=== PATIENT | male | born 1970 | race Two or more races ===

== ENCOUNTER → 2024-06-11 | Outpatient (CLI) | payer MEDICARE, MEDICAID, SELFPAY ==
[2024-06-11 08:54] LABS: Prostate Specific Antigen 1.55 ng/mL (0-4.00)
== END | disposition home or self-care (01) ==
PROVIDERS: PCP Urology; Referring Provider Urology; Visit Provider Urology
DX: R97.20 Elevated prostate specific antigen [PSA] (principal)
CPT/HCPCS: 36415; 84153

== ENCOUNTER → 2024-06-20 | Outpatient (BNVA) | payer MEDICARE, MEDICAID, SELFPAY | END | disposition home or self-care (01) | PROVIDERS: PCP Nurse Practitioner Primary Care; Referring Provider Nurse Practitioner Primary Care; Visit Provider Urology | DX: N40.1 Benign prostatic hyperplasia with lower urinary tract symptoms (principal); N13.8 Other obstructive and reflux uropathy; N52.9 Male erectile dysfunction, unspecified; E66.01 Morbid (severe) obesity due to excess calories; I10 Essential (primary) hypertension; E11.9 Type 2 diabetes mellitus without complications | CPT/HCPCS: 81003; 99212; G0463 ==

== ENCOUNTER 2024-07-08 09:15 | Day surgery (SDC) | payer MEDICARE, MEDICAID, SELFPAY ==
[2024-07-07 15:39] VITALS: BMI 44.4
[2024-07-08] VITALS (23 sets, daily range): BP systolic 127–176; BP diastolic 83–116; PULSE 56–83; RESP 12–24; TEMP 36.3–36.7; O2SAT 94–98
[2024-07-08] MEDS: hydrALAZINE INJ 20 MG/ML VIAL 10 MG IV (10:53)
[2024-07-08] MEDS: fentaNYL CIT INJ 50 mCg/ML AMP 2ML (ASD USE ONLY) IV (11:42)
[2024-07-08] MEDS: MIDAZOLAM INJ 1 MG/ML VIAL 2 ML (ASD USE ONLY) 2 MG IV (11:42)
[2024-07-08] MEDS: RINGERS LACTATED 1000 ML 1,000 ML 60 ML IV (11:42)
[2024-07-08] MEDS: DiphenhydrAMINE INJ 50 MG/ML VIAL 25 MG IV (11:45)
== END 2024-07-08 13:04 | disposition home or self-care (01) ==
PROVIDERS: PCP Physician Assistant; Referring Provider Specialist; Visit Provider Specialist
PROC: 0DBE8ZX Excision of Large Intestine, Via Natural or Artificial Opening Endoscopic, Diagnostic (ICD-10-PCS; CPT 45380; principal; 2024-07-08 14:30)
PROC: (CPT 43239; 2024-07-08 14:30)
DX: C20 Malignant neoplasm of rectum (principal); K60.2 Anal fissure, unspecified; K64.9 Unspecified hemorrhoids; K29.51 Unspecified chronic gastritis with bleeding; K63.5 Polyp of colon
CPT/HCPCS: 45385; 45380; A4649; J0360; J1200; J2250; J3010; J7120

== ENCOUNTER 2024-07-09 12:56 | Inpatient (IN) | payer MEDICARE, MEDICAID, SELFPAY ==
[2024-07-09 13:25] VITALS: BP 133/98; PULSE 86; RESP 18; TEMP 36.2; O2SAT 95
[2024-07-09 13:41] VITALS: BMI 46.1
--- NOTE | 2024-07-09 14:04 | XR_ITS ---
Examination: CT chest with intravenous contrast CT abdomen with intravenous contrast CT pelvis with intravenous contrast 2-D coronal and sagittal reconstructions Time of exam: July 09, [address] abdomen and pelvis June 21, 2019 INDICATIONS: Diagnosis colorectal cancer, onset lower abdominal pain today CTDI: vol (mGy) : 15.5 DLP: (mGycm): 1354 Technique: Multiple axial images of the chest, abdomen and pelvis with intravenous contrast, 3.0 mm slice thickness. Images obtained post intravenous injection Isovue 370 60 cc. 2-D sagittal and coronal reconstructions. Low dose protocols were performed. One or more of the following dose reduction techniques were used; automated exposure control, adjustment of the mA and/or KV according to patient size, use of iterative reconstruction technique. Findings: Bilateral thyroid calcifications, 10 mm right thyroid nodule No thoracic lytic aneurysm dilatation No pulmonary artery filling defects Significant calcification left anterior descending coronary artery. No paratracheal tracheobronchial or bronchopulmonary adenopathy No pneumonia, pulmonary edema, pleural disease or pulmonary nodules No liver or splenic lesions No gallstones No pancreatic or adrenal mass No interval of abdominal or pelvic lymphadenopathy. Moderate renal parenchymal scar formation 20 mm fat-containing umbilical hernia Normal appendix No bowel obstruction Mediolateral prostate dimension 5.5 cm Urinary bladder is intact Moderate osteopenia IMPRESSION: No interval metastatic disease
[2024-07-09] MEDS: DEXTROSE 5%-LACTATED RINGERS 1,000 ML 50 ML IV (15:27)
[2024-07-09 16:00] VITALS: BP 154/89; PULSE 78; RESP 18; TEMP 37.2; O2SAT 94
--- NOTE | 2024-07-09 16:20 | PD.SURHP ---
HPI Date of Admission 07/09/24 12:56 Chief Complaint Chief Complaint: Rectosigmoid colon cancer and multiple polyps. 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 He also has had multiple polyps. He had a recent colonoscopy on Sunday and the proximal margin was marked for resection. He will undergo exploratory laparotomy sigmoid resection and coloproctostomy. Risk benefits and alternatives were discussed in detail with the patient and the family and informed consent was obtained. He has a history of diabetes he also has history of corneal transplantation for the right eye. He also had an upper GI endoscopy that showed that he has gastritis. Patient will undergo CT scan of the chest abdomen and pelvis with contrast prior to surgery. Estimated length of stay about 5 to 7 days. Past Medical History Past Medical History NEUROLOGIC: Negative Neurological Disorders or Seizures CARDIAC: Positive Hypercholesterolemia and Hypertension; Negative Cardiac Disorders or Congestive Heart Failure RESPIRATORY: Negative Chronic Obstructive Pulmonary Disease (COPD) or Asthma GASTROINTESTINAL: Positive Obesity; Negative Gastrointestinal Disorders GENITOURINARY: Negative Genitourinary Disorders or Renal Disease REPRODUCTIVE: Negative Breast Cancer MUSCULOSKELETAL: Negative Musculoskeletal Disorders ENDOCRINE: Positive Endocrine Disorders (diabetes); Negative Diabetes Mellitus Type 1 or Diabetes Mellitus Type 2 HEMATOLOGIC: Negative Blood Disorders or Sickle Cell Disease OTHER HISTORY: Negative Autoimmune Disease, Blood Transfusions, Anesthesia Reactions, Clostridium Difficile or Breast Cancer Family History FAMILY HISTORY: Positive Family Cardiac Disorders (hypertension mother) Surgical History SURGICAL: Positive Eye Surgery; Negative Cardiac Surgery, Endocrine Surgery, Abdominal Surgery, Nephrectomy, Joint Replacement, Neurologic Surgery or Mastectomy Social History SMOKING STATUS: Never smoker Meds Home Medications and Allergies Home Medications ?Medication ?Instructions ?Recorded ?Confirmed ?Type valsartan 160 1 tab PO QDAY 04/26/23 07/08/24 History mg-hydrochlorothiazide 12.5 mg tablet tamsulosin 0.4 mg capsule 0.4 mg PO QHS 06/20/24 07/08/24 History acyclovir 400 mg tablet 400 mg PO QDAY 07/08/24 07/08/24 History amlodipine 5 mg tablet 5 mg PO QDAY 07/08/24 07/08/24 History atorvastatin 20 mg tablet 20 mg PO QDAY 07/08/24 07/08/24 History empagliflozin 12.5 mg-metformin 1 tab PO QDAY 07/08/24 07/08/24 History 500 mg tablet (Synjardy) Allergies Allergy/AdvReac Type Severity Reaction Status Date / Time No Known Allergies Allergy Verified 07/08/24 09:59 Exam Vital Signs Temp Pulse Resp BP Pulse Ox O2 Del Method 97.2 F 86 18 133/98 H 95 Room Air 07/09/24 13:25 07/09/24 13:25 07/09/24 13:25 07/09/24 13:25 07/09/24 13:25 07/09/24 13:25 Constitutional Constitutional: no acute distress Comments: This patient is obese. Routine HEENT Exam Head: Present normocephalic Eye: Present EOMI and PERRL ENT: Present mucous membranes moist Routine Neck Exam Neck: Present supple and trachea midline Routine Chest/Breast/Axilla Exam Chest wall: Absent tenderness or mass Routine Respiratory Exam Respiratory: Present chest non-tender, lungs clear, normal breath sounds and no resp distress; Absent respiratory distress Routine Cardiovascular Exam Cardiovascular: Present RRR Routine Abdominal Exam Abdominal: Present soft and normoactive bowel sounds Routine Extremities Exam Extremities: Present full ROM Routine Skin Exam Skin: Present intact, dry and warm Routine Neurological Exam Neurological: Present alert, oriented X3 and CN II-XII intact Routine Psychiatric Exam Psychiatric: Present normal affect and normal thought process Results Results: Laboratory Laboratory results: pending Results: Imaging CT scan - abdomen: pending CT scan - chest: pending CT scan - pelvis: pending EKG: pending Assessment & Plan Problem List (1) Rectosigmoid cancer: Status: Acute (2) Colorectal polyps: Status: Acute (3) Hypertension: Qualifiers: Hypertension type: essential hypertension Qualified Code(s): I10 - Essential (primary) hypertension Status: Chronic (4) Obesity (BMI 30-39.9): Status: Chronic Plan Exploratory laparotomy sigmoid resection and coloproctostomy. Risk benefits alternatives were discussed with the patient and family and informed consent is obtained. Quality Measures Quality Measures VTE prophylaxis
--- NOTE | 2024-07-09 16:31 | EKG_ITS ---
[facility] Test Date: 2024-07-09 Pat Name: DONNA ROSALES [facility] Gender: Male Full Roll Inspector: KELBY : 1970 Requested By: Samuel Beckham Order Number: [id number] Reading MD: Samuel Beckham Measurements Intervals [place] Rate: 73 P: 25 CT: 185 QRS: 29 QRSD: 89 T: 30 QT: 393 QTc: 434 Interpretive Statements SINUS RHYTHM LOW QRS VOLTAGE IN PRECORDIAL LEADS POSSIBLE ANTERIOR MYOCARDIAL INFARCTION , PROBABLY OLD No previous ECG available for comparison /store/S0/[id number]/ecg/[id number].pdf
[2024-07-09 17:16] LABS: Basophils % (Auto) 0 % (0-2.5); Eosinophils # (Auto) 0.1 Thou/mm3 (0.0-0.5); Eosinophils % (Auto) 1 % (0-10); Hematocrit 50.9 % (41.0-53.0); Hemoglobin 17.4 g/dL (13.5-16.0); Immature Granulocytes % (Auto) 0 % (0-0); Immature Granulocytes Auto 0.03 Thou/mm3 (0.00-0.00); Lymphocytes # (Auto) 2.3 Thou/mm3 (1.0-4.8); Lymphocytes % (Auto) 25 % (10-50); Mean Corpuscular HGB Conc 34.2 g/dl (31.0-37.0); Mean Corpuscular Hemoglobin 31.2 pg (25.0-35.0); Mean Corpuscular Volume 91 fL (80-100); Monocytes # (Auto) 0.9 Thou/mm3 (0.0-0.8); Monocytes % (Auto) 10 % (0-12); Neutrophils # (Auto) 5.9 Thou/mm3 (1.8-7.7); Neutrophils % (Auto) 64 % (37-80); Nucleated Red Blood Cell % 0 /100 WBC (0); Platelet Count 270 Thou/mm3 (140-440); RDW Standard Deviation 44.5 fL (35.1-43.9); Red Blood Count 5.57 Miln/mm3 (4.50-5.90); White Blood Count 9.2 Thou/mm3 (3.8-10.6)
[2024-07-09 17:33] LABS: INR 1.1 (0.9-1.3); Partial Thromboplastin Time 26.2 Seconds (22.0-36.0); Prothrombin Time 11.7 Seconds (9.0-12.2)
[2024-07-09 17:34] LABS: Alanine Aminotransferase 25 U/L (10-49); Albumin, Serum 4.7 gm/dL (3.5-5.0); Albumin/Globulin Ratio 1.5 (1.2-2.2); Alkaline Phosphatase 100 U/L (46-116); Anion Gap 6 (7-16); Aspartate Amino Transferase 19 U/L (0-34); BUN/Creatinine Ratio 10 Ratio (12-20); Blood Urea Nitrogen 10 mg/dL (9-23); Calcium 9.9 mg/dL (8.3-10.6); Calcium (Corrected) 9.9 mg/dL (8.5-10.1); Carbon Dioxide 28.5 mMol/L (20.0-31.0); Chloride 105 mMol/L (98-107); Estimated Creatinine Clearance 119.2 mL/min (>60); Globulin 3.2 gm/dL (2.3-3.5); Glucose 97 mg/dL (74-106); Osmolality,Calculated 276 (275-295); Potassium 4.5 mMol/L (3.4-5.1); Sodium 139 mMol/L (136-145); Total Protein 7.9 gm/dL (5.7-8.2); eGFR > 60 See Note
--- NOTE | 2024-07-09 17:52 | PC.NURSE ---
Dr. Beckham, order clear liquid diet, NPO after midnight, patient can take blood pressure medications with small sip of water tomorrow morning. Orders received, read back, and carried out.
[2024-07-09 20:00] VITALS: BP 127/87; PULSE 82; RESP 18; TEMP 36.3; O2SAT 92
[2024-07-09] MEDS: ATORVASTATIN CALCIUM 20 MG TABLET PO (21:14)
[2024-07-09] MEDS: TAMSULOSIN HCL 0.4 MG CAPSULE PO (21:15)
[2024-07-09] MEDS: ACYCLOVIR 200 MG CAPSULE 400 MG PO (21:15)
[2024-07-10] VITALS (15 sets, daily range): BP systolic 97–143; BP diastolic 73–90; PULSE 62–109; RESP 12–20; TEMP 36.1–36.8; O2SAT 93–98
[2024-07-10] MEDS: amLODIPine BESYLATE 5 MG TABLET PO (06:11)
[2024-07-10] MEDS: HYDROCHLOROTHIAZIDE 25 MG PO (06:12)
[2024-07-10] MEDS: VALSARTAN 160 MG PO (06:12)
--- NOTE | 2024-07-10 08:45 | PC.NURSE ---
Patient to OR via bed for Ex lap sigmoid colectomy and coloproctostomy.
--- NOTE | 2024-07-10 14:18 | ESOP_ITS ---
Date of Procedure 07/10/24 Pre Op Diagnosis Sigmoid colon cancer and umbilical hernia Post Op Diagnosis Same Procedure Exploratory laparotomy sigmoid colectomy and coloproctostomy and umbilical hernia repair on July 10, 2024 Findings This patient had an invasive carcinoma at the rectosigmoid junction. After the specimen was removed there was clear margin. Umbilical hernia was incarcerated with omentum and it was removed. Procedure Description The patient was interviewed in the preop area along with his daughter. The procedure was again discussed with the patient and all questions were answered and informed consent was obtained. Patient to undergo explore laparotomy sigmoid colectomy and coloproctostomy and repair of the umbilical hernia. After that the patient is taken to the operating room and general anesthesia was administered in a satisfactory manner. IV antibiotic Mefoxin 2 g was given. A timeout procedure was carried out. Antiembolism measures were taken. Patient is positioned in the modified lithotomy position in yellowfins. Parkinson catheter is in place. Abdomen is prepped and draped in usual manner. Vertical incision is made around the umbilicus and the umbilical hernia is identified. The umbilical hernia sac was dissected and removed the incarcerated omentum was released. The sac was sent off as a specimen. After opening the abdomen via the midline incision exploration is carried out and there is no palpable tumor inside the abdomen. Liver has no palpable lesions. Omni-Tract self-retaining retractor is used to retract the abdominal viscera. Pelvic cavity was exposed. This was a difficult longer procedure because of the patient's weight and adiposity. The sigmoid colon is mobilized by making an incision in the paracolic gutter. Patient did have proximal polyps and Kiara ink tattoo was noted that was proximal to the polyps. The site of resection was selected proximal to the Kiara ink tattoo. The incision is carried out in the paracolic gutter all the way up to the perirectal region. A tennis racquet incision is made around the rectum. By gentle dissection the presacral space is opened at the rectal mesentery is included in the resection. At this time the proximal line of resection was determined and AALIYAH stapler was used to divide the proximal colon. After that the sigmoid and rectal mesentery was divided with LigaSure equipment. The inferior mesenteric artery was individually ligated X 2 and divided. The proximal stump was ligated twice with 0 silk ties. Distally the dissection was carried out posteriorly and anteriorly the rectum from the bladder anteriorly. The middle rectal vessels were divided with LigaSure and then the distal area of the rectum was identified and the site of resection was determined. Laparoscopic [place] stapler was used to divide the rectum distally. After the rectum was divided the specimen was removed and I opened the specimen on a table and it was noted to have a clear distal margin by several centimeters. Proximal margin was clear. After that hemostasis is achieved and the pelvic cavity and pelvic cavity was irrigated with copious amount of saline solution. The attention was diverted to the proximal colon and the edge was cleared of adipose tissue. It was ascertained that there is adequate length of the proximal colon reaching the rectum without any tension. After that a vascular clamp is placed on the proximal colon and the staple suture line was removed. The proximal colon lumen was sized with the sizers and it sized at 29 mm. After that 29 mm EEA stapler was used. The 29 mm anvil entered the proximal colon easily. 2-0 PDS pursestring suture is placed on the proximal colon. The anvil is placed inside the proximal colon and the pursestring is tied over it. After that with the help of the food and beverage assistant manager the anus was dilated to 32 mm. The 29 mm circular stapler was introduced into the distal rectum and then it was gently advanced up to the suture line. After adequate location is identified the spike is advanced through the distal suture line and then is connected to the anvil and the stapler is closed. There is no tension on the anastomosis and the proximal colon is loosely laying down in the pelvic cavity. Once the stapler is closed the line is in the target line and it allowed +1 turn. After adequate positioning is identified the stapler is fired. It was gently opened and rotated and removed. There was no bleeding. The donuts were identified and examined. Both the donuts are complete. Then a disposable sigmoidoscope is used in the distal rectum. A vascular clamp is applied proximal to the colonic anastomosis. The pelvic cavity is filled with saline solution and gently the rectum was inflated. There is no air leak attesting to good anastomosis. The rectum and anastomosis is retroperitonealized. The mesentery Was closed using 2-0 chromic interrupted sutures. This was done on the both the sides of the sigmoid colon. After this the Omni-Tract retractor was removed. All the laps and instrument counts were obtained they are correct x 2. The peritoneum is approximated by 2- 0 chromic continuous suture from suprapubic area to the umbilicus. The linea alba is approximated by 0 PDS continuous sutures interrupted in the middle. The umbilical hernia defect was repaired in this manner. After that the subcutaneous tissue was irrigated with saline solution. Patient has generous subcutaneous adipose tissue thickness and therefore I decided to leave the wound open. I reconstructed the umbilical skin incision scar by interrupted 2-0 chromic subcuticular stitches. The rest of the incision was packed with fluffs. Complications none patient tolerated procedure very well. Anesthesia GETA Drains None. Implants None. Pathology / specimen Other (Sigmoid colon, anastomotic donuts proximal suture line , umbilical hernia sac) Estimated Blood Loss 100 Condition Stable Disposition PACU Surgeon Samuel Beckham MD Surgical Staff Operation Date: 07/10/24 09:15 Case Staff STRETCHING MACHINE TENDER FRAME: Mikey Russell RNgrants officer: Anne Obrien RNgrants officer: Danna Estrada RN craniologist travel [facility] neurosurgical nurse practitioner (4) Hypertension Qualifiers: Hypertension type: essential hypertension Qualified Code(s): I10 - Essential (primary) hypertension
--- NOTE | 2024-07-10 14:27 | SUR.PHASEI ---
1427: Pt. AAOx4, vitals stable, breathing unlabored, complaint of pain, pain medicine given at bedisde by Mikey PIERRE, dressing to ABD CDI, no active bleed noted, ABD Binder in place, echols catheter in place, report received from Mikey PIERRE and Steve ANGLIN.
[2024-07-10] MEDS: HYDROmorphone INJ 2 MG/ML VIAL 0.5 MG IV (14:48)
--- NOTE | 2024-07-10 15:20 | SUR.PHASEI ---
1520: Pt. AAOx4, vitals stable, breathing unlabored, no complaint of pain or nausea, dressing to ABD CDI, ABD binder in place, echols catheter in place, gave report to Argelia ANGLIN prior to transfer to room 369, family made aware of transfer to room.
--- NOTE | 2024-07-10 15:57 | PC.SS ---
SS met with patient, , and dtr regarding his d/c plan.? Pt is alert/oriented.? Pt was admitted for Colorectal Cancer.? confirmed patient's demographic and contact information is correct on facesheet.? Pt resides with Colorectal Cancer.? Pt ambulates independently without assistance or DME.? Pt is ok with all ADLs.? Patient?s pharmacy of choice is [facility] on [address].? Pt named his , Ariane Quintero medical decision maker if he is unable.? SS provided verbal options for d/c to home or SNF.? Patient?s choice is to return home upon d/c.? is open to SNF if recommended by roger.? states pt is pre diabetic.? Pt is not on dialysis.? Pt last followed up with PCP in June.?? D/C plan:? Return home Next of Kin:? Brittni Quintero, , phone# [phone] PCP:? Michelle Jamison? Address:? Correct on facesheet
[2024-07-10] MEDS: SODIUM CHLORIDE 0.9% 1000 ML 1,000 ML 80 ML IV (16:03)
[2024-07-10] MEDS: prednisoLONE OP SUSP 1% 5 ML BTL 1 DROP RIGHT EYE (17:11)
--- NOTE | 2024-07-10 17:38 | PC.NURSE ---
Patient back to med surg unit from surgery via bed around 15:31 PM. Patient is on 3L oxy mask and lethargic. Provided comfort and safety.
[2024-07-10] MEDS: ACETAMINOPHEN IVPB 1,000 MG/100 ML VIAL 250 MG IV (17:52)
[2024-07-10] MEDS: KETOROLAC INJ 30 MG/ML VIAL IVP (17:53)
[2024-07-10] MEDS: HYDROmorphone INJ 2 MG/ML VIAL 1 MG IVP (20:46)
[2024-07-10] MEDS: LATANOPROST OP SOL 0.005% 2.5 ML BTL 1 DROP RIGHT EYE (20:52)
[2024-07-10] MEDS: GABAPENTIN 100 MG CAPSULE 200 MG PO (20:55)
[2024-07-10] MEDS: PANTOPRAZOLE 40 MG TABLET PO (20:55)
[2024-07-10] MEDS: TIMOLOL RIGHT EYE (20:58)
[2024-07-10] MEDS: BRIMONIDINE RIGHT EYE (20:58)
[2024-07-11] VITALS (10 sets, daily range): BP systolic 104–132; BP diastolic 59–84; PULSE 83–95; RESP 18–20; TEMP 36.1–37.2; O2SAT 92–98; BMI 46.0
[2024-07-11] MEDS: ACETAMINOPHEN IVPB 1,000 MG/100 ML VIAL 250 MG IV ×3 (00:04→11:00)
[2024-07-11] MEDS: KETOROLAC INJ 30 MG/ML VIAL IVP ×4 (05:57→17:00)
[2024-07-11] MEDS: SODIUM CHLORIDE 0.9% 1000 ML 1,000 ML 80 ML IV ×2 (06:43→22:11)
[2024-07-11] MEDS: BRIMONIDINE RIGHT EYE ×2 (08:27→21:03)
[2024-07-11] MEDS: GABAPENTIN 100 MG CAPSULE 200 MG PO ×2 (08:27→20:57)
[2024-07-11] MEDS: TIMOLOL RIGHT EYE ×2 (08:27→21:03)
[2024-07-11] MEDS: PANTOPRAZOLE 40 MG TABLET PO ×2 (08:27→20:57)
[2024-07-11 09:30] LABS: Alanine Aminotransferase 17 U/L (10-49); Albumin, Serum 3.8 gm/dL (3.5-5.0); Albumin/Globulin Ratio 1.5 (1.2-2.2); Alkaline Phosphatase 71 U/L (46-116); Anion Gap 8 (7-16); Aspartate Amino Transferase 13 U/L (0-34); BUN/Creatinine Ratio 14 Ratio (12-20); Bilirubin,Total 2.3 mg/dL (0.3-1.2); Blood Urea Nitrogen 23 mg/dL (9-23); Calcium 8.5 mg/dL (8.3-10.6); Calcium (Corrected) 8.7 mg/dL (8.5-10.1); Carbon Dioxide 25.2 mMol/L (20.0-31.0); Chloride 106 mMol/L (98-107); Creatinine (Component) 1.7 mg/dL (0.6-1.3); Estimated Creatinine Clearance 70.1 mL/min (>60); Globulin 2.5 gm/dL (2.3-3.5); Glucose 121 mg/dL (74-106); Magnesium 1.7 mg/dL (1.6-2.6); Osmolality,Calculated 282 (275-295); Potassium 4.2 mMol/L (3.4-5.1); Sodium 139 mMol/L (136-145); Total Protein 6.3 gm/dL (5.7-8.2); eGFR 47 See Note
--- NOTE | 2024-07-11 09:33 | PC.SS ---
Follow up note: On IV antibiotic. Pt is on IV meds. Pt will return home upon dc.
[2024-07-11] MEDS: FLUTICASONE NAS SPRAY 0.05% 16 GM BTL 1 SPRAY NASAL ×2 (10:58→20:58)
[2024-07-11] MEDS: prednisoLONE OP SUSP 1% 5 ML BTL 1 DROP RIGHT EYE ×2 (11:07→20:59)
[2024-07-11 11:52] LABS: Basophils % (Auto) 0 % (0-2.5); Eosinophils % (Auto) 0 % (0-10); Hematocrit 44.2 % (41.0-53.0); Hemoglobin 14.7 g/dL (13.5-16.0); Immature Granulocytes % (Auto) 0 % (0-0); Immature Granulocytes Auto 0.05 Thou/mm3 (0.00-0.00); Lymphocytes # (Auto) 1.7 Thou/mm3 (1.0-4.8); Lymphocytes % (Auto) 13 % (10-50); Mean Corpuscular HGB Conc 33.3 g/dl (31.0-37.0); Mean Corpuscular Hemoglobin 31.3 pg (25.0-35.0); Mean Corpuscular Volume 94 fL (80-100); Monocytes # (Auto) 1.7 Thou/mm3 (0.0-0.8); Monocytes % (Auto) 13 % (0-12); Neutrophils # (Auto) 9.8 Thou/mm3 (1.8-7.7); Neutrophils % (Auto) 74 % (37-80); Nucleated Red Blood Cell % 0 /100 WBC (0); Platelet Count 251 Thou/mm3 (140-440); RDW Standard Deviation 45.5 fL (35.1-43.9); White Blood Count 13.2 Thou/mm3 (3.8-10.6)
--- NOTE | 2024-07-11 14:25 | PD.SURPROG ---
Documentation for date of: 07/11/24 Subjective Subjective Brief History: This 54-year-old gentleman has had rectal bleeding and he was evaluated and found to have 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 He also has had multiple polyps. He had a recent colonoscopy on Sunday and the proximal margin was marked for resection. He will undergo exploratory laparotomy sigmoid resection and coloproctostomy. Risk benefits and alternatives were discussed in detail with the patient and the family and informed consent was obtained. He has a history of diabetes he also has history of corneal transplantation for the right eye. He also had an upper GI endoscopy that showed that he has gastritis. Patient will undergo CT scan of the chest abdomen and pelvis with contrast prior to surgery. Estimated length of stay about 5 to 7 days. July 11, 2024 postop day 1 This patient is status post colectomy and coloproctostomy. A CBC was done today is H&H is stable. Chemistry shows that he has reduced renal function he has a Parkinson catheter at this time that is draining well. He is using the incentive spirometer and it shows that he is able to take in about 2 L to 2-1/2 L of vital capacity. He has not been getting out of the bed yet. He has not much of abdominal or otherwise pain. He is still getting pain medication IV. Acetaminophen and Toradol is working very well for him along with occasional Dilaudid. The abdominal wound dressing is changed and wet and dry dressing is being carried out at this time. There are no other complaints other than common cold and nasal drainage. He requested Nasacort that he is using at home for allergies. Patient is encouraged to get out of the bed in the chair I will remove the Parkinson catheter at this time. He is passing flatus so we will start clear liquid diet. Exam Vital Signs Temp Pulse Resp BP Pulse Ox O2 Del Method O2 Flow Rate 98.7 F 85 18 132/74 H 92 L Room Air 3 07/11/24 12:07/11/24 12:07/11/24 12:07/11/24 12:07/11/24 12:07/11/24 12:07/11/24 11:38 Narrative Exam Patient is in the bed his daughter is in the room the surgical procedure was discussed with the patient and his daughter and explained. Patient is using incentive spirometer about 2500 cc at a time and is encouraged to do that about 10 times an hour. The lungs are clear. Abdominal dressing is changed and the skin and subcutaneous tissues are left open with wet-to-dry dressing is carried out. Currently he has been covered by IV antibiotic. Bowel tones are present. Extremities are unremarkable. Results Results: Laboratory Laboratory Narrative: CBC is essentially normal chemistry shows that he has reduced renal function. Laboratory results: results reviewed Results: Imaging Imaging narrative: The CAT scan showed that he has a calcified left anterior descending artery that puts him at a higher risk of developing VT. Assessment & Plan Diagnosis (1) Rectosigmoid cancer: Status: Acute (2) Obesity (BMI 30-39.9): Status: Chronic (3) Hypertension: Status: Chronic Plan Will start clear liquid diet plan to get the patient out of bed and ambulate. Remove the Parkinson catheter continue with incentive spirometry. Continue with wet-to-dry dressing of the abdominal wound. Once the patient has GI motility established and is tolerating diet and ambulating well and become self independent and we will discharge him home. Procedures Procedure Date 07/10/24 Procedures Exploratory laparotomy sigmoid colectomy and coloproctostomy and umbilical hernia repair on July 10, 2024 (3) Hypertension Qualifiers: Hypertension type: primary hypertension Qualified Code(s): I10 - Essential (primary) hypertension
[2024-07-11] MEDS: HYDROmorphone INJ 2 MG/ML VIAL 1 MG IVP (19:45)
[2024-07-11] MEDS: LATANOPROST OP SOL 0.005% 2.5 ML BTL 1 DROP RIGHT EYE (21:02)
[2024-07-12] VITALS (8 sets, daily range): BP systolic 122–146; BP diastolic 72–86; PULSE 71–88; RESP 17–19; TEMP 35.9–36.8; O2SAT 94–96
[2024-07-12] MEDS: KETOROLAC INJ 30 MG/ML VIAL IVP ×5 (00:16→23:49)
[2024-07-12] MEDS: FLUTICASONE NAS SPRAY 0.05% 16 GM BTL 1 SPRAY NASAL ×2 (08:25→20:45)
[2024-07-12] MEDS: VALSARTAN 80 MG TABLET 160 MG PO (08:26)
[2024-07-12] MEDS: hydroCHLOROthiazide 12.5 MG CAPSULE 25 MG PO (08:26)
[2024-07-12] MEDS: prednisoLONE OP SUSP 1% 5 ML BTL 1 DROP RIGHT EYE ×2 (08:27→20:56)
[2024-07-12] MEDS: GABAPENTIN 100 MG CAPSULE 200 MG PO ×2 (08:27→20:44)
[2024-07-12] MEDS: BRIMONIDINE RIGHT EYE ×2 (08:27→20:51)
[2024-07-12] MEDS: PANTOPRAZOLE 40 MG TABLET PO ×2 (08:27→20:45)
[2024-07-12] MEDS: TIMOLOL RIGHT EYE ×2 (08:27→20:51)
[2024-07-12 11:24] LABS: Basophils % (Auto) 0 % (0-2.5); Eosinophils # (Auto) 0.2 Thou/mm3 (0.0-0.5); Eosinophils % (Auto) 2 % (0-10); Hematocrit 38.4 % (41.0-53.0); Hemoglobin 13.1 g/dL (13.5-16.0); Immature Granulocytes % (Auto) 0 % (0-0); Immature Granulocytes Auto 0.03 Thou/mm3 (0.00-0.00); Lymphocytes # (Auto) 1.6 Thou/mm3 (1.0-4.8); Lymphocytes % (Auto) 16 % (10-50); Mean Corpuscular HGB Conc 34.1 g/dl (31.0-37.0); Mean Corpuscular Hemoglobin 31.5 pg (25.0-35.0); Mean Corpuscular Volume 92 fL (80-100); Monocytes # (Auto) 1.3 Thou/mm3 (0.0-0.8); Monocytes % (Auto) 13 % (0-12); Neutrophils # (Auto) 6.9 Thou/mm3 (1.8-7.7); Neutrophils % (Auto) 69 % (37-80); Nucleated Red Blood Cell % 0 /100 WBC (0); Platelet Count 210 Thou/mm3 (140-440); RDW Standard Deviation 44.7 fL (35.1-43.9); Red Blood Count 4.16 Miln/mm3 (4.50-5.90)
[2024-07-12 11:38] LABS: Alanine Aminotransferase 16 U/L (10-49); Albumin, Serum 3.6 gm/dL (3.5-5.0); Albumin/Globulin Ratio 1.4 (1.2-2.2); Alkaline Phosphatase 65 U/L (46-116); Anion Gap 6 (7-16); Aspartate Amino Transferase 15 U/L (0-34); BUN/Creatinine Ratio 16 Ratio (12-20); Bilirubin,Total 1.5 mg/dL (0.3-1.2); Blood Urea Nitrogen 14 mg/dL (9-23); Calcium 8.6 mg/dL (8.3-10.6); Calcium (Corrected) 8.9 mg/dL (8.5-10.1); Carbon Dioxide 29.3 mMol/L (20.0-31.0); Chloride 105 mMol/L (98-107); Creatinine (Component) 0.9 mg/dL (0.6-1.3); Estimated Creatinine Clearance 132.4 mL/min (>60); Globulin 2.6 gm/dL (2.3-3.5); Glucose 103 mg/dL (74-106); Osmolality,Calculated 279 (275-295); Potassium 4.1 mMol/L (3.4-5.1); Sodium 140 mMol/L (136-145); Total Protein 6.2 gm/dL (5.7-8.2); eGFR > 60 See Note
[2024-07-12] MEDS: SODIUM CHLORIDE 0.9% 1000 ML 1,000 ML 80 ML IV (12:42)
[2024-07-12] MEDS: HYDROmorphone INJ 2 MG/ML VIAL 1 MG IVP (16:08)
[2024-07-12] MEDS: ACYCLOVIR 200 MG CAPSULE 400 MG PO (20:45)
[2024-07-12] MEDS: LATANOPROST OP SOL 0.005% 2.5 ML BTL 1 DROP RIGHT EYE (20:46)
--- NOTE | 2024-07-12 22:15 | PD.SURPROG ---
Documentation for date of: 07/12/24 Subjective Subjective Brief History: This 54-year-old gentleman has had rectal bleeding and he was evaluated and found to have 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 He also has had multiple polyps. He had a recent colonoscopy on Sunday and the proximal margin was marked for resection. He will undergo exploratory laparotomy sigmoid resection and coloproctostomy. Risk benefits and alternatives were discussed in detail with the patient and the family and informed consent was obtained. He has a history of diabetes he also has history of corneal transplantation for the right eye. He also had an upper GI endoscopy that showed that he has gastritis. Patient will undergo CT scan of the chest abdomen and pelvis with contrast prior to surgery. Estimated length of stay about 5 to 7 days. July 11, 2024 postop day 1 This patient is status post colectomy and coloproctostomy. A CBC was done today is H&H is stable. Chemistry shows that he has reduced renal function he has a Parkinson catheter at this time that is draining well. He is using the incentive spirometer and it shows that he is able to take in about 2 L to 2-1/2 L of vital capacity. He has not been getting out of the bed yet. He has not much of abdominal or otherwise pain. He is still getting pain medication IV. Acetaminophen and Toradol is working very well for him along with occasional Dilaudid. The abdominal wound dressing is changed and wet and dry dressing is being carried out at this time. There are no other complaints other than common cold and nasal drainage. He requested Nasacort that he is using at home for allergies. Patient is encouraged to get out of the bed in the chair I will remove the Parkinson catheter at this time. He is passing flatus so we will start clear liquid diet. July 12, 2024 postop day 2 This patient is s/p colectomy and coloproctostomy. Repeat CBC and CMP are stable and improved. Patient is tolerating full liquid diet well and wants to eat more. His sugar is in reasonable control. His pain is managed by IV narcotics and toradol. The wound dressing was changed and the wound has minimal drainage. The bp is in good control. Patient was restarted on Acyclovir for his eye. Patient is getting out of the bed to the bathroom. He had no bowel movement but is passing significant amount of flatus and he does not have any rectal bleeding. The physical therapy is requested to help him ambulate in the hallways. Exam Vital Signs Temp Pulse Resp BP Pulse Ox O2 Del Method O2 Flow Rate 96.7 F L 88 17 136/84 H 96 Room Air 3 07/12/24 20:00 07/12/24 20:00 07/12/24 20:00 07/12/24 20:00 07/12/24 20:00 07/12/24 20:00 07/11/24 11:38 Narrative Exam Patient and his were in the room and patient states that he wants to eat a big meal because he is hungry and he is passing flatus and is a good to eat. Is using incentive spirometer with the forced vital capacity close to 3 L. He is also a big man. Appears to be strong. Is abdominal wound dressing is dry and intact there is no drainage bowel tones are present. Lungs are clear bilaterally without any rales or rhonchi. Heart is regular rhythm without any murmurs extremities are unremarkable. Results Results: Laboratory Laboratory results: results reviewed Assessment & Plan Diagnosis (1) Rectosigmoid cancer: Status: Acute (2) Obesity (BMI 30-39.9): Status: Chronic (3) Hypertension: Status: Chronic (4) Colorectal polyps: Status: Acute Plan The patient is tolerating full liquid diet will advance his diet to mechanically soft diet. The patient to ambulate in the hallways. Physical therapy to evaluate his ability to ambulate after laparotomy. Once the patient is tolerating diet well and has a bowel movements and is self independent walking around the floor then we will consider discharging him home. It may still take a 1 to 3 days. Procedures Procedure Date 07/10/24 Procedures Exploratory laparotomy sigmoid colectomy and coloproctostomy and umbilical hernia repair on July 10, 2024 (3) Hypertension Qualifiers: Hypertension type: primary hypertension Qualified Code(s): I10 - Essential (primary) hypertension
--- NOTE | 2024-07-12 23:15 | PC.NURSE ---
Per Dr. Beckham, advance diet to consistent carb dysphagia 2 at breakfast tomorrow, 07-13-24. If patient is able to tolerate breakfast, diet may be advanced again to consistent carb dysphagia 3 per .
[2024-07-13] VITALS (10 sets, daily range): BP systolic 119–147; BP diastolic 73–91; PULSE 7–83; RESP 17–20; TEMP 36.1–36.9; O2SAT 95
[2024-07-13] MEDS: SODIUM CHLORIDE 0.9% 1000 ML 1,000 ML 80 ML IV ×2 (02:25→17:20)
[2024-07-13] MEDS: ACYCLOVIR 200 MG CAPSULE 400 MG PO ×2 (09:01→20:11)
[2024-07-13] MEDS: hydroCHLOROthiazide 12.5 MG CAPSULE 25 MG PO (09:02)
[2024-07-13] MEDS: GABAPENTIN 100 MG CAPSULE 200 MG PO ×2 (09:02→20:11)
[2024-07-13] MEDS: FLUTICASONE NAS SPRAY 0.05% 16 GM BTL 1 SPRAY NASAL ×2 (09:02→20:15)
[2024-07-13] MEDS: PANTOPRAZOLE 40 MG TABLET PO ×2 (09:03→20:11)
[2024-07-13] MEDS: VALSARTAN 80 MG TABLET 160 MG PO (09:03)
[2024-07-13] MEDS: prednisoLONE OP SUSP 1% 5 ML BTL 1 DROP RIGHT EYE ×2 (09:03→20:13)
[2024-07-13] MEDS: BRIMONIDINE RIGHT EYE ×2 (09:04→20:14)
[2024-07-13] MEDS: TIMOLOL RIGHT EYE ×2 (09:04→20:14)
[2024-07-13] MEDS: KETOROLAC INJ 30 MG/ML VIAL IVP ×2 (11:48→18:02)
--- NOTE | 2024-07-13 15:12 | PC.SS ---
Rounding: POD #3, pain management, increase ambulation
--- NOTE | 2024-07-13 18:23 | PC.NURSE ---
abd drsg changed, surgical incisions are clean and pink, wet to dry applied to 3 open areas
--- NOTE | 2024-07-13 19:32 | PD.SURPROG ---
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 He also has had multiple polyps. He had a recent colonoscopy on Sunday and the proximal margin was marked for resection. He will undergo exploratory laparotomy sigmoid resection and coloproctostomy. Risk benefits and alternatives were discussed in detail with the patient and the family and informed consent was obtained. He has a history of diabetes he also has history of corneal transplantation for the right eye. He also had an upper GI endoscopy that showed that he has gastritis. Patient will undergo CT scan of the chest abdomen and pelvis with contrast prior to surgery. Estimated length of stay about 5 to 7 days. July 11, 2024 postop day 1 This patient is status post colectomy and coloproctostomy. A CBC was done today is H&H is stable. Chemistry shows that he has reduced renal function he has a Parkinson catheter at this time that is draining well. He is using the incentive spirometer and it shows that he is able to take in about 2 L to 2-1/2 L of vital capacity. He has not been getting out of the bed yet. He has not much of abdominal or otherwise pain. He is still getting pain medication IV. Acetaminophen and Toradol is working very well for him along with occasional Dilaudid. The abdominal wound dressing is changed and wet and dry dressing is being carried out at this time. There are no other complaints other than common cold and nasal drainage. He requested Nasacort that he is using at home for allergies. Patient is encouraged to get out of the bed in the chair I will remove the Parkinson catheter at this time. He is passing flatus so we will start clear liquid diet. July 12, 2024 postop day 2 This patient is s/p colectomy and coloproctostomy. Repeat CBC and CMP are stable and improved. Patient is tolerating full liquid diet well and wants to eat more. His sugar is in reasonable control. His pain is managed by IV narcotics and toradol. The wound dressing was changed and the wound has minimal drainage. The bp is in good control. Patient was restarted on Acyclovir for his eye. Patient is getting out of the bed to the bathroom. He had no bowel movement but is passing significant amount of flatus and he does not have any rectal bleeding. The physical therapy is requested to help him ambulate in the hallways. July 13, 2024 postop day 3 This patient is status post colectomy and coloproctostomy for cancer. He seems to be doing well he was transferred over to the soft mechanical diet and he is enjoying that he has no difficulty with the eating he wants to eat more. He walked with the physical therapy all the way around the [place]. He said he could walk more. He has been passing flatus and he does not have any rectal bleeding. He is using the incentive spirometer to about 3000 mL capacity and is doing well with that his blood pressure is under good control with oral management. His pain control is also reasonable and now that he is tolerating oral intake I will switch him over to oral pain medication. The wound was irrigated and appears to be healing normally there is no external drainage. Abdominal binder is in place around the dressing. He has no other complaints. He is inquiring about the result of the pathology which is not back yet it is known that he has adenocarcinoma of the rectosigmoid junction. Him and his son has question about follow-up after discharge and cancer treatment center and the referral will be made after pathology result is available. The last blood sugar was 109 seen good control. Exam Vital Signs Temp Pulse Resp BP Pulse Ox O2 Del Method O2 Flow Rate 97.9 F 75 20 130/74 95 Room Air 3 07/13/24 16:07/13/24 18:07/13/24 18:07/13/24 16:07/13/24 18:07/13/24 16:07/11/24 11:38 Narrative Exam Patient is in bed and communicating freely without any difficulty he does not have much pain. Cardiopulmonary examination appears to be normal. The abdomen is nondistended the abdominal binder is in place dressing was just changed and irrigated with saline solution with wet-to-dry dressing and appeared to be intact. There is no evidence of bleeding or drainage. Extremities are unremarkable. Assessment & Plan Diagnosis (1) Rectosigmoid cancer: Status: Acute (2) Colorectal polyps: Status: Acute (3) Obesity (BMI 30-39.9): Status: Chronic (4) Hypertension: Status: Chronic Assessment Additional comments: Condition of the patient is very good and markedly improved. Plan Will try laxative of choice for the patient and will reduce the dependence on IV pain medication to oral pain medication and patient is encouraged to walk more in the hallways. Once patient began to have intestinal motility and bowel movements then he can be discharged home. Procedures Procedure Date 07/10/24 Procedures Exploratory laparotomy sigmoid colectomy and coloproctostomy and umbilical hernia repair on July 10, 2024 (4) Hypertension Qualifiers: Hypertension type: primary hypertension Qualified Code(s): I10 - Essential (primary) hypertension
[2024-07-13] MEDS: LATANOPROST OP SOL 0.005% 2.5 ML BTL 1 DROP RIGHT EYE (20:14)
[2024-07-13] MEDS: HYDROcodone/APAP 10/325 TAB PO (23:02)
[2024-07-14] VITALS (13 sets, daily range): BP systolic 112–152; BP diastolic 60–96; PULSE 62–91; RESP 17–98; TEMP 35.9–38.8; O2SAT 93–98
[2024-07-14] MEDS: SODIUM CHLORIDE 0.9% 1000 ML 1,000 ML 80 ML IV ×2 (05:29→18:14)
--- NOTE | 2024-07-14 08:09 | PD.SURPROG ---
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 He also has had multiple polyps. He had a recent colonoscopy on Sunday and the proximal margin was marked for resection. He will undergo exploratory laparotomy sigmoid resection and coloproctostomy. Risk benefits and alternatives were discussed in detail with the patient and the family and informed consent was obtained. He has a history of diabetes he also has history of corneal transplantation for the right eye. He also had an upper GI endoscopy that showed that he has gastritis. Patient will undergo CT scan of the chest abdomen and pelvis with contrast prior to surgery. Estimated length of stay about 5 to 7 days. July 11, 2024 postop day 1 This patient is status post colectomy and coloproctostomy. A CBC was done today is H&H is stable. Chemistry shows that he has reduced renal function he has a Parkinson catheter at this time that is draining well. He is using the incentive spirometer and it shows that he is able to take in about 2 L to 2-1/2 L of vital capacity. He has not been getting out of the bed yet. He has not much of abdominal or otherwise pain. He is still getting pain medication IV. Acetaminophen and Toradol is working very well for him along with occasional Dilaudid. The abdominal wound dressing is changed and wet and dry dressing is being carried out at this time. There are no other complaints other than common cold and nasal drainage. He requested Nasacort that he is using at home for allergies. Patient is encouraged to get out of the bed in the chair I will remove the Parkinson catheter at this time. He is passing flatus so we will start clear liquid diet. July 12, 2024 postop day 2 This patient is s/p colectomy and coloproctostomy. Repeat CBC and CMP are stable and improved. Patient is tolerating full liquid diet well and wants to eat more. His sugar is in reasonable control. His pain is managed by IV narcotics and toradol. The wound dressing was changed and the wound has minimal drainage. The bp is in good control. Patient was restarted on Acyclovir for his eye. Patient is getting out of the bed to the bathroom. He had no bowel movement but is passing significant amount of flatus and he does not have any rectal bleeding. The physical therapy is requested to help him ambulate in the hallways. July 13, 2024 postop day 3 This patient is status post colectomy and coloproctostomy for cancer. He seems to be doing well he was transferred over to the soft mechanical diet and he is enjoying that he has no difficulty with the eating he wants to eat more. He walked with the physical therapy all the way around the [place]. He said he could walk more. He has been passing flatus and he does not have any rectal bleeding. He is using the incentive spirometer to about 3000 mL capacity and is doing well with that his blood pressure is under good control with oral management. His pain control is also reasonable and now that he is tolerating oral intake I will switch him over to oral pain medication. The wound was irrigated and appears to be healing normally there is no external drainage. Abdominal binder is in place around the dressing. He has no other complaints. He is inquiring about the result of the pathology which is not back yet it is known that he has adenocarcinoma of the rectosigmoid junction. Him and his son has question about follow-up after discharge and cancer treatment center and the referral will be made after pathology result is available. The last blood sugar was 109 seen good control. 03/15/2025 postop day 4 morning rounds. This patient is status post colectomy and coloproctostomy for cancer. The patient is getting out of bed and walking around in the hallways. He is saying that he has some postnasal drainage he has been asking for fluconazole that he was given to him. Passing flatus and did not have any bowel movement yet. Exam Vital Signs Temp Pulse Resp BP Pulse Ox O2 Del Method O2 Flow Rate 96.7 F L 62 17 124/69 97 Room Air 3 07/14/24 04:00 07/14/24 04:00 07/14/24 04:00 07/14/24 04:00 07/14/24 04:00 07/14/24 04:00 07/11/24 11:38 Narrative Exam Patient seem to be better today he appears to be stronger and is ambulating in the hallways and in the room. Lungs are clear abdomen is nondistended and there is generally no tenderness except for the wound tenderness. There is no peritoneal tenderness anywhere. Extremities are unremarkable. Assessment & Plan Diagnosis (1) Rectosigmoid cancer: Status: Acute (2) Obesity (BMI 30-39.9): Status: Chronic Plan Continue current management to get out of the bed and ambulate more we have advance diet to soft diet we will stay with that at this time. Procedures Procedure Date 07/10/24 Procedures Exploratory laparotomy sigmoid colectomy and coloproctostomy and umbilical hernia repair on July 10, 2024
[2024-07-14] MEDS: hydroCHLOROthiazide 12.5 MG CAPSULE 25 MG PO (08:20)
[2024-07-14] MEDS: VALSARTAN 80 MG TABLET 160 MG PO (08:20)
[2024-07-14] MEDS: PANTOPRAZOLE 40 MG TABLET PO ×2 (08:20→20:13)
[2024-07-14] MEDS: GABAPENTIN 100 MG CAPSULE 200 MG PO ×2 (08:21→20:13)
[2024-07-14] MEDS: ACYCLOVIR 200 MG CAPSULE 400 MG PO ×2 (08:22→20:14)
[2024-07-14] MEDS: FLUTICASONE NAS SPRAY 0.05% 16 GM BTL 1 SPRAY NASAL ×2 (08:24→20:13)
[2024-07-14] MEDS: TIMOLOL RIGHT EYE ×2 (08:24→20:14)
[2024-07-14] MEDS: BRIMONIDINE RIGHT EYE ×2 (08:24→20:14)
[2024-07-14] MEDS: prednisoLONE OP SUSP 1% 5 ML BTL 1 DROP RIGHT EYE ×2 (08:25→20:14)
[2024-07-14] MEDS: MAGNESIUM CITRATE 300 ML BTL PO (09:30)
--- NOTE | 2024-07-14 11:45 | PC.NURSE ---
Tylenol 650 mg given per md marquez order unable to save on jun. for initial temp of 104.0 oral temp
[2024-07-14] MEDS: CEFOXITIN 2 GM in SODIUM CHLORIDE 0.9% (Popper) 50 ML IV (12:45)
--- NOTE | 2024-07-14 12:51 | XR_ITS ---
Examination: AP chest single view TECHNIQUE: AP portable semiupright chest single view. Examination time: July 14, 2024 1334 hours INDICATIONS: Shortness of breath today. FINDINGS: Mild prominence of the ventricular No pneumonia or pulmonary edema The osseous structures are intact IMPRESSION: No active disease
--- NOTE | 2024-07-14 12:56 | PC.NURSE ---
Rapid response called due to uncontrolled temp after notifying dr Beckham current temp is 101.9
[2024-07-14] MEDS: KETOROLAC INJ 30 MG/ML VIAL IVP ×2 (13:07→19:27)
[2024-07-14] MEDS: ACETAMINOPHEN IVPB 1,000 MG/100 ML VIAL 250 MG IV (13:35)
--- NOTE | 2024-07-14 13:40 | ESCONSULT_ITS ---
<Statement entered by Myles Kendall MD - 07/16/24 07:35> Senior Resident Attestation: I supervised/discussed management plan with mechanical intern physician Dr. Diane, and was involved in the care of this patient. I personally saw and examined the patient and discussed the assessment and plan with the entire medicine team, including my attending. I agree with the assessment and plan as documented. Patient's care was discussed with attending physician, Dr. Drew. Myles Kendall MD PGY-2. HPI Data of Consult Requesting Physician: Samuel Beckham MD Admitting Provider: Samuel Beckham MD Attending Provider: Samuel Beckham MD Primary Care Provider: Samuel Beckham MD Consult Narrative History of present illness: Mr. Mock is a 54-year-old male with past medical history of diabetes mellitus, hyperlipidemia, hypertension, constipation, GERD, BPH who was admitted to [facility] 07/09/2024 for exploratory laparotomy sigmoid resection and coloproctostomy. 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 Patient had a colonoscopy done outpatient and proximal margin was marked for resection. Patient is status post colectomy and coloproctostomy day 4. Patient was found to have a fever of 104, sweating, rapid response was called earlier this morning by the patient and internal medicine team was consulted. Patient's fever around 1.9, patient's heart rate within normal limits, patient saturating well on room air otherwise. Patient currently complains of some postop pain but otherwise has no current complaints. CBC done today remarkable for WBC count of 12,000, hemoglobin 12.7 and platelets are within normal limits CMP is relatively normal, total bilirubin is 1.4 AST 47, blood cultures ordered and patient started on IV Zosyn. cc:: cc: Samuel Beckham MD Review of Systems Review of Systems Systems Reviewed: All systems reviewed, normal except as documented Past Medical History Past Medical History NEUROLOGIC: Negative Neurological Disorders or Seizures CARDIAC: Positive Hypercholesterolemia and Hypertension; Negative Cardiac Disorders or Congestive Heart Failure RESPIRATORY: Negative Chronic Obstructive Pulmonary Disease (COPD) or Asthma GASTROINTESTINAL: Positive Obesity; Negative Gastrointestinal Disorders GENITOURINARY: Negative Genitourinary Disorders or Renal Disease REPRODUCTIVE: Negative Breast Cancer MUSCULOSKELETAL: Negative Musculoskeletal Disorders ENDOCRINE: Positive Endocrine Disorders (diabetes); Negative Diabetes Mellitus Type 1 or Diabetes Mellitus Type 2 HEMATOLOGIC: Negative Blood Disorders or Sickle Cell Disease OTHER HISTORY: Negative Autoimmune Disease, Blood Transfusions, Anesthesia Reactions, Clostridium Difficile or Breast Cancer Family History FAMILY HISTORY: Positive Family Cardiac Disorders (hypertension mother) Surgical History SURGICAL: Positive Eye Surgery; Negative Cardiac Surgery, Endocrine Surgery, Abdominal Surgery, Nephrectomy, Joint Replacement, Neurologic Surgery or Mastectomy Social History SMOKING STATUS: Never smoker Exam Vital Signs Temp Pulse Resp BP Pulse Ox O2 Del Method O2 Flow Rate 101.9 F H 91 18 152/96 H 93 L Room Air 3 07/14/24 13:07 07/14/24 11:35 07/14/24 11:35 07/14/24 11:35 07/14/24 11:35 07/14/24 11:35 07/11/24 11:38 Narrative Exam General: Awake and in no acute distress. Conversational and non-toxic appearing. HEENT: Normocephalic, atraumatic, mucous membranes moist. Heart: Regular rate and rhythm, no murmurs. Lungs: Clear to auscultation with no wheezing or crackles. Abdomen: Soft, nondistended, nontender, positive bowel sounds. ?No guarding or rebound tenderness. surgical site and dressing intact and clean Neurologic: Alert and oriented x3, no gross neurological deficit, and patient able to move all 4 extremities. Extremities: No edema. Skin: No rash or ecchymoses. Wound dressing intact, no discharge noted. Results Labs 07/15/24 04:38 07/15/24 04:38 Quality Measures Quality Measures VTE prophylaxis Medications Home Medications and Allergies Home Medications ?Medication ?Instructions ?Recorded ?Confirmed ?Type valsartan 160 1 tab PO QDAY 04/26/2307/10 History mg-hydrochlorothiazide 12.5 mg tablet tamsulosin 0.4 mg capsule 0.4 mg PO QHS 06/20/2407/09 History acyclovir 400 mg tablet 400 mg PO BID 07/08/2407/09 History amlodipine 5 mg tablet 5 mg PO QDAY 07/08/24 History atorvastatin 20 mg tablet 20 mg PO HS 07/08/24 5 History empagliflozin 12.5 mg-metformin 1 tab PO QDAY 07/08/24 07/09/24 History 500 mg tablet (Synjardy) bisacodyl 5 mg tablet,delayed 5 mg PO TID PRN constipa tion 07/09/24 07/10/24 History release brimonidine 0.2 %-timolol 0.5 % 1 drp ophthalmic (eye) BID 07/09/24 07/09/24 History eye drops latanoprost 0.005 % eye drops 1 drp ophthalmic (eye) H S 07/09/24 07/09/24 History omeprazole 20 mg capsule,delayed 20 mg PO .h12 5 07/09/24 History release peg 3350-electrolytes 236 240 ml PO ONCE PM prior surg flavia 07/09/24 07/10/24 History gram-22.74 gram-6.74 gram-5.86 gram solution Held on 07/09/24. Instructions: Doctor's Order prednisolone acetate 1 % eye 1 drp ophthalmic (eye) Q1 2H 07/09/24 07/09/24 History drops,suspension valsartan 160 1 tab PO DAILY 07/09/24 0406/03 History mg-hydrochlorothiazide 25 mg tablet Allergies Allergy/AdvReac Type Severity Reaction Status Date / Time No Known Allergies Allergy Verified 07/08/24 09:59 Visit Medications Acetaminophen (Acetaminophen 325 Mg Tablet) 650 mg PO Q6HR PRN PRN Reason: FEVER >101 Stop: 08/13/24 11:27 Hydrocodone Bitart/Acetaminophen (Hydrocodone/Apap 10/325 Tab) 1 tab PO Q4HR PRN PRN Reason: PAIN Stop: 07/18/24 19:38 Last Admin: 07/13/24 23:02 Dose: 1 tab Acyclovir (Acyclovir 200 Mg Capsule) 400 mg PO BID [facility] Stop: 07/22/24 13:06 Last Admin: 07/14/24 08:22 Dose: 400 mg 0.2% Brimonidine-0.5 (% Tomolol Eye Drops) 0 ea RIGHT EYE BID [facility] Stop: 08/08/24 20:59 Last Admin: 07/14/24 08:24 Dose: 1 drops Fluticasone Propionate (Fluticasone Wenceslao Douglas 0.05% 16 Gm Btl) 1 spray NASAL BID [facility] Stop: 08/10/24 08:59 Last Admin: 07/14/24 08:24 Dose: 1 sprays Gabapentin (Gabapentin 100 Mg Capsule) 200 mg PO BID [facility] Stop: 08/09/24 20:59 Last Admin: 07/14/24 08:21 Dose: 200 mg Hydrochlorothiazide (Hydrochlorothiazide 12.5 Mg Capsule) 25 mg PO QDAY [facility] Stop: 08/10/24 08:59 Last Admin: 07/14/24 08:20 Dose: 25 mg Sodium Chloride (Ns) 1,000 mls @ 80 mls/hr IV .[id number] [facility] Stop: 08/10/24 06:23 Last Admin: 07/14/24 05:29 Dose: 80 mls/hr Piperacillin/Tazobactam/Dextrose (Zosyn) 3.375 gm in 50 mls @ 12.5 mls/hr IV Q8HR [facility] Stop: 07/21/24 21:59 Piperacillin/Tazobactam/Dextrose (Zosyn) 3.375 gm in 50 mls @ 100 mls/hr IV X1 ONE Stop: 07/14/24 13:59 Acetaminophen (Ofirmev Inj) 1,000 mg in 100 mls @ 250 mls/hr IV X1 ONE Stop: 07/14/24 13:53 Ketorolac Tromethamine (Ketorolac Inj 30 Mg/Ml Vial) 30 mg IVP Q6HR [facility] Stop: 07/15/24 17:59 Last Admin: 07/14/24 13:07 Dose: 30 mg Latanoprost (Latanoprost Op [place] 0.005% 2.5 Ml Btl) 1 drop RIGHT EYE HS [facility] Stop: 08/09/24 20:59 Last Admin: 07/13/24 20:14 Dose: 1 drop Magnesium Citrate (Magnesium Citrate 300 Ml Btl) 300 ml PO X1 PRN PRN Reason: constipation Stop: 08/12/24 19:32 Last Admin: 07/14/24 09:30 Dose: 300 ml Home Med Unavailable In Pharmacy. If Available, Please Bring To Pharmacy. If Not On Hand W 1 tab PO QDAY [facility] Stop: 08/10/24 08:59 Last Admin: 07/14/24 10:43 Dose: Not Given Ondansetron HCl (Ondansetron Inj 2 Mg/Ml Inj 2 Ml) 4 mg IV Q6HR PRN; Protocol PRN Reason: NAUSEA OR VOMITING Stop: 08/09/24 15:32 Pantoprazole Sodium (Pantoprazole 40 Mg Tablet) 40 mg PO BID [facility]; Protocol Stop: 08/09/24 15:32 Last Admin: 07/14/24 08:20 Dose: 40 mg Prednisolone Acetate (Prednisolone Op Susp 1% 5 Ml Btl) 1 drop RIGHT EYE Q12HR [facility] Stop: 08/10/24 11:14 Last Admin: 07/14/24 08:25 Dose: 1 drop Valsartan (Valsartan 80 Mg Tablet) 160 mg PO QDAY [facility] Stop: 08/10/24 08:59 Last Admin: 07/14/24 08:20 Dose: 160 mg Discontinued Medications Acyclovir (Acyclovir 200 Mg Capsule) 400 mg PO BID [facility] Stop: 07/19/24 20:22 Last Admin: 07/10/24 08:31 Dose: Not Given Albuterol/Ipratropium (Albuterol/Ipratropium (Duoneb) Rt [place] 3 Ml Nebu) 3 ml INH Q4HRRT PRN PRN Reason: WHEEZING Stop: 07/10/24 10:26 Amlodipine Besylate (Amlodipine Besylate 5 Mg Tablet) 5 mg PO QDAY [facility] Stop: 08/09/24 05:59 Last Admin: 07/10/24 08:30 Dose: Not Given Atorvastatin Calcium (Atorvastatin Calcium 20 Mg Tablet) 20 mg PO [facility] Stop: 08/08/24 20:59 Last Admin: 07/09/24 21:14 Dose: 20 mg Valsartan 160 Mg- Hydrochlorothiazide 25mg Tablet 0 ea PO QDAY [facility] Stop: 08/09/24 05:59 Last Admin: 07/10/24 06:12 Dose: 1 tablet Fentanyl Citrate (Fentanyl Cit Inj 50 Mcg/Ml Amp 2ml) 25 mcg IV Q5M PRN PRN Reason: PAIN SCALE 1-3 (mild Stop: 07/10/24 10:26 Fentanyl Citrate (Fentanyl Cit Inj 50 Mcg/Ml Amp 2ml) 50 mcg IV Q5M PRN PRN Reason: PAIN SCALE 4-6 (Moderate Stop: 07/10/24 10:26 Hydromorphone HCl (Hydromorphone Inj 2 Mg/Ml Vial) 0.5 mg IV Q5M PRN PRN Reason: PAIN SCALE 7-10 (Severe Stop: 07/10/24 10:26 Last Admin: 07/10/24 14:48 Dose: 0.5 mg Hydromorphone HCl (Hydromorphone Inj 2 Mg/Ml Vial) 1 mg IVP Q4HR PRN PRN Reason: PAIN Stop: 07/15/24 15:32 Last Admin: 07/12/24 16:08 Dose: 1 mg Dextrose/Lactated Ringer's (D5-Lr) 1,000 mls @ 50 mls/hr IV .Q20H [facility] Stop: 08/08/24 14:14 Last Admin: 07/10/24 16:37 Dose: Not Given Acetaminophen (Ofirmev Inj) 1,000 mg in 100 mls @ 250 mls/hr IV Q6HR [facility] Stop: 07/11/24 12:23 Last Admin: 07/11/24 11:00 Dose: 250 mls/hr Sodium Chloride (Ns) 1,000 mls @ 80 mls/hr IV .[id number] ONE Stop: 07/11/24 04:02 Last Admin: 07/10/24 16:03 Dose: 80 mls/hr Cefoxitin Sodium 2 gm/ Sodium (Chloride) 50 mls @ 100 mls/hr IV X1 ONE Stop: 07/14/24 13:09 Acetaminophen (Ofirmev Inj) 1,000 mg in 100 mls @ 250 mls/hr IV Q6H [facility] Stop: 07/15/24 07:42 Insulin Human Lispro (Insulin Lispro (Admelog) 1 Unit/0.01 Ml Unit) 1 unit SC ACHS [facility] Stop: 08/08/24 20:59 Last Admin: 07/09/24 21:26 Dose: Not Given Insulin Human Lispro (Insulin Lispro (Admelog) 1 Unit/0.01 Ml Unit) 1 unit SC Q6HR [facility] Stop: 08/09/24 05:59 Last Admin: 07/10/24 12:17 Dose: Not Given Labetalol HCl (Labetalol Inj 5 Mg/Ml Vial 20 Ml) 5 mg IVP Q10MIN PRN PRN Reason: Blood Pressure - High Stop: 07/10/24 12:00 Latanoprost (Latanoprost Op [place] 0.005% 2.5 Ml Btl) 1 drop RIGHT EYE HS [facility] Stop: 08/08/24 20:59 Last Admin: 07/09/24 21:00 Dose: Not Given Non-Formulary Medication (Valsartan-Hydrochlorothiazide) 1 tab PO QDAY [facility] Stop: 08/10/24 08:59 Ondansetron HCl (Ondansetron Inj 2 Mg/Ml Inj 2 Ml) 4 mg IV Q4H PRN PRN Reason: NAUSEA Stop: 08/09/24 08:25 Prednisolone Acetate (Prednisolone Op Susp 1% 5 Ml Btl) 1 drop RIGHT EYE Q12H [facility] Stop: 08/08/24 20:59 Last Admin: 07/10/24 10:21 Dose: Not Given Prednisolone Acetate (Prednisolone Op Susp 1% 5 Ml Btl) 1 drop RIGHT EYE Q12H [facility] Stop: 08/09/24 15:32 Last Admin: 07/11/24 04:00 Dose: Not Given Tamsulosin HCl (Tamsulosin Hcl 0.4 Mg Capsule) 0.4 mg PO HS [facility] Stop: 08/08/24 20:59 Last Admin: 07/09/24 21:15 Dose: 0.4 mg Assessment & Plan Plan Mr. Mock is a 54-year-old male with past medical history of diabetes mellitus, hyperlipidemia, hypertension, constipation, GERD, BPH who was admitted to [facility] 07/09/2024 for exploratory laparotomy sigmoid resection and coloproctostomy. 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 Patient had a colonoscopy done outpatient and proximal margin was marked for resection. Patient is status post colectomy and coloproctostomy day 4. Patient was found to have a fever of 104, sweating, rapid response was called earlier this morning and internal medicine team was consulted. #Suspicion of sepsis #SIRS +2/4 #Rectosigmoid adenocarcinoma #Status post colectomy and coloproctostomy day 4 -Patient is status post colectomy and coloproctostomy day 4. Patient was found to have a fever of 104, sweating, rapid response was called earlier this morning by the patient and internal medicine team was consulted. -Patient's fever around noon was 101.9, patient's heart rate within normal limits, patient saturating well on room air otherwise. ---Patient currently complains of mild postop pain but otherwise has no current complaints. -CBC done today remarkable for WBC count of 12,000, hemoglobin 12.7 and platelets are within normal limits CMP is relatively normal, total bilirubin is 1.4 AST 47, blood cultures ordered and patient started on IV Zosyn. -Patient's wound has no significant drainage, has dressing intact and clean Plan: -IV Zosyn started 07/14 -Tylenol as needed for fevers -Follow-up blood culture -Follow CBC CMP in a.m. -Monitor vitals closely -Pain management with Gabapentin, Palmer and Toradol, as per surgery. -Will consider imaging if pt persistently develops fever and leukocytosis #Type 2 Diabetes mellitus -Patient's home Synjardy resumed. #Hypertension #Hyperlipidemia -Patient is on amlodipine 5 mg p.o. daily, valsartan 160 hydrochlorothiazide 12.5 at home -Pt is on atorvastatin 20 mg nightly at home Plan: -Patient's home on hydrochlorothiazide 25 mg p.o. daily, valsartan 160 mg p.o. daily, resumed by surgery. #GERD -Patient on Protonix 40mg PO twice daily #Hx. of corneal transplantation, right eye -resumed home Acyclovir Health Maintenance Disposition: Medsurg s/p surgery DVT Prophylaxis: SCD QSHIFT GI Prophylaxis: Pantoprozol-40 PO Qday Diet: carbohydrate consistent Lines: Peripheral lines Assessment and plan discussed with my senior resident Dr. Kendall & attending physician Dr. Dr. Diane (PGY-1)- Internal medicine resident Attending Provider Attestation/Addendum I attest that I was physically present for the evaluation, physical examination, lab and imaging review of the patient with the residents. I discussed the case with the residents and agree with the findings and plans of care as documented above. Patient is a 54 years old male with past medical history of hypertension, and rectosigmoid cancer who was initially admitted for exploratory laparotomy, sigmoid resection and coloproctostomy with general surgery.? Patient underwent surgery on 07/10/2024.? This afternoon, a rapid response was called after patient spiked a fever of 101.9 ?F.? Labs were drawn including CBC, CMP, lactate.? Chest x-ray was obtained.? CBC showed mild elevation in WBC from 10.0-12.0.? CMP showed lactate of 1.4, improving kidney function and electrolytes within normal limits.? Patient's bilirubin is improving.? AST level today is 47.? Started patient on IV Zosyn, cultures were obtained. .? Discussed with general surgery regarding patient's abdominal wound, stated that the abdominal wound had no drainage and appeared clean, patient also does not have abdominal tenderness, CT abdomen pelvis is not currently warranted. At bedside, patient appears in mild distress, noted to have some sweating.? Denies any abdominal pain, nausea, vomiting.? Denied any respiratory or urinary symptoms.? We will also obtain urinalysis Scott Drew MD
[2024-07-14 13:51] LABS: Lactate (Lactic Acid) 1.4 mMol/L (0.4-2.0)
[2024-07-14 13:55] LABS: Basophils # (Auto) 0.1 Thou/mm3 (0.0-0.2); Basophils % (Auto) 0 % (0-2.5); Eosinophils # (Auto) 0.2 Thou/mm3 (0.0-0.5); Eosinophils % (Auto) 2 % (0-10); Hematocrit 37.3 % (41.0-53.0); Hemoglobin 12.7 g/dL (13.5-16.0); Immature Granulocytes % (Auto) 0 % (0-0); Immature Granulocytes Auto 0.05 Thou/mm3 (0.00-0.00); Lymphocytes # (Auto) 1.4 Thou/mm3 (1.0-4.8); Lymphocytes % (Auto) 12 % (10-50); Mean Corpuscular Hemoglobin 31.3 pg (25.0-35.0); Mean Corpuscular Volume 92 fL (80-100); Monocytes # (Auto) 1.4 Thou/mm3 (0.0-0.8); Monocytes % (Auto) 11 % (0-12); Neutrophils # (Auto) 8.9 Thou/mm3 (1.8-7.7); Neutrophils % (Auto) 74 % (37-80); Nucleated Red Blood Cell % 0 /100 WBC (0); Platelet Count 240 Thou/mm3 (140-440); RDW Standard Deviation 43.2 fL (35.1-43.9); Red Blood Count 4.06 Miln/mm3 (4.50-5.90)
--- NOTE | 2024-07-14 14:00 | PC.NURSE ---
Patients temperature 98.4
[2024-07-14 14:17] LABS: Alanine Aminotransferase 44 U/L (10-49); Albumin, Serum 3.8 gm/dL (3.5-5.0); Albumin/Globulin Ratio 1.5 (1.2-2.2); Alkaline Phosphatase 80 U/L (46-116); Anion Gap 8 (7-16); Aspartate Amino Transferase 47 U/L (0-34); BUN/Creatinine Ratio 14 Ratio (12-20); Bilirubin,Total 1.4 mg/dL (0.3-1.2); Blood Urea Nitrogen 11 mg/dL (9-23); Calcium 8.7 mg/dL (8.3-10.6); Calcium (Corrected) 8.9 mg/dL (8.5-10.1); Carbon Dioxide 25.7 mMol/L (20.0-31.0); Chloride 103 mMol/L (98-107); Creatinine (Component) 0.8 mg/dL (0.6-1.3); Estimated Creatinine Clearance 148.9 mL/min (>60); Globulin 2.6 gm/dL (2.3-3.5); Glucose 140 mg/dL (74-106); Magnesium 1.7 mg/dL (1.6-2.6); Osmolality,Calculated 275 (275-295); Potassium 3.7 mMol/L (3.4-5.1); Sodium 137 mMol/L (136-145); Total Protein 6.4 gm/dL (5.7-8.2); eGFR > 60 See Note
[2024-07-14] MEDS: PIPER/TAZO 3.375 GM PREMIX 3.375 GM/50 ML BAG IV ×2 (15:15→22:09)
--- NOTE | 2024-07-14 16:32 | ESPR_ITS ---
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 He also has had multiple polyps. He had a recent colonoscopy on Sunday and the proximal margin was marked for resection. He will undergo exploratory laparotomy sigmoid resection and coloproctostomy. Risk benefits and alternatives were discussed in detail with the patient and the family and informed consent was obtained. He has a history of diabetes he also has history of corneal transplantation for the right eye. He also had an upper GI endoscopy that showed that he has gastritis. Patient will undergo CT scan of the chest abdomen and pelvis with contrast prior to surgery. Estimated length of stay about 5 to 7 days. July 11, 2024 postop day 1 This patient is status post colectomy and coloproctostomy. A CBC was done today is H&H is stable. Chemistry shows that he has reduced renal function he has a Parkinson catheter at this time that is draining well. He is using the incentive spirometer and it shows that he is able to take in about 2 L to 2-1/2 L of vital capacity. He has not been getting out of the bed yet. He has not much of abdominal or otherwise pain. He is still getting pain medication IV. Acetaminophen and Toradol is working very well for him along with occasional Dilaudid. The abdominal wound dressing is changed and wet and dry dressing is being carried out at this time. There are no other complaints other than common cold and nasal drainage. He requested Nasacort that he is using at home for allergies. Patient is encouraged to get out of the bed in the chair I will remove the Parkinson catheter at this time. He is passing flatus so we will start clear liquid diet. July 12, 2024 postop day 2 This patient is s/p colectomy and coloproctostomy. Repeat CBC and CMP are stable and improved. Patient is tolerating full liquid diet well and wants to eat more. His sugar is in reasonable control. His pain is managed by IV narcotics and toradol. The wound dressing was changed and the wound has minimal drainage. The bp is in good control. Patient was restarted on Acyclovir for his eye. Patient is getting out of the bed to the bathroom. He had no bowel movement but is passing significant amount of flatus and he does not have any rectal bleeding. The physical therapy is requested to help him ambulate in the hallways. July 13, 2024 postop day 3 This patient is status post colectomy and coloproctostomy for cancer. He seems to be doing well he was transferred over to the soft mechanical diet and he is enjoying that he has no difficulty with the eating he wants to eat more. He walked with the physical therapy all the way around the [place] block. He said he could walk more. He has been passing flatus and he does not have any rectal bleeding. He is using the incentive spirometer to about 3000 mL capacity and is doing well with that his blood pressure is under good control with oral management. His pain control is also reasonable and now that he is tolerating oral intake I will switch him over to oral pain medication. The wound was irrigated and appears to be healing normally there is no external drainage. Abdominal binder is in place around the dressing. He has no other complaints. He is inquiring about the result of the pathology which is not back yet it is known that he has adenocarcinoma of the rectosigmoid junction. Him and his son has question about follow-up after discharge and cancer treatment center and the referral will be made after pathology result is available. The last blood sugar was 109 seen good control. 07/14/2024 postop day 4 afternoon rounds. This patient is status post colectomy and coloproctostomy for cancer. The patient is getting out of bed and walking around in the hallways. He has made 3 rounds around the block. He had a fever of 104 and he was having sweating with that the vital signs were normal. The blood culture was drawn the rapid response was called and patient was seen by the hospitalist service. The case was discussed with the responding resident physician. Repeat's white cell count is at 12,000 which is not much different he is H&H is stable. The patient denies having any abdominal pain. He had a solid bowel movement in he said a lot came out. There is no bleeding with the bowel movement. Case was discussed there is no need for CT scan with contrast because we already know that he had a surgery in the pelvis and the CT will say there is a collection of fluid which is expected. Also I do not want him to have any IV contrast because last time he had a CT scan with contrast tomorrow staging purposes about 5 days ago he is a creatinine went up he also has history of calcification of the left anterior descending artery as seen on the CAT scan and also he is hypertensive with cardiac hypertrophy. Will order the CT scan if it is absolutely necessary. At this time in the afternoon change his dressing he has no abdominal tenderness there is no infection in the wound there is no drainage and it is likely that the fever he had is of viral origin. The chest x-ray was done and that chest x- ray was normal. Will continue to observe him also will advance his diet to regular food. Exam Vital Signs Temp Pulse Resp BP Pulse Ox O2 Del Method O2 Flow Rate 97.4 F 74 18 133/83 H 97 Room Air 3 07/14/24 15:31 07/14/24 15:07/14/24 15:07/14/24 15:34 07/14/24 15:07/14/24 15:07/11/24 11:38 Narrative Exam The wound dressing is changed irrigated the wound there is no drainage from the wound there is no tenderness around the wound there is no hyperemia the granulation tissue is beginning to form without any infection in the wound. All 4 quadrants of the abdomen he has no tenderness including the both lower quadrants and bowel tones are present. Lung sounds are good bilaterally without any rales or rhonchi. The chest x-ray was done and it was normal. Extremities are normal. There is no infection where the IVs are started. Results Results: Laboratory Laboratory results: results reviewed Assessment & Plan Diagnosis (1) Fever of unknown origin: Status: Acute (2) Viral syndrome: Status: Acute (3) Rectosigmoid cancer: Status: Acute (4) Status post colectomy: Status: Acute Plan Advance diet to regular diet. Check back on the blood culture. Reduce IV fluid. Discharge planning when the fever is resolved and patient has become more active. Procedures Procedure Date 07/10/24 Procedures Exploratory laparotomy sigmoid colectomy and coloproctostomy and umbilical hernia repair on July 10, 2024
[2024-07-14] MEDS: LATANOPROST OP SOL 0.005% 2.5 ML BTL 1 DROP RIGHT EYE (20:14)
[2024-07-15] VITALS (12 sets, daily range): BP systolic 112–151; BP diastolic 64–83; PULSE 80–94; RESP 18–24; TEMP 36.1–37.4; O2SAT 93–97
[2024-07-15] MEDS: KETOROLAC INJ 30 MG/ML VIAL IVP ×3 (01:03→12:09)
[2024-07-15 05:24] LABS: Basophils % (Auto) 0 % (0-2.5); Eosinophils # (Auto) 0.2 Thou/mm3 (0.0-0.5); Eosinophils % (Auto) 1 % (0-10); Hematocrit 37.1 % (41.0-53.0); Hemoglobin 12.6 g/dL (13.5-16.0); Immature Granulocytes % (Auto) 0 % (0-0); Immature Granulocytes Auto 0.05 Thou/mm3 (0.00-0.00); Lymphocytes % (Auto) 8 % (10-50); Mean Corpuscular Hemoglobin 30.9 pg (25.0-35.0); Mean Corpuscular Volume 91 fL (80-100); Monocytes # (Auto) 1.4 Thou/mm3 (0.0-0.8); Monocytes % (Auto) 10 % (0-12); Neutrophils # (Auto) 10.6 Thou/mm3 (1.8-7.7); Neutrophils % (Auto) 80 % (37-80); Nucleated Red Blood Cell % 0 /100 WBC (0); Platelet Count 236 Thou/mm3 (140-440); RDW Standard Deviation 42.5 fL (35.1-43.9); Red Blood Count 4.08 Miln/mm3 (4.50-5.90); White Blood Count 13.3 Thou/mm3 (3.8-10.6)
[2024-07-15 05:57] LABS: Alanine Aminotransferase 53 U/L (10-49); Albumin, Serum 3.8 gm/dL (3.5-5.0); Albumin/Globulin Ratio 1.5 (1.2-2.2); Alkaline Phosphatase 90 U/L (46-116); Anion Gap 10 (7-16); Aspartate Amino Transferase 46 U/L (0-34); BUN/Creatinine Ratio 13 Ratio (12-20); Bilirubin,Total 1.3 mg/dL (0.3-1.2); Blood Urea Nitrogen 13 mg/dL (9-23); Calcium 9.1 mg/dL (8.3-10.6); Calcium (Corrected) 9.3 mg/dL (8.5-10.1); Carbon Dioxide 26.1 mMol/L (20.0-31.0); Chloride 102 mMol/L (98-107); Estimated Creatinine Clearance 119.2 mL/min (>60); Globulin 2.6 gm/dL (2.3-3.5); Glucose 121 mg/dL (74-106); Osmolality,Calculated 276 (275-295); Potassium 3.5 mMol/L (3.4-5.1); Sodium 138 mMol/L (136-145); Total Protein 6.4 gm/dL (5.7-8.2); eGFR > 60 See Note
[2024-07-15] MEDS: PIPER/TAZO 3.375 GM PREMIX 3.375 GM/50 ML BAG IV ×3 (06:07→21:21)
[2024-07-15] MEDS: prednisoLONE OP SUSP 1% 5 ML BTL 1 DROP RIGHT EYE ×2 (08:38→21:20)
[2024-07-15] MEDS: ACYCLOVIR 200 MG CAPSULE 400 MG PO ×2 (08:38→21:20)
[2024-07-15] MEDS: TIMOLOL RIGHT EYE ×2 (08:38→21:21)
[2024-07-15] MEDS: BRIMONIDINE RIGHT EYE ×2 (08:38→21:21)
[2024-07-15] MEDS: hydroCHLOROthiazide 12.5 MG CAPSULE 25 MG PO (08:39)
[2024-07-15] MEDS: PANTOPRAZOLE 40 MG TABLET PO ×2 (08:40→21:27)
[2024-07-15] MEDS: VALSARTAN 80 MG TABLET 160 MG PO (08:40)
[2024-07-15] MEDS: GABAPENTIN 100 MG CAPSULE 200 MG PO ×2 (08:40→21:31)
[2024-07-15] MEDS: SODIUM CHLORIDE 0.9% 1000 ML 1,000 ML 80 ML IV (13:14)
--- NOTE | 2024-07-15 14:02 | ESPR_ITS ---
<Statement entered by Mauro Lyn MD - 07/16/24 08:18> Patient tolerating diet well. Patient denies any active pain. Patient interested in advancing diet, will refer to surgery recommendations. Case discussed with team. Mauro Lyn MD PGY3 Documentation for date of: 07/15/24 Subjective Subjective Interval history: No acute overnight events reported. Pt is seen and exmained at bedside this morning. Pt denies any abdominal pain, has remained afebrile overnight. Pt complains of 2 loose bloody bowel movements. Pt denies SOB, Diziness or any other symptoms. vitals are stable with BP 125/80 and labs are significant for wbc 13.3, T lacey is 1.3 (down trending) and AST 46 and ALT 53. Exam Vital Signs Temp Pulse Resp BP Pulse Ox O2 Del Method O2 Flow Rate 97.8 F 92 18 125/80 97 Room Air 3 07/15/24 08:00 07/15/24 08:40 07/15/24 08:00 07/15/24 08:40 07/15/24 08:00 07/15/24 08:00 07/11/24 11:38 Narrative Exam General: Awake and in no acute distress. Conversational and non-toxic appearing. HEENT: Normocephalic, atraumatic, mucous membranes moist. Heart: Regular rate and rhythm, no murmurs. Lungs: Clear to auscultation with no wheezing or crackles. Abdomen: Soft, nondistended, nontender, positive bowel sounds. ?No guarding or rebound tenderness. surgical site and dressing intact and clean Neurologic: Alert and oriented x3, no gross neurological deficit, and patient able to move all 4 extremities. Extremities: No edema. Skin: No rash or ecchymoses. Wound dressing intact, no discharge noted. Objective Labs 07/16/24 04:59 07/16/24 04:59 Labs: Laboratory Results - last 24 hr 07/14/24 07/15/24 13:28 04:38 WBC 13.3 H RBC 4.08 L Hgb 12.6 L Hct 37.1 L MCV 91 MCH 30.9 MCHC 34.0 RDW Std Deviation 42.5 Plt Count 236 Neut % (Auto) 80 Lymph % (Auto) 8 L [place] % (Auto) 10 Eos % (Auto) 1 Baso % (Auto) 0 Neut # (Auto) 10.6 H Lymph # (Auto) 1.0 [place] # (Auto) 1.4 H Eos # (Auto) 0.2 Baso # (Auto) 0.0 Immature Gran # (Auto) 0.05 H Absolute Nucleated RBC 0.00 Immature Gran % 0 Nucleated RBC % 0 Sodium 137 138 Potassium 3.7 3.5 Chloride 103 102 Carbon Dioxide 25.7 26.1 Anion Gap 8 10 BUN 11 13 Creatinine 0.8 1.0 Estim Creat Clear Calc 148.9 119.2 eGFR > 60 > 60 BUN/Creatinine Ratio 14 13 Glucose 140 H 121 H Calculated Osmolality 275 276 Calcium 8.7 9.1 Corrected Calcium 8.9 9.3 Magnesium 1.7 Total Bilirubin 1.4 H 1.3 H AST 47 H 46 H ALT 44 53 H Alkaline Phosphatase 80 D 90 Total Protein 6.4 6.4 Albumin 3.8 3.8 Globulin 2.6 2.6 Albumin/Globulin Ratio 1.5 1.5 Quality Measures Quality Measures VTE prophylaxis Assessment & Plan Assessment Current Active Medications: Generic Name Dose Route Start Last Admin Trade Name Freq PRN Reason Stop Dose Admin Acetaminophen 650 mg 07/14/24 11:28 Acetaminophen 325 Mg Tablet PO 08/13/24 11:27 Q6HR PRN FEVER >101 Hydrocodone Bitart/Acetaminophen 1 tab 07/13/24 19:39 07/13/24 23:02 Hydrocodone/Apap 10/325 Tab PO 07/18/24 19:38 1 tab Q4HR PRN Administration PAIN Acyclovir 400 mg 07/12/24 21:00 07/15/24 08:38 Acyclovir 200 Mg Capsule PO 07/22/24 13:06 400 mg BID BOOKER Administration 0.2% Brimonidine-0.5 0 ea 07/09/24 21:00 07/15/24 08:38 % Tomolol Eye Drops RIGHT EYE 08/08/24 20:59 1 drops BID BOOKER Administration Fluticasone Propionate 1 spray 07/11/24 09:00 07/15/24 09:24 Fluticasone Wenceslao [place] 0.05% 16 Gm Btl NASAL 08/10/24 08:59 Not Given BID BOOKER Gabapentin 200 mg 07/10/24 21:00 07/15/24 08:40 Gabapentin 100 Mg Capsule PO 08/09/24 20:59 200 mg BID BOOKER Administration Hydrochlorothiazide 25 mg 07/11/24 09:00 07/15/24 08:39 Hydrochlorothiazide 12.5 Mg Capsule PO 08/10/24 08:59 25 mg QDAY BOOKER Administration Sodium Chloride 1,000 mls @ 80 mls/hr 07/11/24 06:24 07/15/24 13:14 Ns IV 08/10/24 06:23 80 mls/hr .[id number] BOOKER Administration Piperacillin/Tazobactam/Dextrose 3.375 gm in 50 mls @ 12.5 mls/hr 07/14/24 22:00 07/15/24 13:14 Zosyn IV 07/21/24 21:59 12.5 mls/hr Q8HR BOOKER Administration Ketorolac Tromethamine 30 mg 07/10/24 18:00 07/15/24 12:09 Ketorolac Inj 30 Mg/Ml Vial IVP 07/15/24 17:59 30 mg Q6HR BOOKER Administration Latanoprost 1 drop 07/10/24 21:00 07/14/24 20:14 Latanoprost Op [place] 0.005% 2.5 Ml Btl RIGHT EYE 08/09/24 20:59 1 drop HS BOOKER Administration Magnesium Citrate 300 ml 07/13/24 19:33 07/14/24 09:30 Magnesium Citrate 300 Ml Btl PO 08/12/24 19:32 300 ml X1 PRN Administration constipation Home Med Unavailable 1 tab 07/11/24 09:00 07/15/24 08:41 In Pharmacy. If PO 08/10/24 08:59 Not Given Available, Please QDAY BOOKER Bring To Pharmacy. If Not On Hand W Ondansetron HCl 4 mg 07/10/24 15:33 Ondansetron Inj 2 Mg/Ml Inj 2 Ml IV 08/09/24 15:32 Q6HR PRN NAUSEA OR VOMITING Protocol Pantoprazole Sodium 40 mg 07/10/24 15:33 07/15/24 08:40 Pantoprazole 40 Mg Tablet PO 08/09/24 15:32 40 mg BID BOOKER Administration Protocol Prednisolone Acetate 1 drop 07/11/24 11:15 07/15/24 08:38 Prednisolone Op Susp 1% 5 Ml Btl RIGHT EYE 08/10/24 11:14 1 drop Q12HR BOOKER Administration Valsartan 160 mg 07/11/24 09:00 07/15/24 08:40 Valsartan 80 Mg Tablet PO 08/10/24 08:59 160 mg QDAY BOOKER Administration Plan Mr. Mock is a 54-year-old male with past medical history of diabetes mellitus, hyperlipidemia, hypertension, constipation, GERD, BPH who was admitted to [facility], [place] 07/09/2024 for exploratory laparotomy sigmoid resection and coloproctostomy. 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 Patient had a colonoscopy done outpatient and proximal margin was marked for resection. Patient is status post colectomy and coloproctostomy day 4. Patient was found to have a fever of 104, sweating, rapid response was called earlier this morning and internal medicine team was consulted. #Suspicion of sepsis #SIRS +2/4 #Rectosigmoid adenocarcinoma #Status post colectomy and coloproctostomy day 4 -Patient is status post colectomy and coloproctostomy day 4. Patient was found to have a fever of 104, sweating, rapid response was called earlier this morning by the patient and internal medicine team was consulted. -Patient's fever around noon was 101.9, patient's heart rate within normal limits, patient saturating well on room air otherwise. ---Patient currently complains of mild postop pain but otherwise has no current complaints. -CBC done today remarkable for WBC count of 12,000, hemoglobin 12.7 and platelets are within normal limits CMP is relatively normal, total bilirubin is 1.4 AST 47, blood cultures ordered and patient started on IV Zosyn. -Patient's wound has no significant drainage, has dressing intact and clean Plan: -IV Zosyn started 07/14 -Tylenol as needed for fevers -Follow-up blood culture -Follow CBC CMP in a.m. -Monitor vitals closely -Pain management with Gabapentin, Buena and Toradol, as per surgery. -Will consider imaging if pt persistently develops fever and leukocytosis #Type 2 Diabetes mellitus -Patient's home Synjardy resumed. #Hypertension #Hyperlipidemia -Patient is on amlodipine 5 mg p.o. daily, valsartan 160 hydrochlorothiazide 12.5 at home -Pt is on atorvastatin 20 mg nightly at home Plan: -Patient's home on hydrochlorothiazide 25 mg p.o. daily, valsartan 160 mg p.o. daily, resumed by surgery. #GERD -Patient on Protonix 40mg PO twice daily #Hx. of corneal transplantation, right eye -resumed home Acyclovir Health Maintenance Disposition: Medsurg s/p surgery DVT Prophylaxis: SCD QSHIFT GI Prophylaxis: Pantoprozol-40 PO Qday Diet: carbohydrate consistent Lines: Peripheral lines Assessment and plan discussed with my senior resident Dr. Lyn & attending physician Dr. Rajendra Diane (PGY-1)- Internal medicine resident Attending Provider Attestation/Addendum I attest that I was physically present for the evaluation, physical examination, lab and imaging review of the patient with the residents. I discussed the case with the residents and agree with the findings and plans of care as documented above. At bedside today, patient appears comfortable. Denies any complaints. Has been afebrile since yesterday. Labs results show uptrending WBC from 12-13.3 today. Noted to have slight elevation on AST and ALT as well. Continues to be on IV Zosyn, blood cultures have been negative for 24 hours. We will follow the patient with general surgery. Pending culture results. Scott Drew MD
--- NOTE | 2024-07-15 16:22 | PC.PT ---
Patient will be dc from PT services secondary to patient is I with transfers and ambulation without AD. Patient is safe to ambulate in the hallway.
--- NOTE | 2024-07-15 17:41 | ESPR_ITS ---
Documentation for date of: 07/15/24 Subjective Subjective Brief History: This 54-year-old gentleman has had rectal bleeding and he was evaluated and found to have 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 He also has had multiple polyps. He had a recent colonoscopy on Sunday and the proximal margin was marked for resection. He will undergo exploratory laparotomy sigmoid resection and coloproctostomy. Risk benefits and alternatives were discussed in detail with the patient and the family and informed consent was obtained. He has a history of diabetes he also has history of corneal transplantation for the right eye. He also had an upper GI endoscopy that showed that he has gastritis. Patient will undergo CT scan of the chest abdomen and pelvis with contrast prior to surgery. Estimated length of stay about 5 to 7 days. July 11, 2024 postop day 1 This patient is status post colectomy and coloproctostomy. A CBC was done today is H&H is stable. Chemistry shows that he has reduced renal function he has a Parkinson catheter at this time that is draining well. He is using the incentive spirometer and it shows that he is able to take in about 2 L to 2-1/2 L of vital capacity. He has not been getting out of the bed yet. He has not much of abdominal or otherwise pain. He is still getting pain medication IV. Acetaminophen and Toradol is working very well for him along with occasional Dilaudid. The abdominal wound dressing is changed and wet and dry dressing is being carried out at this time. There are no other complaints other than common cold and nasal drainage. He requested Nasacort that he is using at home for allergies. Patient is encouraged to get out of the bed in the chair I will remove the Parkinson catheter at this time. He is passing flatus so we will start clear liquid diet. July 12, 2024 postop day 2 This patient is s/p colectomy and coloproctostomy. Repeat CBC and CMP are stable and improved. Patient is tolerating full liquid diet well and wants to eat more. His sugar is in reasonable control. His pain is managed by IV narcotics and toradol. The wound dressing was changed and the wound has minimal drainage. The bp is in good control. Patient was restarted on Acyclovir for his eye. Patient is getting out of the bed to the bathroom. He had no bowel movement but is passing significant amount of flatus and he does not have any rectal bleeding. The physical therapy is requested to help him ambulate in the hallways. July 13, 2024 postop day 3 This patient is status post colectomy and coloproctostomy for cancer. He seems to be doing well he was transferred over to the soft mechanical diet and he is enjoying that he has no difficulty with the eating he wants to eat more. He walked with the physical therapy all the way around the [place] block. He said he could walk more. He has been passing flatus and he does not have any rectal bleeding. He is using the incentive spirometer to about 3000 mL capacity and is doing well with that his blood pressure is under good control with oral management. His pain control is also reasonable and now that he is tolerating oral intake I will switch him over to oral pain medication. The wound was irrigated and appears to be healing normally there is no external drainage. Abdominal binder is in place around the dressing. He has no other complaints. He is inquiring about the result of the pathology which is not back yet it is known that he has adenocarcinoma of the rectosigmoid junction. Him and his son has question about follow-up after discharge and cancer treatment center and the referral will be made after pathology result is available. The last blood sugar was 109 seen good control. 07/14/2024 postop day 4 afternoon rounds. This patient is status post colectomy and coloproctostomy for cancer. The patient is getting out of bed and walking around in the hallways. He has made 3 rounds around the block. He had a fever of 104 and he was having sweating with that the vital signs were normal. The blood culture was drawn the rapid response was called and patient was seen by the hospitalist service. The case was discussed with the responding resident physician. Repeat's white cell count is at 12,000 which is not much different he is H&H is stable. The patient denies having any abdominal pain. He had a solid bowel movement in he said a lot came out. There is no bleeding with the bowel movement. Case was discussed there is no need for CT scan with contrast because we already know that he had a surgery in the pelvis and the CT will say there is a collection of fluid which is expected. Also I do not want him to have any IV contrast because last time he had a CT scan with contrast tomorrow staging purposes about 5 days ago he is a creatinine went up he also has history of calcification of the left anterior descending artery as seen on the CAT scan and also he is hypertensive with cardiac hypertrophy. Will order the CT scan if it is absolutely necessary. At this time in the afternoon change his dressing he has no abdominal tenderness there is no infection in the wound there is no drainage and it is likely that the fever he had is of viral origin. The chest x-ray was done and that chest x- ray was normal. Will continue to observe him also will advance his diet to regular food. July 15, 2024 postop day 5 Patient is not having high-grade fever he is on Zosyn does not have symptoms. Wound dressing was changed there is minimal serosanguineous drainage. Bowel tones are present and he had 2 bowel movements a small amount of blood in the bowel movement but that is expected. The pathology report showed that out of 22 1 lymph node was positive. The tumor was invading the muscularis propria and the margins were clear of cancer. Donuts were intact and clear of any tumor. The pathologic findings were discussed with the patient. As long as he is having fever we will continue with antibiotic. Once he goes home then he is going to require home health care nurse visiting so that the wound care can be continued. After he heals up he will be referred to the cancer treatment center for consideration for adjuvant chemotherapy. Exam Vital Signs Temp Pulse Resp BP Pulse Ox O2 Del Method O2 Flow Rate 99.2 F 80 18 112/65 96 Room Air 3 07/15/24 12:00 07/15/24 14:55 07/15/24 14:55 07/15/24 12:07/15/24 14:55 07/15/24 12:00 07/11/24 11:38 Narrative Exam The abdomen is soft and nontender wound dressing is clean it is being changed by the nursing staff at this time there is no evidence of infection hyperemia or edema. He is getting a wet-to-dry dressing. Cardiopulmonary examination is normal extremities are unremarkable. Results Results: Laboratory Laboratory results: results reviewed Assessment & Plan Diagnosis (1) Rectosigmoid cancer: Status: Acute (2) Colorectal polyps: Status: Acute (3) Status post colectomy: Status: Acute Plan Advance diet to regular diet. Continue with IV antibiotics as long as patient has elevated WBC as well as fever. Continue to ambulate in the hallways with the assistance. Will have to make arrangement for home health care nurse to manage his wound dressing. Discharge planning in 1 to 3 days. Procedures Procedure Date 07/10/24 Procedures Exploratory laparotomy sigmoid colectomy and coloproctostomy and umbilical hernia repair on July 10, 2024
--- NOTE | 2024-07-15 19:23 | PC.CM ---
I received a referral from Dr. Beckham for daily wet to dry dressing changes at home for 1 week. I called the nurse and I let him know home health nurse will not be able to come out every day. An supervisor grips spoke to patient and he states he does not have anyone at home to be taught dressing changes. I let the nurse know home health is not an option if patient does not have a caregiver. I will follow up tomorrow.
[2024-07-15] MEDS: FLUTICASONE NAS SPRAY 0.05% 16 GM BTL 1 SPRAY NASAL (21:19)
[2024-07-16] VITALS (10 sets, daily range): BP systolic 105–127; BP diastolic 63–91; PULSE 75–97; RESP 12–28; TEMP 36.4–37.1; O2SAT 91–97
[2024-07-16] MEDS: PIPER/TAZO 3.375 GM PREMIX 3.375 GM/50 ML BAG IV ×3 (05:29→21:09)
[2024-07-16 05:50] LABS: Basophils % (Auto) 0 % (0-2.5); Eosinophils # (Auto) 0.3 Thou/mm3 (0.0-0.5); Eosinophils % (Auto) 2 % (0-10); Hematocrit 37.6 % (41.0-53.0); Hemoglobin 12.6 g/dL (13.5-16.0); Immature Granulocytes % (Auto) 1 % (0-0); Lymphocytes # (Auto) 1.5 Thou/mm3 (1.0-4.8); Lymphocytes % (Auto) 11 % (10-50); Mean Corpuscular HGB Conc 33.5 g/dl (31.0-37.0); Mean Corpuscular Hemoglobin 30.6 pg (25.0-35.0); Mean Corpuscular Volume 91 fL (80-100); Monocytes % (Auto) 7 % (0-12); Neutrophils # (Auto) 10.9 Thou/mm3 (1.8-7.7); Neutrophils % (Auto) 79 % (37-80); Nucleated Red Blood Cell % 0 /100 WBC (0); Platelet Count 268 Thou/mm3 (140-440); RDW Standard Deviation 43.4 fL (35.1-43.9); Red Blood Count 4.12 Miln/mm3 (4.50-5.90); White Blood Count 13.9 Thou/mm3 (3.8-10.6)
[2024-07-16 06:27] LABS: Alanine Aminotransferase 190 U/L (10-49); Albumin/Globulin Ratio 1.5 (1.2-2.2); Alkaline Phosphatase 139 U/L (46-116); Anion Gap 10 (7-16); Aspartate Amino Transferase 133 U/L (0-34); BUN/Creatinine Ratio 12 Ratio (12-20); Blood Urea Nitrogen 12 mg/dL (9-23); Calcium 8.9 mg/dL (8.3-10.6); Calcium (Corrected) 8.9 mg/dL (8.5-10.1); Carbon Dioxide 26.2 mMol/L (20.0-31.0); Chloride 101 mMol/L (98-107); Estimated Creatinine Clearance 119.2 mL/min (>60); Globulin 2.7 gm/dL (2.3-3.5); Glucose 146 mg/dL (74-106); Osmolality,Calculated 276 (275-295); Potassium 3.5 mMol/L (3.4-5.1); Sodium 137 mMol/L (136-145); Total Protein 6.7 gm/dL (5.7-8.2); eGFR > 60 See Note
[2024-07-16] MEDS: prednisoLONE OP SUSP 1% 5 ML BTL 1 DROP RIGHT EYE ×2 (09:04→20:09)
[2024-07-16] MEDS: BRIMONIDINE RIGHT EYE ×2 (09:04→20:10)
[2024-07-16] MEDS: TIMOLOL RIGHT EYE ×2 (09:04→20:10)
[2024-07-16] MEDS: FLUTICASONE NAS SPRAY 0.05% 16 GM BTL 1 SPRAY NASAL ×2 (09:06→20:08)
[2024-07-16] MEDS: ACYCLOVIR 200 MG CAPSULE 400 MG PO ×2 (09:06→20:09)
[2024-07-16] MEDS: VALSARTAN 80 MG TABLET 160 MG PO (09:07)
[2024-07-16] MEDS: PANTOPRAZOLE 40 MG TABLET PO ×2 (09:07→20:07)
[2024-07-16] MEDS: GABAPENTIN 100 MG CAPSULE 200 MG PO ×2 (09:07→20:07)
[2024-07-16] MEDS: hydroCHLOROthiazide 12.5 MG CAPSULE 25 MG PO (09:08)
[2024-07-16] MEDS: POTASSIUM CHLORIDE 20 mEq TABCR 40 MEQ PO (09:09)
--- NOTE | 2024-07-16 09:27 | PC.SS ---
SS follow up note; SS was contacted by Transfer Nurse Kanwal and informed SS that Dr Beckham ordered HH and patient would need wound change everyday, SS contacted patient's , Brittni and she informed SS that she is able to assist with wound changes, however will need to be shown once how to due it. SS contacted patient's nurse, Maryellen and informed her once she performs wound care if she could educate the patient's on how to due it and provide wound care supplies before patient discharges, Maryellen verbalized understanding.
--- NOTE | 2024-07-16 11:02 | PC.CM ---
Patient did not have a preference for home health agency so I sent to [facility].
--- NOTE | 2024-07-16 11:39 | PC.SS ---
SS follow up note; Patient is having High fevers, on IV ABX. patient will discharge home with when medically cleared.
[2024-07-16] MEDS: HYDROcodone/APAP 10/325 TAB PO ×2 (14:33→20:36)
[2024-07-16] MEDS: SODIUM CHLORIDE 0.9% 1000 ML 1,000 ML 80 ML IV (15:26)
--- NOTE | 2024-07-16 16:10 | ESPR_ITS ---
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 He also has had multiple polyps. He had a recent colonoscopy on Sunday and the proximal margin was marked for resection. He will undergo exploratory laparotomy sigmoid resection and coloproctostomy. Risk benefits and alternatives were discussed in detail with the patient and the family and informed consent was obtained. He has a history of diabetes he also has history of corneal transplantation for the right eye. He also had an upper GI endoscopy that showed that he has gastritis. Patient will undergo CT scan of the chest abdomen and pelvis with contrast prior to surgery. Estimated length of stay about 5 to 7 days. July 11, 2024 postop day 1 This patient is status post colectomy and coloproctostomy. A CBC was done today is H&H is stable. Chemistry shows that he has reduced renal function he has a Parkinson catheter at this time that is draining well. He is using the incentive spirometer and it shows that he is able to take in about 2 L to 2-1/2 L of vital capacity. He has not been getting out of the bed yet. He has not much of abdominal or otherwise pain. He is still getting pain medication IV. Acetaminophen and Toradol is working very well for him along with occasional Dilaudid. The abdominal wound dressing is changed and wet and dry dressing is being carried out at this time. There are no other complaints other than common cold and nasal drainage. He requested Nasacort that he is using at home for allergies. Patient is encouraged to get out of the bed in the chair I will remove the Parkinson catheter at this time. He is passing flatus so we will start clear liquid diet. July 12, 2024 postop day 2 This patient is s/p colectomy and coloproctostomy. Repeat CBC and CMP are stable and improved. Patient is tolerating full liquid diet well and wants to eat more. His sugar is in reasonable control. His pain is managed by IV narcotics and toradol. The wound dressing was changed and the wound has minimal drainage. The bp is in good control. Patient was restarted on Acyclovir for his eye. Patient is getting out of the bed to the bathroom. He had no bowel movement but is passing significant amount of flatus and he does not have any rectal bleeding. The physical therapy is requested to help him ambulate in the hallways. July 13, 2024 postop day 3 This patient is status post colectomy and coloproctostomy for cancer. He seems to be doing well he was transferred over to the soft mechanical diet and he is enjoying that he has no difficulty with the eating he wants to eat more. He walked with the physical therapy all the way around the [place] block. He said he could walk more. He has been passing flatus and he does not have any rectal bleeding. He is using the incentive spirometer to about 3000 mL capacity and is doing well with that his blood pressure is under good control with oral management. His pain control is also reasonable and now that he is tolerating oral intake I will switch him over to oral pain medication. The wound was irrigated and appears to be healing normally there is no external drainage. Abdominal binder is in place around the dressing. He has no other complaints. He is inquiring about the result of the pathology which is not back yet it is known that he has adenocarcinoma of the rectosigmoid junction. Him and his son has question about follow-up after discharge and cancer treatment center and the referral will be made after pathology result is available. The last blood sugar was 109 seen good control. 07/14/2024 postop day 4 afternoon rounds. This patient is status post colectomy and coloproctostomy for cancer. The patient is getting out of bed and walking around in the hallways. He has made 3 rounds around the block. He had a fever of 104 and he was having sweating with that the vital signs were normal. The blood culture was drawn the rapid response was called and patient was seen by the hospitalist service. The case was discussed with the responding resident physician. Repeat's white cell count is at 12,000 which is not much different he is H&H is stable. The patient denies having any abdominal pain. He had a solid bowel movement in he said a lot came out. There is no bleeding with the bowel movement. Case was discussed there is no need for CT scan with contrast because we already know that he had a surgery in the pelvis and the CT will say there is a collection of fluid which is expected. Also I do not want him to have any IV contrast because last time he had a CT scan with contrast tomorrow staging purposes about 5 days ago he is a creatinine went up he also has history of calcification of the left anterior descending artery as seen on the CAT scan and also he is hypertensive with cardiac hypertrophy. Will order the CT scan if it is absolutely necessary. At this time in the afternoon change his dressing he has no abdominal tenderness there is no infection in the wound there is no drainage and it is likely that the fever he had is of viral origin. The chest x-ray was done and that chest x- ray was normal. Will continue to observe him also will advance his diet to regular food. July 15, 2024 postop day 5 Patient is not having high-grade fever he is on Zosyn does not have symptoms. Wound dressing was changed there is minimal serosanguineous drainage. Bowel tones are present and he had 2 bowel movements a small amount of blood in the bowel movement but that is expected. The pathology report showed that out of 22 1 lymph node was positive. The tumor was invading the muscularis propria and the margins were clear of cancer. Donuts were intact and clear of any tumor. The pathologic findings were discussed with the patient. As long as he is having fever we will continue with antibiotic. Once he goes home then he is going to require home health care nurse visiting so that the wound care can be continued. After he heals up he will be referred to the cancer treatment center for consideration for adjuvant chemotherapy. July 16, 2024 postop day 6. Discussed with the hospitalist service sales consultant residential manager. Patient is not having high-grade fever may have been Zosyn. He can be discharged home. He is having regular bowel movements without much of bleeding or any other symptoms. He is tolerating a regular diet and is ambulating well this time that he may be discharged home on oral pain medication and oral antibiotics. Patient agrees he wants to go home. He has a wound that requires wet-to-dry dressing and his family is willing to learn and do his dressing until he comes back to the office. Exam Vital Signs Temp Pulse Resp BP Pulse Ox O2 Del Method O2 Flow Rate 98.4 F 85 28 H 105/63 91 L Room Air 3 07/16/24 12:07/16/24 12:07/16/24 12:07/16/24 12:07/16/24 12:07/16/24 08:07/11/24 11:38 Narrative Exam Patient looks better is ambulating and he is strong enough to move about in the bed and on the floor. He had 2 bowel movements overnight. It is small amount of blood but that was okay with it. The cardiopulmonary examination is normal abdomen is nontender nondistended except that he has some tenderness in the wound. Extremities are unremarkable. There is no drainage from the wound dressing was changed. Assessment & Plan Diagnosis (1) Rectosigmoid cancer: Status: Acute (2) Status post colectomy: Status: Acute (3) Obesity (BMI 30-39.9): Status: Chronic Procedures Procedure Date 07/10/24 Procedures Exploratory laparotomy sigmoid colectomy and coloproctostomy and umbilical hernia repair on July 10, 2024
--- NOTE | 2024-07-16 16:17 | ESPR_ITS ---
<Statement entered by Myles Kendall MD - 07/17/24 08:05> Senior Resident Attestation: I supervised/discussed management plan with general internal medicine physician physician Dr. Diane, and was involved in the care of this patient. I personally saw and examined the patient and discussed the assessment and plan with the entire medicine team, including my attending. I agree with the assessment and plan as documented. Patient reports no abdominal pain today and no other complaints. He have not had fever for more than 24 hours. Will recommend to continue Zosyn at this moment. Primary team is signing off from the case. Patient's care was discussed with attending physician, Dr. Drew. Myles Kendall MD PGY-2. Documentation for date of: 07/16/24 Subjective Subjective Interval history: No acute overnight events reported. Patient seen and examined at bedside this morning patient reports 2 bowel movements that were not bloody however in between patient states that sometimes he has a bloody bowel movement however he denies any shortness of breath dizziness abdominal pain or constipation. Patient's pain status post surgery is well-controlled. Significant labs include WBC 13.9, T. bili 2.0, AST33, AMU091. Patient denies any pain in the right upper quadrant surgeon Dr. Du is notified regarding the lab findings. Patient would need to follow-up outpatient with primary care physician for further surveillance and workup if needed. The hospitalist team recommends patient to be discharged on Augmentin for additional 5 days. Patient is hemodynamically stable and has remained afebrile for 2 midnights at this time hospitalist team will sign off. It was a pleasure taking care of this patient, thank you for the consult. Exam Vital Signs Temp Pulse Resp BP Pulse Ox O2 Del Method O2 Flow Rate 98.4 F 85 28 H 105/63 91 L Room Air 3 07/16/24 12:00 07/16/24 12:00 07/16/24 12:00 07/16/24 12:07/16/24 12:07/16/24 08:07/11/24 11:38 Narrative Exam General: Awake and in no acute distress. Conversational and non-toxic appearing. HEENT: Normocephalic, atraumatic, mucous membranes moist. Heart: Regular rate and rhythm, no murmurs. Lungs: Clear to auscultation with no wheezing or crackles. Abdomen: Soft, nondistended, nontender, positive bowel sounds. ?No guarding or rebound tenderness. surgical site and dressing intact and clean Neurologic: Alert and oriented x3, no gross neurological deficit, and patient able to move all 4 extremities. Extremities: No edema. Skin: No rash or ecchymoses. Wound dressing intact, no discharge noted. Objective Labs 07/17/24 04:20 07/17/24 04:20 Labs: Laboratory Results - last 24 hr 07/16/24 04:59 WBC 13.9 H RBC 4.12 L Hgb 12.6 L Hct 37.6 L MCV 91 MCH 30.6 MCHC 33.5 RDW Std Deviation 43.4 Plt Count 268 D Neut % (Auto) 79 Lymph % (Auto) 11 [place] % (Auto) 7 Eos % (Auto) 2 Baso % (Auto) 0 Neut # (Auto) 10.9 H Lymph # (Auto) 1.5 [place] # (Auto) 1.0 H Eos # (Auto) 0.3 Baso # (Auto) 0.0 Immature Gran # (Auto) 0.10 H Absolute Nucleated RBC 0.00 Immature Gran % 1 H Nucleated RBC % 0 Sodium 137 Potassium 3.5 Chloride 101 Carbon Dioxide 26.2 Anion Gap 10 BUN 12 Creatinine 1.0 Estim Creat Clear Calc 119.2 eGFR > 60 BUN/Creatinine Ratio 12 Glucose 146 H Calculated Osmolality 276 Calcium 8.9 Corrected Calcium 8.9 Total Bilirubin 2.0 H D AST 133 H ALT 190 H Alkaline Phosphatase 139 H D Total Protein 6.7 Albumin 4.0 Globulin 2.7 Albumin/Globulin Ratio 1.5 Quality Measures Quality Measures VTE prophylaxis Assessment & Plan Assessment Current Active Medications: Generic Name Dose Route Start Last Admin Trade Name Freq PRN Reason Stop Dose Admin Acetaminophen 650 mg 07/14/24 11:28 Acetaminophen 325 Mg Tablet PO 08/13/24 11:27 Q6HR PRN FEVER >101 Hydrocodone Bitart/Acetaminophen 1 tab 07/13/24 19:39 07/16/24 14:33 Hydrocodone/Apap 10/325 Tab PO 07/18/24 19:38 1 tab Q4HR PRN Administration PAIN Acyclovir 400 mg 07/12/24 21:00 07/16/24 09:06 Acyclovir 200 Mg Capsule PO 07/22/24 13:06 400 mg BID BOOKER Administration 0.2% Brimonidine-0.5 0 ea 07/09/24 21:00 07/16/24 09:04 % Tomolol Eye Drops RIGHT EYE 08/08/24 20:59 1 drops BID BOOKER Administration Fluticasone Propionate 1 spray 07/11/24 09:00 07/16/24 09:06 Fluticasone [place] 0.05% 16 Gm Btl NASAL 08/10/24 08:59 1 sprays BID BOOKER Administration Gabapentin 200 mg 07/10/24 21:00 07/16/24 09:07 Gabapentin 100 Mg Capsule PO 08/09/24 20:59 200 mg BID BOOKER Administration Hydrochlorothiazide 25 mg 07/11/24 09:00 07/16/24 09:08 Hydrochlorothiazide 12.5 Mg Capsule PO 08/10/24 08:59 25 mg QDAY BOOKER Administration Sodium Chloride 1,000 mls @ 80 mls/hr 07/11/24 06:24 07/16/24 15:26 Ns IV 08/10/24 06:23 80 mls/hr .[id number] BOOKER Administration Piperacillin/Tazobactam/Dextrose 3.375 gm in 50 mls @ 12.5 mls/hr 07/14/24 22:00 07/16/24 14:34 Zosyn IV 07/21/24 21:59 12.5 mls/hr Q8HR BOOKER Administration Latanoprost 1 drop 07/10/24 21:00 07/15/24 21:33 Latanoprost Op [place] 0.005% 2.5 Ml Btl RIGHT EYE 08/09/24 20:59 Not Given HS BOOKER Home Med Unavailable 1 tab 07/11/24 09:00 07/16/24 09:09 In Pharmacy. If PO 08/10/24 08:59 Not Given Available, Please QDAY BOOKER Bring To Pharmacy. If Not On Hand W Ondansetron HCl 4 mg 07/10/24 15:33 Ondansetron Inj 2 Mg/Ml Inj 2 Ml IV 08/09/24 15:32 Q6HR PRN NAUSEA OR VOMITING Protocol Pantoprazole Sodium 40 mg 07/10/24 15:33 07/16/24 09:07 Pantoprazole 40 Mg Tablet PO 08/09/24 15:32 40 mg BID BOOKER Administration Protocol Prednisolone Acetate 1 drop 07/11/24 11:15 07/16/24 09:04 Prednisolone Op Susp 1% 5 Ml Btl RIGHT EYE 08/10/24 11:14 1 drop Q12HR BOOKER Administration Valsartan 160 mg 07/11/24 09:00 07/16/24 09:07 Valsartan 80 Mg Tablet PO 08/10/24 08:59 160 mg QDAY BOOKER Administration Plan Mr. Mock is a 54-year-old male with past medical history of diabetes mellitus, hyperlipidemia, hypertension, constipation, GERD, BPH who was admitted to [facility] 07/09/2024 for exploratory laparotomy sigmoid resection and coloproctostomy. 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 Patient had a colonoscopy done outpatient and proximal margin was marked for resection. Patient is status post colectomy and coloproctostomy day 4. Patient was found to have a fever of 104, sweating, rapid response was called earlier this morning and internal medicine team was consulted. #Suspicion of sepsis #SIRS +2/4 #Rectosigmoid adenocarcinoma #Status post colectomy and coloproctostomy day 4 -Patient is status post colectomy and coloproctostomy day 4. Patient was found to have a fever of 104, sweating, rapid response was called earlier this morning by the patient and internal medicine team was consulted. -Patient's fever around noon was 101.9, patient's heart rate within normal limits, patient saturating well on room air otherwise. ---Patient currently complains of mild postop pain but otherwise has no current complaints. -CBC done today remarkable for WBC count of 12,000, hemoglobin 12.7 and platelets are within normal limits CMP is relatively normal, total bilirubin is 1.4 AST 47, blood cultures ordered and patient started on IV Zosyn. -Patient's wound has no significant drainage, has dressing intact and clean Plan: -IV Zosyn started 07/14 -Tylenol as needed for fevers -Follow-up blood culture -Follow CBC CMP in a.m. -Monitor vitals closely -Pain management with Gabapentin, [place] and Toradol, as per surgery. -Will consider imaging if pt persistently develops fever and leukocytosis #Type 2 Diabetes mellitus -Patient's home Synjardy resumed. #Hypertension #Hyperlipidemia -Patient is on amlodipine 5 mg p.o. daily, valsartan 160 hydrochlorothiazide 12.5 at home -Pt is on atorvastatin 20 mg nightly at home Plan: -Patient's home on hydrochlorothiazide 25 mg p.o. daily, valsartan 160 mg p.o. daily, resumed by surgery. #GERD -Patient on Protonix 40mg PO twice daily #Hx. of corneal transplantation, right eye -resumed home Acyclovir Health Maintenance Disposition: Medsurg s/p surgery DVT Prophylaxis: SCD QSHIFT GI Prophylaxis: Pantoprozol-40 PO Qday Diet: carbohydrate consistent Lines: Peripheral lines Assessment and plan discussed with my senior resident Dr. Kendall & attending physician Dr. Rajendra Diane (PGY-1)- Internal medicine resident Attending Provider Attestation/Addendum I attest that I was physically present for the evaluation, physical examination, lab and imaging review of the patient with the residents. I discussed the case with the residents and agree with the findings and plans of care as documented above. At bedside today, patient states he is feeling well and does not have any new complaints.? Denies any abdominal pain.? Patient continues to have bloody bowel movements, general surgery following, stated some blood in the stool is expected.? Continues to be on IV Zosyn.? Culture results have been negative for more than 48 hours, patient has been afebrile for the same duration.? WBC counts are trending up, LFTs also worsening, we will discuss with general surgery, if these outcomes are expected from the surgery, patient stable for discharge from internal medicine standpoint on oral amoxicillin and clavulanic acid for 5 more days. Scott Drew MD
--- NOTE | 2024-07-16 16:51 | PC.NURSE ---
Bedside education to on wound care and bandage change. satisfactorily preformed bandage change with supervision and direction from RN. verbalized confidence in preforming wound care and bandage changes at home.
[2024-07-16] MEDS: LATANOPROST OP SOL 0.005% 2.5 ML BTL 1 DROP RIGHT EYE (20:08)
[2024-07-17] VITALS: BP 113/59; PULSE 73; RESP 18; TEMP 36.7; O2SAT 96
[2024-07-17] MEDS: SODIUM CHLORIDE 0.9% 1000 ML 1,000 ML 80 ML IV (03:10)
[2024-07-17 04:00] VITALS: BP 109/81; PULSE 76; RESP 17; TEMP 36.4; O2SAT 95
[2024-07-17] MEDS: PIPER/TAZO 3.375 GM PREMIX 3.375 GM/50 ML BAG IV (05:16)
[2024-07-17 05:22] LABS: Basophils % (Auto) 0 % (0-2.5); Eosinophils # (Auto) 0.4 Thou/mm3 (0.0-0.5); Eosinophils % (Auto) 4 % (0-10); Hemoglobin 11.4 g/dL (13.5-16.0); Immature Granulocytes % (Auto) 1 % (0-0); Immature Granulocytes Auto 0.07 Thou/mm3 (0.00-0.00); Lymphocytes # (Auto) 1.3 Thou/mm3 (1.0-4.8); Lymphocytes % (Auto) 13 % (10-50); Mean Corpuscular HGB Conc 32.6 g/dl (31.0-37.0); Mean Corpuscular Volume 95 fL (80-100); Monocytes # (Auto) 1.1 Thou/mm3 (0.0-0.8); Monocytes % (Auto) 11 % (0-12); Neutrophils # (Auto) 7.4 Thou/mm3 (1.8-7.7); Neutrophils % (Auto) 72 % (37-80); Nucleated Red Blood Cell % 0 /100 WBC (0); Platelet Count 319 Thou/mm3 (140-440); RDW Standard Deviation 45.2 fL (35.1-43.9); Red Blood Count 3.68 Miln/mm3 (4.50-5.90); White Blood Count 10.4 Thou/mm3 (3.8-10.6)
[2024-07-17 06:10] LABS: Alanine Aminotransferase 217 U/L (10-49); Albumin, Serum 3.6 gm/dL (3.5-5.0); Albumin/Globulin Ratio 1.3 (1.2-2.2); Alkaline Phosphatase 152 U/L (46-116); Anion Gap 7 (7-16); Aspartate Amino Transferase 139 U/L (0-34); BUN/Creatinine Ratio 11 Ratio (12-20); Blood Urea Nitrogen 9 mg/dL (9-23); Calcium 8.6 mg/dL (8.3-10.6); Calcium (Corrected) 8.9 mg/dL (8.5-10.1); Carbon Dioxide 27.6 mMol/L (20.0-31.0); Chloride 103 mMol/L (98-107); Creatinine (Component) 0.8 mg/dL (0.6-1.3); Estimated Creatinine Clearance 148.9 mL/min (>60); Globulin 2.7 gm/dL (2.3-3.5); Glucose 132 mg/dL (74-106); Osmolality,Calculated 276 (275-295); Potassium 3.9 mMol/L (3.4-5.1); Sodium 138 mMol/L (136-145); Total Protein 6.3 gm/dL (5.7-8.2); eGFR > 60 See Note
[2024-07-17 07:36] VITALS: BP 94/71; PULSE 77; RESP 17; TEMP 36.4; O2SAT 98
--- NOTE | 2024-07-17 08:36 | PD.SURPROG ---
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 He also has had multiple polyps. He had a recent colonoscopy on Sunday and the proximal margin was marked for resection. He will undergo exploratory laparotomy sigmoid resection and coloproctostomy. Risk benefits and alternatives were discussed in detail with the patient and the family and informed consent was obtained. He has a history of diabetes he also has history of corneal transplantation for the right eye. He also had an upper GI endoscopy that showed that he has gastritis. Patient will undergo CT scan of the chest abdomen and pelvis with contrast prior to surgery. Estimated length of stay about 5 to 7 days. July 11, 2024 postop day 1 This patient is status post colectomy and coloproctostomy. A CBC was done today is H&H is stable. Chemistry shows that he has reduced renal function he has a Parkinson catheter at this time that is draining well. He is using the incentive spirometer and it shows that he is able to take in about 2 L to 2-1/2 L of vital capacity. He has not been getting out of the bed yet. He has not much of abdominal or otherwise pain. He is still getting pain medication IV. Acetaminophen and Toradol is working very well for him along with occasional Dilaudid. The abdominal wound dressing is changed and wet and dry dressing is being carried out at this time. There are no other complaints other than common cold and nasal drainage. He requested Nasacort that he is using at home for allergies. Patient is encouraged to get out of the bed in the chair I will remove the Parkinson catheter at this time. He is passing flatus so we will start clear liquid diet. July 12, 2024 postop day 2 This patient is s/p colectomy and coloproctostomy. Repeat CBC and CMP are stable and improved. Patient is tolerating full liquid diet well and wants to eat more. His sugar is in reasonable control. His pain is managed by IV narcotics and toradol. The wound dressing was changed and the wound has minimal drainage. The bp is in good control. Patient was restarted on Acyclovir for his eye. Patient is getting out of the bed to the bathroom. He had no bowel movement but is passing significant amount of flatus and he does not have any rectal bleeding. The physical therapy is requested to help him ambulate in the hallways. July 13, 2024 postop day 3 This patient is status post colectomy and coloproctostomy for cancer. He seems to be doing well he was transferred over to the soft mechanical diet and he is enjoying that he has no difficulty with the eating he wants to eat more. He walked with the physical therapy all the way around the [place] block. He said he could walk more. He has been passing flatus and he does not have any rectal bleeding. He is using the incentive spirometer to about 3000 mL capacity and is doing well with that his blood pressure is under good control with oral management. His pain control is also reasonable and now that he is tolerating oral intake I will switch him over to oral pain medication. The wound was irrigated and appears to be healing normally there is no external drainage. Abdominal binder is in place around the dressing. He has no other complaints. He is inquiring about the result of the pathology which is not back yet it is known that he has adenocarcinoma of the rectosigmoid junction. Him and his son has question about follow-up after discharge and cancer treatment center and the referral will be made after pathology result is available. The last blood sugar was 109 seen good control. 07/14/2024 postop day 4 afternoon rounds. This patient is status post colectomy and coloproctostomy for cancer. The patient is getting out of bed and walking around in the hallways. He has made 3 rounds around the block. He had a fever of 104 and he was having sweating with that the vital signs were normal. The blood culture was drawn the rapid response was called and patient was seen by the hospitalist service. The case was discussed with the responding resident physician. Repeat's white cell count is at 12,000 which is not much different he is H&H is stable. The patient denies having any abdominal pain. He had a solid bowel movement in he said a lot came out. There is no bleeding with the bowel movement. Case was discussed there is no need for CT scan with contrast because we already know that he had a surgery in the pelvis and the CT will say there is a collection of fluid which is expected. Also I do not want him to have any IV contrast because last time he had a CT scan with contrast tomorrow staging purposes about 5 days ago he is a creatinine went up he also has history of calcification of the left anterior descending artery as seen on the CAT scan and also he is hypertensive with cardiac hypertrophy. Will order the CT scan if it is absolutely necessary. At this time in the afternoon change his dressing he has no abdominal tenderness there is no infection in the wound there is no drainage and it is likely that the fever he had is of viral origin. The chest x-ray was done and that chest x-ray was normal. Will continue to observe him also will advance his diet to regular food. July 15, 2024 postop day 5 Patient is not having high-grade fever he is on Zosyn does not have symptoms. Wound dressing was changed there is minimal serosanguineous drainage. Bowel tones are present and he had 2 bowel movements a small amount of blood in the bowel movement but that is expected. The pathology report showed that out of 22 1 lymph node was positive. The tumor was invading the muscularis propria and the margins were clear of cancer. Donuts were intact and clear of any tumor. The pathologic findings were discussed with the patient. As long as he is having fever we will continue with antibiotic. Once he goes home then he is going to require home health care nurse visiting so that the wound care can be continued. After he heals up he will be referred to the cancer treatment center for consideration for adjuvant chemotherapy. July 16, 2024 postop day 6. Discussed with the hospitalist service president [employer]. Patient is not having high-grade fever may have been Zosyn. He can be discharged home. He is having regular bowel movements without much of bleeding or any other symptoms. He is tolerating a regular diet and is ambulating well this time that he may be discharged home on oral pain medication and oral antibiotics. Patient agrees he wants to go home. He has a wound that requires wet-to-dry dressing and his family is willing to learn and do his dressing until he comes back to the office. July 17, 2024 postop day 7 Patient is mild white cell count has come down to 10,000 H&H is stable and patient is wanting to go home because he has no pain much and he is ambulating he is going to the bathroom and he has no other problem with activities of daily life. He is he will be discharged and he will follow-up in the office in 2 weeks there will be local care instituted by the family as well as the home health care nurse. Exam Vital Signs Temp Pulse Resp BP Pulse Ox O2 Del Method O2 Flow Rate 97.6 F 77 17 94/71 98 Room Air 3 07/17/24 07:36 07/17/24 07:36 07/17/24 07:36 07/17/24 07:36 07/17/24 07:36 07/17/24 07:36 07/11/24 11:38 Narrative Exam Cardiopulmonary examination is normal abdomen is soft and nontender extremities are not remarkable abdominal wound dressing is being done with wet-to-dry dressing there is no drainage. Results Results: Laboratory Laboratory results: results reviewed Assessment & Plan Diagnosis (1) Status post colectomy: Status: Acute (2) Rectosigmoid cancer: Status: Acute Plan Discharge patient home on self wound care with home health care nurse visiting follow-up in the office in 2 weeks oral pain medication at home. Patient to resume all his medications and will also add antibiotic. Procedures Procedure Date 07/10/24 Procedures Exploratory laparotomy sigmoid colectomy and coloproctostomy and umbilical hernia repair on July 10, 2024
[2024-07-17 09:45] VITALS: BP 110/84; PULSE 82
[2024-07-17] MEDS: hydroCHLOROthiazide 12.5 MG CAPSULE 25 MG PO (09:45)
[2024-07-17] MEDS: prednisoLONE OP SUSP 1% 5 ML BTL 1 DROP RIGHT EYE (09:47)
[2024-07-17] MEDS: GABAPENTIN 100 MG CAPSULE 200 MG PO (09:48)
[2024-07-17 09:49] VITALS: BP 110/84; PULSE 82
[2024-07-17] MEDS: VALSARTAN 80 MG TABLET 160 MG PO (09:49)
[2024-07-17] MEDS: PANTOPRAZOLE 40 MG TABLET PO (09:49)
[2024-07-17] MEDS: ACYCLOVIR 200 MG CAPSULE 400 MG PO (09:50)
[2024-07-17] MEDS: FLUTICASONE NAS SPRAY 0.05% 16 GM BTL 1 SPRAY NASAL (09:51)
[2024-07-17] MEDS: TIMOLOL RIGHT EYE (09:52)
[2024-07-17] MEDS: BRIMONIDINE RIGHT EYE (09:52)
--- NOTE | 2024-07-17 11:14 | ESDS_ITS ---
Planned Discharge Date 07/17/24 DS: Providers Provider Date of admission: 07/09/24 12:56 Primary care physician: Samuel Beckham MD Admitting Provider: Samuel Beckham MD Attending Provider on Admission: Samuel Beckham MD Consults: 07/12/24 09:28 Referral Physical Therapy Stat Comment: Physician Instructions: 07/14/24 13:03 Consult to Adult Hospitalist Stat Comment: uncontrolled fevers Consulting Provider: Samuel Beckham Attending Provider on DC: Samuel Beckham MD Discharging Provider: Samuel Beckham MD Diagnosis Problem List Completed Was Problem List Reviewed/Reconciled?: Yes Hospital Course Brief History: This 54-year-old gentleman has had rectal bleeding and he was evaluated and found to have 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 He also has had multiple polyps. He had a recent colonoscopy on Sunday and the proximal margin was marked for resection. He will undergo exploratory laparotomy sigmoid resection and coloproctostomy. Risk benefits and alternatives were discussed in detail with the patient and the family and informed consent was obtained. He has a history of diabetes he also has history of corneal transplantation for the right eye. He also had an upper GI endoscopy that showed that he has gastritis. Patient will undergo CT scan of the chest abdomen and pelvis with contrast prior to surgery. Estimated length of stay about 5 to 7 days. July 11, 2024 postop day 1 This patient is status post colectomy and coloproctostomy. A CBC was done today is H&H is stable. Chemistry shows that he has reduced renal function he has a Parkinson catheter at this time that is draining well. He is using the incentive spirometer and it shows that he is able to take in about 2 L to 2-1/2 L of vital capacity. He has not been getting out of the bed yet. He has not much of abdominal or otherwise pain. He is still getting pain medication IV. Acetaminophen and Toradol is working very well for him along with occasional Dilaudid. The abdominal wound dressing is changed and wet and dry dressing is being carried out at this time. There are no other complaints other than common cold and nasal drainage. He requested Nasacort that he is using at home for allergies. Patient is encouraged to get out of the bed in the chair I will remove the Parkinson catheter at this time. He is passing flatus so we will start clear liquid diet. July 12, 2024 postop day 2 This patient is s/p colectomy and coloproctostomy. Repeat CBC and CMP are stable and improved. Patient is tolerating full liquid diet well and wants to eat more. His sugar is in reasonable control. His pain is managed by IV narcotics and toradol. The wound dressing was changed and the wound has minimal drainage. The bp is in good control. Patient was restarted on Acyclovir for his eye. Patient is getting out of the bed to the bathroom. He had no bowel movement but is passing significant amount of flatus and he does not have any rectal bleeding. The physical therapy is requested to help him ambulate in the hallways. July 13, 2024 postop day 3 This patient is status post colectomy and coloproctostomy for cancer. He seems to be doing well he was transferred over to the soft mechanical diet and he is enjoying that he has no difficulty with the eating he wants to eat more. He walked with the physical therapy all the way around the [place]. He said he could walk more. He has been passing flatus and he does not have any rectal bleeding. He is using the incentive spirometer to about 3000 mL capacity and is doing well with that his blood pressure is under good control with oral management. His pain control is also reasonable and now that he is tolerating oral intake I will switch him over to oral pain medication. The wound was irri gated and appears to be healing normally there is no external drainage. Abdominal binder is in place around the dressing. He has no other complaints. He is inquiring about the result of the pathology which is not back yet it is known that he has adenocarcinoma of the rectosigmoid junction. Him and his son has question about follow-up after discharge and cancer treatment center and the referral will be made after pathology result is available. The last blood sugar was 109 seen good control. 07/14/2024 postop day 4 afternoon rounds. This patient is status post colectomy and coloproctostomy for cancer. The patient is getting out of bed and walking around in the hallways. He has made 3 rounds around the block. He had a fever of 104 and he was having sweating with that the vital signs were normal. The blood culture was drawn the rapid response was called and patient was seen by the hospitalist service. The case was discussed with the responding resident physician. Repeat's white cell count is at 12,000 which is not much different he is H&H is stable. The patient denies having any abdominal pain. He had a solid bowel movement in he said a lot came out. There is no bleeding with the bowel movement. Case was discussed there is no need for CT scan with contrast because we already know that he had a surgery in the pelvis and the CT will say there is a collection of fluid which is expected. Also I do not want him to have any IV contrast because last time he had a CT scan with contrast tomorrow staging purposes about 5 days ago he is a creatinine went up he also has history of calcification of the left anterior descending artery as seen on the CAT scan and also he is hypertensive with cardiac hypertrophy. Will order the CT scan if it is absolutely necessary. At this time in the afternoon change his dressing he has no abdominal tenderness there is no infection in the wound there is no drainage and it is likely that the fever he had is of viral origin. The chest x-ray was done and that chest x- ray was normal. Will continue to observe him also will advance his diet to regular food. July 15, 2024 postop day 5 Patient is not having high-grade fever he is on Zosyn does not have symptoms. Wound dressing was changed there is minimal serosanguineous drainage. Bowel tones are present and he had 2 bowel movements a small amount of blood in the bowel movement but that is expected. The pathology report showed that out of 22 1 lymph node was positive. The tumor was invading the muscularis propria and the margins were clear of cancer. Donuts were intact and clear of any tumor. The pathologic findings were discussed with the patient. As long as he is having fever we will continue with antibiotic. Once he goes home then he is going to require home health care nurse visiting so that the wound care can be continued. After he heals up he will be referred to the cancer treatment center for consideration for adjuvant chemotherapy. July 16, 2024 postop day 6. Discussed with the hospitalist service resident services supervisor. Patient is not having high-grade fever may have been Zosyn. He can be discharged home. He is having regular bowel movements without much of bleeding or any other symptoms. He is tolerating a regular diet and is ambulating well this time that he may be discharged home on oral pain medication and oral antibiotics. Patient agrees he wants to go home. He has a wound that requires wet-to-dry dressing and his family is willing to learn and do his dressing until he comes back to the office. July 17, 2024 postop day 7 Patient is mild white cell count has come down to 10,000 H&H is stable and patient is wanting to go home because he has no pain much and he is ambulating he is going to the bathroom and he has no other problem with activities of daily life. He is he will be discharged and he will follow-up in the office in 2 weeks there will be local care instituted by the family as well as the home health care nurse. This patient was admitted to the hospital because of the finding of a new adenocarcinoma of the rectosigmoid junction on colonoscopy examination. He underwent sigmoid colectomy and coloproctostomy on 07/10/2024. Postoperatively he did reasonably well. His abdominal wound was left open to the fascia. He required IV pain medication with narcotics over a period of time. His diabetes remained in control and his sugar control was adequate. He is Parkinson catheter was removed on the postop day 1 he started voiding. He is remained symptom-free for 2 days he was started on liquid diet that was advanced to semisolid diet. He developed viral syndrome and then he had high-grade fever to 104 rapid response was called and internal medicine consultation from the hospitalist was requested he was started on Zosyn. His chest x-ray was normal. His white cell count maximum was about 13,000 and that came down to 10,000-day before the discharge. Currently he is tolerating regular food and ambulating well is having bowel movements and he has an order and arrangement for home health care nurse to visit him for wound care. The family is also taught on how to do the wound care. He will follow-up in Dr. Beckham's office within 2 weeks. Condition on discharge markedly improved. He will have some pain medication to take at home he can also take Tylenol and ibuprofen by himself. Status at Discharge Functional status at discharge: independent ambulation Overall status at discharge: patient is progressing back to baseline Exam Vital Signs Temp Pulse Resp BP Pulse Ox O2 Del Method O2 Flow Rate 97.6 F 82 17 110/84 98 Room Air 3 07/17/24 07:36 07/17/24 09:49 07/17/24 07:36 07/17/24 09:49 07/17/24 07:36 07/17/24 07:36 07/11/24 11:38 Narrative Exam The abdomen is soft and nondistended and the wound dressing is dry and intact there is no wound infection cardiopulmonary exam is normal extremities are unremarkable. The rectal examination showed there is no blood on the rectal exam. Discharge Plan Plan Patient Disposition: HOME (Self Care) Prescriptions/Referrals Prescriptions/Med Rec: New hydrocodone-acetaminophen 10-325 mg tablet 1 tab PO Q6H MDD 4 PRN (Reason: pain) Qty: 20 0RF amoxicillin-pot clavulanate [Augmentin] 500-125 mg tablet 1 tab PO TID Qty: 20 0RF Continued valsartan-hydrochlorothiazide 160-12.5 mg tablet 1 tab PO QDAY tamsulosin 0.4 mg capsule 0.4 mg PO QHS amlodipine 5 mg tablet 5 mg PO QDAY Patient Comments: TAKE ONE TABLET BY MOUTH EVERY DAY FOR BLOOD PRESSURE acyclovir 400 mg tablet 400 mg PO BID Patient Comments: TAKE ONE TABLET BY MOUTH TWICE DAILY atorvastatin 20 mg tablet 20 mg PO HS Patient Comments: TAKE ONE TABLET BY MOUTH EVERY DAY FOR CHOLESTEROL Synjardy 12.5-500 mg tablet 1 tab PO QDAY Patient Comments: TAKE ONE TABLET BY MOUTH TWICE DAILY FOR DIABETES prednisolone acetate 1 % drops,suspension 1 drp OPHTHALMIC (EYE) Q12H Patient Comments: USE 1 DROP IN THE RIGHT EYE TWICE A DAY omeprazole 20 mg capsule,delayed release(DR/EC) 20 mg PO .h12 Patient Comments: TAKE ONE CAPSULE BY MOUTH TWICE DAILY GASTRIC ACIDITY bisacodyl 5 mg tablet,delayed release (DR/EC) 5 mg PO TID PRN (Reason: constipation) Patient Comments: TAKE ONE TABLET BY MOUTH THREE TIMES DAILY NEEDED valsartan-hydrochlorothiazide 160-25 mg tablet 1 tab PO DAILY Patient Comments: TAKE ONE TABLET BY MOUTH EVERY DAY peg 3350-electrolytes 236-22.74-6.74 -5.86 gram recon soln 240 ml PO ONCE PM Patient Comments: ADD CLEAR LIQUID TO THE LINE AND DRINK THE WHOLE BOTTLE STARTING IN THE AFTERNOON ON THE DAY BEFORE PROCEDURE brimonidine-timolol 0.2-0.5 % drops 1 drp OPHTHALMIC (EYE) BID Patient Comments: USE 1 DROP IN THE RIGHT EYE TWICE DAILY latanoprost 0.005 % drops 1 drp OPHTHALMIC (EYE) HS Patient Comments: USE 1 DROP IN THE RIGHT EYE AT BEDTIME Referrals: Samuel Beckham MD [Primary Care Provider] - Patient/Caregiver Discharge Instructions Other Discharge Activity Instructions:: Wet-to-dry dressing to the abdominal wound once or twice a day follow-up in the office in 2 weeks Other Discharge Diet Instructions: Advance diet to regular diet Print Language: Hong Konger Stand Alone Forms: Sudha Award Info., Patient Portal Info Letter Discharge Order Discharge Orders: Discharge (Routine); Ordered 07/17/24 Ordered By: Samuel Beckham Results Results: Laboratory Laboratory results: results reviewed Procedures Procedures Exploratory laparotomy sigmoid colectomy and coloproctostomy and umbilical hernia repair on July 10, 2024
--- NOTE | 2024-07-17 17:22 | PC.CC ---
sent dc summary and dc orders to [facility] Pending start of care date.
--- NOTE | 2024-07-18 13:11 | PC.CC ---
Patient refered to [facility], start of care 07/19/24 per patient's request.
== END 2024-07-17 11:54 | disposition home health service (06) | DRG 330 ==
PROVIDERS: Student in an Organized Health Care Education/Training Program; Admitting Provider Specialist; PCP Specialist; Visit Provider Specialist
PROC: 0DTN0ZZ Resection of Sigmoid Colon, Open Approach (ICD-10-PCS; CPT 49000; principal; 2024-07-10 09:00)
DX: C19 Malignant neoplasm of rectosigmoid junction (principal); K42.0 Umbilical hernia with obstruction, without gangrene; Z68.42 Body mass index [BMI] 45.0-49.9, adult; E11.9 Type 2 diabetes mellitus without complications; K29.70 Gastritis, unspecified, without bleeding; J00 Acute nasopharyngitis [common cold]; E78.5 Hyperlipidemia, unspecified; K21.9 Gastro-esophageal reflux disease without esophagitis; N40.0 Benign prostatic hyperplasia without lower urinary tract symptoms; I10 Essential (primary) hypertension; E66.9 Obesity, unspecified; Z94.7 Corneal transplant status; Z79.899 Other long term (current) drug therapy; I51.7 Cardiomegaly
CPT/HCPCS: 36415; 71045; 71260; 74177; 80053; 81001; 83605; 83735; 85025; 85610; 85730; 86850; 86900; 86901; 87040; 93005; 94664; 97161; A4217; A4649; J0131; J0694; J1100; J1885; J2250; J2371; J2405; J2543; J2704; J3010; J3490; J7030; J7050; J7121; Q9967; A9270; J0665

== ENCOUNTER 2024-08-06 13:25 | Outpatient (RCR) | payer MEDICARE, MEDICAID, SELFPAY ==
--- NOTE | 2024-08-06 15:51 | CTCCONSULT_ITS ---
[facility] [address] [place], [place] [address] Consultation Note Date: 08/06/2024 MR#: [id number] Name: DONNA ROSALES : 1970 Dx: C18.7 Malignant neoplasm of sigmoid colon Referring physician Samuel Beckham MD: History of Present Illness: Patient is a 54-year-old male who was passing blood via lower GI tract and a upper and lower endoscopy 07/08/[address] Beckham revealed appearance of colon cancer in the rectosigmoid junction, along with 3 polyps in the sigmoid colon. Mild inflammation noted in gastric antrum. Biopsy from ?rectal? area revealed invasive adenocarcinoma well-differentiated with no loss of expression. There were negative biopsies from stomach antrum and polyps removed from colon revealed adenoma and negative for high-grade dysplasia or malignancy. Chest abdomen pelvis CT July 09, 2024 no interval met disease. Labs 07/17/2024 hemoglobin 11.4 LFTs somewhat elevated at 139 AST alk phos 152 AST 217. Bilirubin was 1.0 on 07/17/2024 though somewhat elevated on previous draws. Patient underwent sigmoid colectomy along with umbilical hernia repair on 07/10/2024. There was invasive adenocarcinoma in the sigmoid region with margins negative tumor size 3.1 x 3.0 x 0.7 cm. Macroscopic tumor perforation not seen well-differentiated grade 1 lymphovascular invasion present perineural invasion not seen 1 of 22 lymph nodes removed positive. pT2N1a. Patient now referred for oncological consultation. Past Medical History: High blood pressure diabetes Meds. Losartan hydrochlorothiazide amlodipine atorvastatin tamsulosin Acyclovir metformin Allergies none to meds Social History: Patient retired lives in [place] Review of Systems: Has had blood in bowel movement anxiety cough recent fever sleep problem Physical Exam: General: Obese male no acute distress HEENT: Atraumatic normocephalic extraocular is intact no oral lesion no cervical or supraclavicular adenopathy CV: Chest clear to auscultation heart regular rate and rhythm ABD: Distended due to obesity surgical changes noted well-healed EXT: No signs of clubbing or edema Assessment: Patient with stage IIIA sigmoid colon CA completely resected. 1 positive node of 22 removed. p T2N1a Plan:1. Will asked Dr. Beckham regarding port placement for anticipated chemo.. 2. Repeat labs, and check his LFTs which were recently elevated along with CEA. 3. Dr. Sue, medical oncologist, to see patient 4. Thank you very much for allowing me to evaluate this patient Electronically signed by: Trevor Marcos MD, DABR 08/06/2024 3:49 PM
== END 2024-08-06 23:59 | disposition home or self-care (01) ==
LOC: SCTC 13:25
PROVIDERS: PCP Nurse Practitioner Primary Care; Referring Provider Specialist; Visit Provider Radiology Therapeutic Radiology
DX: C18.7 Malignant neoplasm of sigmoid colon (principal)
CPT/HCPCS: 99213; G0463

== ENCOUNTER → 2024-08-21 | Outpatient (CLI) | payer MEDICARE, MEDICAID, SELFPAY ==
[2024-08-21 08:51] LABS: Basophils # (Auto) 0.1 Thou/mm3 (0.0-0.2); Basophils % (Auto) 1 % (0-2.5); Eosinophils # (Auto) 0.1 Thou/mm3 (0.0-0.5); Eosinophils % (Auto) 1 % (0-10); Hematocrit 41.6 % (41.0-53.0); Hemoglobin 13.5 g/dL (13.5-16.0); Immature Granulocytes % (Auto) 0 % (0-0); Immature Granulocytes Auto 0.04 Thou/mm3 (0.00-0.00); Lymphocytes % (Auto) 20 % (10-50); Mean Corpuscular HGB Conc 32.5 g/dl (31.0-37.0); Mean Corpuscular Hemoglobin 30.5 pg (25.0-35.0); Mean Corpuscular Volume 94 fL (80-100); Monocytes % (Auto) 10 % (0-12); Neutrophils # (Auto) 6.8 Thou/mm3 (1.8-7.7); Neutrophils % (Auto) 68 % (37-80); Nucleated Red Blood Cell % 0 /100 WBC (0); Platelet Count 326 Thou/mm3 (140-440); RDW Standard Deviation 46.1 fL (35.1-43.9); Red Blood Count 4.43 Miln/mm3 (4.50-5.90)
[2024-08-21 08:52] LABS: Alanine Aminotransferase 25 U/L (10-49); Albumin, Serum 4.4 gm/dL (3.5-5.0); Albumin/Globulin Ratio 1.5 (1.2-2.2); Alkaline Phosphatase 91 U/L (46-116); Anion Gap 9 (7-16); Aspartate Amino Transferase 16 U/L (0-34); BUN/Creatinine Ratio 22 Ratio (12-20); Bilirubin,Total 0.9 mg/dL (0.3-1.2); Blood Urea Nitrogen 20 mg/dL (9-23); Calcium 9.2 mg/dL (8.3-10.6); Calcium (Corrected) 9.2 mg/dL (8.5-10.1); Carbon Dioxide 29.3 mMol/L (20.0-31.0); Chloride 102 mMol/L (98-107); Creatinine (Component) 0.9 mg/dL (0.6-1.3); Glucose 129 mg/dL (74-106); Osmolality,Calculated 284 (275-295); Potassium 4.5 mMol/L (3.4-5.1); Sodium 140 mMol/L (136-145); Total Protein 7.4 gm/dL (5.7-8.2); eGFR > 60 See Note
== END | disposition home or self-care (01) ==
LOC: SCTO 06:48
PROVIDERS: PCP Nurse Practitioner Primary Care; Referring Provider Radiology Therapeutic Radiology; Visit Provider Radiology Therapeutic Radiology
DX: C18.7 Malignant neoplasm of sigmoid colon (principal)
CPT/HCPCS: 36415; 80053; 82378; 85025

== ENCOUNTER 2024-08-22 05:40 | Day surgery (SDC) | payer MEDICARE, MEDICAID, SELFPAY ==
[2024-08-21 07:28] VITALS: BMI 42.6
[2024-08-21 08:33] LABS: Collection Type, Urine Clean Catch
[2024-08-21 09:05] LABS: Partial Thromboplastin Time 25.8 Seconds (22.0-36.0)
[2024-08-21 09:06] LABS: Bacteria,Urine Rare; Bilirubin,Urine Negative (Negative); Blood,Urine Negative (Negative); Clarity,Urine Clear (Clear/Hazy); Color,Urine Lt-Yellow (Lt Yel-Yel); Glucose, Urine 4+ (Negative); Ketones,Urine Negative (Negative); Leukocyte Esterase,Urine Negative (Negative); Nitrite,Urine Negative (Negative); Protein,Urine Negative (Neg - Trace); RBC,Urine 2 /hpf (0-3); Specific Gravity,Urine 1.023 (1.001-1.035); Squamous Epithelial Cell,Urine 1 /hpf (0-5); Urobilinogen,Urine Negative mg/dL (0.0-1.0); WBC,Urine 1 /hpf (0-5)
[2024-08-22 06:29] VITALS: BP 123/78; PULSE 71; RESP 12; TEMP 36.6; O2SAT 97; BMI 43.7
--- NOTE | 2024-08-22 07:28 | SUR.PREOP ---
Patient expressed gratitude for prayer before their procedure
--- NOTE | 2024-08-22 07:30 | XR_ITS ---
Examination: 48 spot fluoroscopic chest films Fluoroscopy Exam date and time: August 22, 2024 0943 hours INDICATIONS: Port-A-Cath insertion TECHNIQUE AND FINDINGS: 48 spot fluoroscopic films of the chest Port-A-Cath line tip projects at the level of the right atrium Fluoroscopy 101 seconds radiation dose 30.20 milligray IMPRESSION: Port-A-Cath insertion as above
[2024-08-22 09:20] VITALS: BP 122/67; PULSE 63; RESP 18; TEMP 36.5; O2SAT 96
--- NOTE | 2024-08-22 09:20 | SUR.PHASEII ---
0920: Pt. AAOx4, vitals stable, breathing unlabored, no complaint of pain or nausea, dressing to left chest CDI, no active bleed noted, report received from MD Bassett and Crystal ANGLIN.
[2024-08-22 09:25] VITALS: BP 117/85; PULSE 69; RESP 13; TEMP 36.5; O2SAT 97
--- NOTE | 2024-08-22 09:25 | PD.SUROPNT ---
Date of Procedure 08/22/24 Pre Op Diagnosis Stage III colorectal cancer status post colectomy Post Op Diagnosis Same patient needs chemotherapy Procedure Implantation of a Port-A-Cath left subclavian region under fluoroscopy and ultrasound guidance. On 08/22/2024 Findings The fluoroscopy showed that he has good positioning of the guidewire into the superior vena cava and the right atrial junction. After the catheter was inserted and implanted it also shows a good position of the tip of the catheter. The postoperative chest x-ray is pending. Procedure Description The patient was examined in the preop area and the procedure was discussed in detail with the patient and informed consent is obtained. He has a stage III colon cancer and requires chemotherapy and therefore Port-A-Cath is requested. There is a risk of infection hemorrhage and pneumothorax. After this the patient was taken to the operating room and positioned supine on the operating room table. IV antibiotics were given to the patient and a timeout procedure was carried out. MAC anesthesia was given to the patient and local anesthesia 1% lidocaine with epinephrine is used in the left subclavian region. The patient is positioned in the Trendelenburg position and I tried to insert the needle into the left subclavian vein by landmarks however that was not successful. Therefore I had to use the real-time ultrasound guidance to locate the left subclavian vein and then under real-time guidance I was able to find the vein and then insert the needle in it and the guidewire. Initially the guidewire was going into the jugular vein but under fluoroscopic control I was able to reposition that in to superior vena cava this was done under the C-arm fluoroscopy and it shows the tip of the guidewire is in the superior vena cava and the right atrium junction. After the venous access was obtained I infiltrated more a lidocaine with epinephrine in the left subclavian region for the placement of the port. The regular sized port was selected. The port was irrigated with heparinized saline solution and the catheter was also irrigated with heparinized saline solution. After that I made a transverse incision in the left subclavian region and I developed a subcutaneous pocket in front of the pectoralis fascia. Hemostasis was achieved. The pocket was adequate in size for the size of the port. After that I used the dilator over the guidewire and inserted the catheter through the dilator. The position of the catheter tip was ascertained at the junction of the superior vena cava and right atrium. After that I tailored the length of the catheter and attached the port to the catheter. After that I placed the port in the pocket and inserted the needle and irrigated the port with heparinized saline solution. There is excellent retrograde and antegrade flow from the port. After this I sutured the port with the pectoralis fascia with interrupted 2-0 silk sutures. Again the catheter position is checked with fluoroscopy and it is in excellent position. We flushed the pocket with gentamicin solution containing saline and subcutaneous tissue was approximated by 3-0 Vicryl interrupted sutures and skin by nikita. Patient tolerated the procedure very well. Sterile dressing was applied. Complications were none. Chest x-ray is pending for the recovery room. Anesthesia MAC Drains None. Implants Port-A-Cath in the left subclavian vein in the subcutaneous pocket Pathology / specimen None Estimated Blood Loss 10 Condition Stable Disposition PACU Surgeon Samuel Beckham MD Surgical Staff Operation Date: 08/22/24 07:30 Case Staff Anesthesiologist: Christian Bassett surgical instrument mechanic Rosario ANGLIN barrel and receiver aligner
[2024-08-22 09:30] VITALS: BP 117/80; PULSE 72; RESP 14; TEMP 36.5; O2SAT 95
[2024-08-22 09:35] VITALS: BP 139/72; PULSE 57; RESP 16; TEMP 36.7; O2SAT 93
--- NOTE | 2024-08-22 09:42 | XR_ITS ---
Examination: AP chest single view Technique one AP portable upright chest single view Date and time: August 22, 2024 0949 hours Comparison July 14, 2024 INDICATIONS: Postop Port-A-Cath insertion FINDINGS: Left subclavian Port-A-Cath tip SVC satisfactory position Normal heart size No pneumothorax IMPRESSION: Left subclavian Port-A-Cath tip satisfactory position
[2024-08-22 09:50] VITALS: BP 124/80; PULSE 73; RESP 17; TEMP 36.9; O2SAT 97
--- NOTE | 2024-08-22 09:56 | SUR.PHASEII ---
0956: Pt. AAOx4, vitals stable, breathing unlabored, no complaint of pain or nausea, dressing to left chest CDI, no active bleed noted, pt. tolerated sips of water well, pt. ambulated to wheelchair with steady gait and no assist, no complications. Gave discharge instructions to the pt. and his ride using sheet metal journeyman, both verbalized understanding and had no further questions. Pt. left with all personal belongings.
== END 2024-08-22 09:56 | disposition home or self-care (01) ==
PROVIDERS: PCP Nurse Practitioner Primary Care; Referring Provider Specialist; Visit Provider Specialist
PROC: (CPT 36561; principal; 2024-08-22 07:30)
DX: C19 Malignant neoplasm of rectosigmoid junction (principal); Z85.038 Personal history of other malignant neoplasm of large intestine; E66.9 Obesity, unspecified; I10 Essential (primary) hypertension; E11.9 Type 2 diabetes mellitus without complications; Z68.41 Body mass index [BMI] 40.0-44.9, adult
CPT/HCPCS: 36561; 36415; 71045; 76000; 80053; 81001; 85025; 85730; A4217; A4649; C1788; J0461; J2250; J2704; J3010; J3490; J7999; A9270

== ENCOUNTER 2024-09-05 08:43 | Outpatient (RCR) | payer MEDICARE, MEDICAID, SELFPAY ==
--- NOTE | 2024-08-28 17:15 | CTCCONSULT_ITS ---
Patient: DONNA ROSALES : 1970 MR#: [id number] Page 2 of 2 CONSULTATION NOTE DATE OF CONSULTATION: 08/26/2024 NAME: DONNA ROSALES ACCOUNT: [id number] : 1970 AGE: 54 REFERRING PHYSICIAN: Marisol Dominguez MD PRIMARY PHYSICIAN: Marisol Dominguez MD REASON FOR VISIT: Colon cancer ONCOLOGY HISTORY: DIAGNOSIS: Malignant neoplasm of sigmoid colon [ICD10] C18.7 DATE OF DIAGNOSIS: 07/10/2024 STAGE/TNM: Stage 3 A TREATMENT HISTORY: Care?Plan Start?Date Cycle Day Intent CapOX?adj?T3N1?3mon?4?cycles 08/26/2024 1 21 Curative?(primary) HISTORY OF PRESENT ILLNESS: Subjective: Chief Complaint Blood in stool for 3 months, fatigue, constipation, dizziness, change in stool caliber 5-6 months ago History of Present Illness Osmin Leggett is a 54-year-old male presenting for follow-up of recently diagnosed and treated colon cancer. The patient reports a history of blood in the stool, fatigue, constipation, and dizziness starting approximately 3 months ago. The patient first noticed changes in his stool caliber about 5-6 months ago. This was followed by the onset of blood in the stool approximately 3 months ago, accompanied by fatigue, constipation, and occasional dizziness. A lower GI colonoscopy performed on 07-08-2024 revealed colon cancer in the rectosigmoid junction, along with 3 polyps in the sigmoid colon. Biopsies confirmed invasive adenocarcinoma in the rectal area. On 07-10-2024, the patient underwent sigmoid colectomy and umbilical hernia repair. Pathology revealed a 3.1 x 3 x 0.7 cm well-differentiated grade one tumor with lymphovascular invasion and one positive lymph node out of 22 removed. The final staging was T2N1M0, stage 3A cancer. The patient is now preparing to start chemotherapy, with a preference for taking tablets at home and receiving infusions every two weeks. A port has already been placed for this purpose. He has been advised to make significant lifestyle changes, including dietary modifications, increased hydration, and avoiding heavy lifting. The patient owns a small store and has been instructed to remain active but avoid prolonged sitting and heavy lifting to prevent complications such as blood clots and hernia recurrence. Medications and Supplements - Magic mouthwash - Used to prevent mouth pain during chemotherapy. - Expensive. Review of Systems General: Positive for fatigue. Gastrointestinal: Positive for constipation, blood in stool, change in stool caliber. Neurological: Positive for dizziness. Objective: Laboratory, Imaging, and Diagnostic Test Results - Lower GI colonoscopy (07/08/2024): - Colon cancer in rectosigmoid junction - 3 polyps in sigmoid colon - Inflammation in stomach - Biopsies: - Rectal area: Invasive adenocarcinoma, well-differentiated, no loss of expression - Stomach: Negative - Colon polyps: Adenoma, non-cancerous, negative for high-grade dysplasia malignancy - No cancer in colon - Chest, abdomen, pelvis imaging: No interval metastatic disease - Hemoglobin: Good (specific value not provided) - Bile: Normal - Sigmoid colectomy pathology (07/10/2024): - Invasive adenocarcinoma in sigmoid region - Negative margins - Tumor size: 3.1 x 3 x 0.7 cm - No macroscopic tumor perforation - Well-differentiated grade one tumor - Lymphovascular invasion present - No perineural invasion - 1 of 22 lymph nodes positive for cancer - Final stage: T2N1M0 (stage 3A cancer) OTHER MEDICAL HISTORY/CONDITIONS: Invasive adenocarcinoma - dx 07/08/24 Diabetes HTN Hyperlipidemia BPH Port placement - 08/22/24 Exp Lap Sigmoid colectomy and coloproctostomy and umbilical hernia repair - 07/10/24 - Dr. 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 Tobacco Use:?Quit 20yrs ago - Smoked 1-2yrs 3 cigarettes/day ETOH Use:?Stopped recenlty- Drank 4 beers 2-3x/week for 40yrs Drug?Note:?Denies Social?History?Note:?Lives?with? MEDICATIONS: 1. acyclovir - 400 mg Twice a Day 2. atorvastatin - 20 mg Daily 3. empagliflozin-metformin - 12.5-500 mg 1 tab Daily 4. Flomax - 0.4 mg Daily 5. Norvasc - 5 mg Daily 6. valsartan-hydrochlorothiazide - 160-25 mg 1 tab Daily Medications Last Reconciled by Erika Balderrama RN on 08/26/2024 ALLERGIES: No Known Drug Allergies; No Known Allergies REVIEW OF SYSTEMS: A complete 14-point review of systems was performed and is negative except as noted in interval history. PHYSICAL EXAMINATION: VITAL SIGNS: B/P?116/66, Height?70?inches, Oxygen?Saturation?96% Weight?298?lbs (Change?since?08/06/24:?3?lbs) PAIN: 0 - No pain GENERAL APPEARANCE: Appears well, in no apparent distress, appropriately interactive. HEENT: Normocephalic, no temporal wasting, normal conjunctiva, no scleral icterus, normal hearing, lips without lesions, neck normal range of motion. CARDIOVASCULAR: Not assessed. PULMONARY: Normal respiratory effort, no respiratory distress or use of accessory muscles, speaking in full sentences, no tachypnea. EXTREMITIES: No pedal edema or cyanosis. SKIN: Normal skin appearance. NEUROLOGIC: Alert and oriented x4. PSHYCHIATRIC: Appropriate affect, mood normal, behavior normal, intact thought and speech. LABORATORY DATA: I have personally reviewed and interpreted each of the patient?s relevant lab tests, abnormal findings are below: Date 08/21/24 ??WHITE?BLOOD?COUNT?(Thou/mm3) 10.0 ??RED?BLOOD?COUNT?(Miln/mm3) 4.43?L ??HEMOGLOBIN?(gm/dl) 13.5 ??HEMATOCRIT?(%) 41.6 ??PLATELET?COUNT?(Thou/mm3) 326 ??NEUTROPHILS?%,?AUTO?(%) 68 ??LYMPH?%,?AUTO?(%) 20 ??NEUTROPHILS,?AUTO?(Thou/mm3) 6.8 ??GLUCOSE,RANDOM?(mg/dL) 129?H ??BLOOD?UREA?NITROGEN?(mg/dL) 20 ??CREATININE?(mg/dL) 0.90 ??SODIUM?(mmol/L) 140 ??POTASSIUM?(mmol/L) 4.5 ??CHLORIDE?(mmol/L) 102 ??CrCl?(CandG)?(ml/min) 123.13 ??AST/SGOT?(Unit/L) 16 ??ALT/SGPT?(Unit/L) 25 ??ALKALINE?PHOSPHATASE?(Unit/L) 91 ??BILIRUBIN,?TOTAL?(mg/dL) 0.9 ??PROTEIN?TOTAL?(gm/dl) 7.4 ??ALBUMIN,?SERUM?(gm/dl) 4.4 ??GLOBULIN?(gm/dl) 3.0 ??ALBUMIN/GLOBULIN?RATIO 1.5 ??CALCIUM,?SERUM?(mg/dL) 9.2 ??CALCIUM?SERUM?(CORRECTED)?(mg/dL) 9.2 ??CEA?(O*)?(ng/ml) 1.0 ASSESSMENT/PLAN: Assessment and Plan: Osmin Leggett, a 54-year-old male, presents with stage 3A colon cancer (T2N1M0) diagnosed via colonoscopy and confirmed by sigmoid colectomy, with a history of rectal bleeding, fatigue, and constipation. Stage 3A Colon Cancer (T2N1M0) Assessment: Patient was diagnosed with colon cancer following a lower GI colonoscopy on 07-08-2024, which revealed a tumor in the rectosigmoid junction. Biopsies confirmed invasive adenocarcinoma, well-differentiated, with no loss of expression. Sigmoid colectomy performed on 07-10-2024 showed a 3.1 x 3 x 0.7 cm invasive adenocarcinoma in the sigmoid region, with negative margins. Pathology revealed a well-differentiated grade one tumor with lymphovascular invasion present, no perineural invasion, and 1 of 22 lymph nodes positive for cancer. Chest, abdomen, and pelvis imaging showed no interval metastatic disease. Final staging is T2N1M0, classified as stage 3A cancer. Plan: - Initiate 3-month chemotherapy regimen - Oral chemotherapy tablets at home - Intravenous infusion every 2 weeks (port already placed) - Provide patient education: - Drink plenty of water and stay hydrated - Avoid heavy lifting - Use magic mouthwash to prevent mouth pain during chemotherapy - Dietary modifications: avoid red meat (especially beef and pork), limit tortillas to maximum three per day, increase protein intake (chicken and fish allowed), increase vegetable and fruit consumption - Reduce overall food intake to half of previous portions - Maintain personal hygiene, including daily showers and oral care - Engage in light physical activity: morning and evening walks - Avoid contact with sick individuals - Take prescribed anti-nausea medication as directed - Monitor for chemotherapy side effects and potential complications - Advise patient to inform healthcare team early if experiencing illness or poor oral intake - Recommend work modifications: light duties only, no heavy lifting, increased standing time - Follow-up in 3 months or sooner if complications arise Post-operative Umbilical Hernia Repair Assessment: Patient underwent umbilical hernia repair concurrent with sigmoid colectomy on 07-10-2024. The surgical site is still healing, and there is a risk of recurrence or development of new hernias. Plan: - Advise patient to avoid heavy lifting, especially from the floor, for 3-4 months post-surgery - Educate on proper lifting techniques to reduce abdominal pressure - Encourage weight loss through dietary modifications to reduce pressure on the abdominal wall - Monitor for signs of hernia recurrence or new hernia development ORDERS: Order # Description [id number] CBC + Comprehensive Metabolic Panel + [facility] [id number] Lab Appointment [id number] Follow Up Appointment [id number] CBC + Comprehensive Metabolic Panel + [facility] [id number] Lab Appointment [id number] Follow Up Appointment [id number] CBC + Comprehensive Metabolic Panel + [facility] [id number] Lab Appointment [id number] Follow Up Appointment RETURN TO CLINIC: BILLING AND COMPLIANCE: I reviewed external records from providers outside my specialty as summarized above. I spent a total of 50 minutes on this patient?s care on the day of their visit excluding time spent related to any billed procedures. This time includes time spent with the patient as well as time spent documenting in the medical record, reviewing patients records and tests, obtaining history, placing orders, communicating with other healthcare professionals, counseling the patient, family or caregiver, and/or care coordination for the diagnoses above. Electronically Signed by: Isaiah Sue MD T: 5:13 PM CC: Marisol?Alberto,? PCP: Marisol Dominguez Referring: Marisol Dominguez This document was completed utilizing speech recognition software. Grammatical errors, random word insertions, pronoun errors, and incomplete sentences are an occasional consequence of this system due to software limitations, ambient noise, and hardware issues. Any formal questions or concerns about the content, text or information contained within the body of this dictation should be directly addressed to the provider for clarification.
== END 2024-09-06 23:59 | disposition home or self-care (01) ==
LOC: SCTC 08:43
PROVIDERS: PCP Nurse Practitioner Primary Care; Referring Provider Nurse Practitioner Primary Care; Visit Provider Internal Medicine Hematology & Oncology
DX: C19 Malignant neoplasm of rectosigmoid junction (principal); Z90.49 Acquired absence of other specified parts of digestive tract
CPT/HCPCS: 99213; G0463

== ENCOUNTER → 2024-10-03 | Outpatient (CLI) | payer MEDICARE, MEDICAID, SELFPAY ==
[2024-10-03 08:22] LABS: Basophils % (Auto) 1 % (0-2.5); Eosinophils # (Auto) 0.2 Thou/mm3 (0.0-0.5); Eosinophils % (Auto) 2 % (0-10); Hematocrit 42.1 % (41.0-53.0); Immature Granulocytes % (Auto) 0 % (0-0); Immature Granulocytes Auto 0.03 Thou/mm3 (0.00-0.00); Lymphocytes # (Auto) 2.2 Thou/mm3 (1.0-4.8); Lymphocytes % (Auto) 31 % (10-50); Mean Corpuscular HGB Conc 33.3 g/dl (31.0-37.0); Mean Corpuscular Volume 90 fL (80-100); Monocytes # (Auto) 0.7 Thou/mm3 (0.0-0.8); Monocytes % (Auto) 10 % (0-12); Neutrophils # (Auto) 3.9 Thou/mm3 (1.8-7.7); Neutrophils % (Auto) 55 % (37-80); Nucleated Red Blood Cell % 0 /100 WBC (0); Platelet Count 298 Thou/mm3 (140-440); RDW Standard Deviation 44.9 fL (35.1-43.9); Red Blood Count 4.67 Miln/mm3 (4.50-5.90); White Blood Count 7.1 Thou/mm3 (3.8-10.6)
[2024-10-03 08:41] LABS: Alanine Aminotransferase 29 U/L (10-49); Albumin, Serum 4.3 gm/dL (3.5-5.0); Albumin/Globulin Ratio 1.7 (1.2-2.2); Alkaline Phosphatase 94 U/L (46-116); Anion Gap 8 (7-16); Aspartate Amino Transferase 17 U/L (0-34); BUN/Creatinine Ratio 10 Ratio (12-20); Bilirubin,Total 0.5 mg/dL (0.3-1.2); Blood Urea Nitrogen 8 mg/dL (9-23); Calcium 9.2 mg/dL (8.3-10.6); Calcium (Corrected) 9.2 mg/dL (8.5-10.1); Carcinoembryonic Antigen 1.6 ng/mL (0.0-5.0); Chloride 102 mMol/L (98-107); Creatinine (Component) 0.8 mg/dL (0.6-1.3); Globulin 2.6 gm/dL (2.3-3.5); Glucose 141 mg/dL (74-106); Osmolality,Calculated 281 (275-295); Potassium 4.8 mMol/L (3.4-5.1); Sodium 141 mMol/L (136-145); Total Protein 6.9 gm/dL (5.7-8.2); eGFR > 60 See Note
== END | disposition home or self-care (01) ==
LOC: SCTO 06:45
PROVIDERS: PCP Nurse Practitioner Primary Care; Referring Provider Radiology Therapeutic Radiology; Visit Provider Radiology Therapeutic Radiology
DX: C18.7 Malignant neoplasm of sigmoid colon (principal)
CPT/HCPCS: 36415; 80053; 82378; 85025

== ENCOUNTER 2024-10-06 11:37 | Outpatient (RCR) | payer MEDICARE, MEDICAID, SELFPAY ==
[2024-09-19 11:10] LABS: Basophils # (Auto) 0.1 Thou/mm3 (0.0-0.2); Basophils % (Auto) 1 % (0-2.5); Eosinophils # (Auto) 0.1 Thou/mm3 (0.0-0.5); Eosinophils % (Auto) 2 % (0-10); Hematocrit 43.8 % (41.0-53.0); Hemoglobin 14.4 g/dL (13.5-16.0); Immature Granulocytes % (Auto) 0 % (0-0); Immature Granulocytes Auto 0.02 Thou/mm3 (0.00-0.00); Lymphocytes # (Auto) 2.3 Thou/mm3 (1.0-4.8); Lymphocytes % (Auto) 29 % (10-50); Mean Corpuscular HGB Conc 32.9 g/dl (31.0-37.0); Mean Corpuscular Hemoglobin 29.8 pg (25.0-35.0); Mean Corpuscular Volume 91 fL (80-100); Monocytes # (Auto) 0.7 Thou/mm3 (0.0-0.8); Monocytes % (Auto) 9 % (0-12); Neutrophils # (Auto) 4.6 Thou/mm3 (1.8-7.7); Neutrophils % (Auto) 59 % (37-80); Nucleated Red Blood Cell % 0 /100 WBC (0); Platelet Count 259 Thou/mm3 (140-440); RDW Standard Deviation 45.9 fL (35.1-43.9); Red Blood Count 4.83 Miln/mm3 (4.50-5.90); White Blood Count 7.8 Thou/mm3 (3.8-10.6)
[2024-09-19 11:34] LABS: Alanine Aminotransferase 26 U/L (10-49); Albumin, Serum 4.4 gm/dL (3.5-5.0); Albumin/Globulin Ratio 1.6 (1.2-2.2); Alkaline Phosphatase 94 U/L (46-116); Anion Gap 12 (7-16); Aspartate Amino Transferase 20 U/L (0-34); BUN/Creatinine Ratio 14 Ratio (12-20); Blood Urea Nitrogen 14 mg/dL (9-23); Calcium 9.3 mg/dL (8.3-10.6); Calcium (Corrected) 9.3 mg/dL (8.5-10.1); Carbon Dioxide 26.9 mMol/L (20.0-31.0); Chloride 101 mMol/L (98-107); Globulin 2.7 gm/dL (2.3-3.5); Glucose 133 mg/dL (74-106); Osmolality,Calculated 281 (275-295); Potassium 3.6 mMol/L (3.4-5.1); Sodium 140 mMol/L (136-145); Total Protein 7.1 gm/dL (5.7-8.2); eGFR > 60 See Note
[2024-09-19 11:35] LABS: Carcinoembryonic Antigen 1.2 ng/mL (0.0-5.0)
--- NOTE | 2024-10-06 12:47 | CTCFLWUP_ITS ---
Patient: DONNA ROSALES : 1970 Page 2 of 2 FOLLOW UP NOTE DATE OF SERVICE: 10/06/2024 NAME: DONNA ROSALES ACCOUNT: [id number] : 1970 AGE: 54 INTERVAL HISTORY: Patient is on CapeOx chemotherapy and doing well. Patient has gained another 5 pounds of weight since starting chemotherapy. Patient have no complaints of nausea vomiting or intolerance to treatment ONCOLOGY HISTORY: DIAGNOSIS: Malignant neoplasm of sigmoid colon [ICD10] C18.7 DATE OF DIAGNOSIS: 07/10/2024 STAGE/TNM: Stage 3 A TREATMENT HISTORY: Care?Plan Start?Date Cycle Day Intent CapOX?adj?T3N1?3mon?4?cycles 08/26/2024 1 21 Curative?(primary) HISTORY OF PRESENT ILLNESS: Subjective: Chief Complaint Blood in stool for 3 months, fatigue, constipation, dizziness, change in stool caliber 5-6 months ago History of Present Illness Osmin Leggett is a 54-year-old male presenting for follow-up of recently diagnosed and treated colon cancer. The patient reports a history of blood in the stool, fatigue, constipation, and dizziness starting approximately 3 months ago. The patient first noticed changes in his stool caliber about 5-6 months ago. This was followed by the onset of blood in the stool approximately 3 months ago, accompanied by fatigue, constipation, and occasional dizziness. A lower GI colonoscopy performed on 07-08-2024 revealed colon cancer in the rectosigmoid junction, along with 3 polyps in the sigmoid colon. Biopsies confirmed invasive adenocarcinoma in the rectal area. On 07-10-2024, the patient underwent sigmoid colectomy and umbilical hernia repair. Pathology revealed a 3.1 x 3 x 0.7 cm well-differentiated grade one tumor with lymphovascular invasion and one positive lymph node out of 22 removed. The final staging was T2N1M0, stage 3A cancer. The patient is now preparing to start chemotherapy, with a preference for taking tablets at home and receiving infusions every two weeks. A port has already been placed for this purpose. He has been advised to make significant lifestyle changes, including dietary modifications, increased hydration, and avoiding heavy lifting. The patient owns a small store and has been instructed to remain active but avoid prolonged sitting and heavy lifting to prevent complications such as blood clots and hernia recurrence. Medications and Supplements - Magic mouthwash - Used to prevent mouth pain during chemotherapy. - Expensive. Review of Systems General: Positive for fatigue. Gastrointestinal: Positive for constipation, blood in stool, change in stool caliber. Neurological: Positive for dizziness. Objective: Laboratory, Imaging, and Diagnostic Test Results - Lower GI colonoscopy (07/08/2024): - Colon cancer in rectosigmoid junction - 3 polyps in sigmoid colon - Inflammation in stomach - Biopsies: - Rectal area: Invasive adenocarcinoma, well-differentiated, no loss of expression - Stomach: Negative - Colon polyps: Adenoma, non-cancerous, negative for high-grade dysplasia malignancy - No cancer in colon - Chest, abdomen, pelvis imaging: No interval metastatic disease - Hemoglobin: Good (specific value not provided) - Bile: Normal - Sigmoid colectomy pathology (07/10/2024): - Invasive adenocarcinoma in sigmoid region - Negative margins - Tumor size: 3.1 x 3 x 0.7 cm - No macroscopic tumor perforation - Well-differentiated grade one tumor - Lymphovascular invasion present - No perineural invasion - 1 of 22 lymph nodes positive for cancer - Final stage: T2N1M0 (stage 3A cancer) OTHER MEDICAL HISTORY/CONDITIONS: Invasive adenocarcinoma - dx 07/08/24 Diabetes HTN Hyperlipidemia BPH Port placement - 08/22/24 Exp Lap Sigmoid colectomy and coloproctostomy and umbilical hernia repair - 07/10/24 - Dr. 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 Tobacco Use:?Quit 20yrs ago - Smoked 1-2yrs 3 cigarettes/day ETOH Use:?Stopped recenlty- Drank 4 beers 2-3x/week for 40yrs Drug?Note:?Denies Social?History?Note:?Lives?with? MEDICATIONS: 1. acyclovir - 400 mg Twice a Day 2. atorvastatin - 20 mg Daily 3. capecitabine - 500 mg 4 tab twice a day 4. Compazine - 5 mg 1 tab as needed 5. empagliflozin-metformin - 12.5-500 mg 1 tab Daily 6. Flomax - 0.4 mg Daily 7. Lidocaine Viscous - 2 % 10 mL as needed 8. Maalox Advanced - 200-200-20 mg/5 mL 20 mL as needed 9. Norvasc - 5 mg Daily 10. nystatin - 100,000 unit/mL 10 mL as needed 11. ondansetron - 8 mg 1 tab as needed 12. valsartan-hydrochlorothiazide - 160-25 mg 1 tab Daily Medications Last Reconciled by Azucena Garza MA on 10/06/2024 ALLERGIES: No Known Drug Allergies; No Known Allergies REVIEW OF SYSTEMS: A complete 14-point review of systems was performed and is negative except as noted in interval history. PHYSICAL EXAMINATION: VITAL SIGNS: Temperature?97.5, B/P?135/93, Oxygen?Saturation?97% Weight?300?lbs (Change?since?09/22/24:?-2?lbs) PAIN: 0 - No pain ECOG Performance Status: 0 - Asymptomatic and fully active GENERAL APPEARANCE: Appears well, in no apparent distress, appropriately interactive. HEENT: Normocephalic, no temporal wasting, normal conjunctiva, no scleral icterus, normal hearing, lips without lesions, neck normal range of motion. CARDIOVASCULAR: Not assessed. PULMONARY: Normal respiratory effort, no respiratory distress or use of accessory muscles, speaking in full sentences, no tachypnea. EXTREMITIES: No pedal edema or cyanosis. SKIN: Normal skin appearance. NEUROLOGIC: Alert and oriented x4. PSHYCHIATRIC: Appropriate affect, mood normal, behavior normal, intact thought and speech. LABORATORY DATA: I have personally reviewed and interpreted each of the patient?s relevant lab tests, abnormal findings are below: Date 09/19/24 10/03/24 ??WHITE?BLOOD?COUNT?(Thou/mm3) 7.8 7.1 ??RED?BLOOD?COUNT?(Miln/mm3) 4.83 4.67 ??HEMOGLOBIN?(gm/dl) 14.4 14.0 ??HEMATOCRIT?(%) 43.8 42.1 ??PLATELET?COUNT?(Thou/mm3) 259 298 ??NEUTROPHILS?%,?AUTO?(%) 59 55 ??LYMPH?%,?AUTO?(%) 29 31 ??NEUTROPHILS,?AUTO?(Thou/mm3) 4.6 3.9 ??GLUCOSE,RANDOM?(mg/dL) ? 141?H ??BLOOD?UREA?NITROGEN?(mg/dL) ? 8?L ??CREATININE?(mg/dL) ? 0.80 ??SODIUM?(mmol/L) ? 141 ??POTASSIUM?(mmol/L) ? 4.8 ??CHLORIDE?(mmol/L) ? 102 ??CrCl?(CandG)?(ml/min) ? 142.04 ??AST/SGOT?(Unit/L) ? 17 ??ALT/SGPT?(Unit/L) ? 29 ??ALKALINE?PHOSPHATASE?(Unit/L) ? 94 ??BILIRUBIN,?TOTAL?(mg/dL) ? 0.5 ??PROTEIN?TOTAL?(gm/dl) ? 6.9 ??ALBUMIN,?SERUM?(gm/dl) ? 4.3 ??GLOBULIN?(gm/dl) ? 2.6 ??ALBUMIN/GLOBULIN?RATIO ? 1.7 ??CALCIUM,?SERUM?(mg/dL) ? 9.2 ??CALCIUM?SERUM?(CORRECTED)?(mg/dL) ? 9.2 ??CEA?(O*)?(ng/ml) ? 1.6 ASSESSMENT/PLAN: Assessment and Plan: Osmin Leggett, a 54-year-old male, presents with stage 3A colon cancer (T2N1M0) diagnosed via colonoscopy and confirmed by sigmoid colectomy, with a history of rectal bleeding, fatigue, and constipation. Stage 3A Colon Cancer (T2N1M0) Assessment: Patient was diagnosed with colon cancer following a lower GI colonoscopy on 07-08-2024, which revealed a tumor in the rectosigmoid junction. Biopsies confirmed invasive adenocarcinoma, well-differentiated, with no loss of expression. Sigmoid colectomy performed on 07-10-2024 showed a 3.1 x 3 x 0.7 cm invasive adenocarcinoma in the sigmoid region, with negative margins. Pathology revealed a well-differentiated grade one tumor with lymphovascular invasion present, no perineural invasion, and 1 of 22 lymph nodes positive for cancer. Chest, abdomen, and pelvis imaging showed no interval metastatic disease. Final staging is T2N1M0, classified as stage 3A cancer. Plan: -Continue CapeOx therapy as per plan Completed cycle 1 Will continue treatment for total 3 months - Provide patient education: - Drink plenty of water and stay hydrated - Avoid heavy lifting - Use magic mouthwash to prevent mouth pain during chemotherapy - Dietary modifications: avoid red meat (especially beef and pork), limit tortillas to maximum three per day, increase protein intake (chicken and fish allowed), increase vegetable and fruit consumption - Maintain personal hygiene, including daily showers and oral care - Engage in light physical activity: morning and evening walks - Take prescribed anti-nausea medication as directed - Monitor for chemotherapy side effects and potential complications - Advise patient to inform healthcare team early if experiencing illness or poor oral intake - Recommend work modifications: light duties only, no heavy lifting, increased standing time Follow-up in 4 weeks Post-operative Umbilical Hernia Repair Assessment: Patient underwent umbilical hernia repair concurrent with sigmoid colectomy on 07-10-2024. The surgical site is still healing, and there is a risk of recurrence or development of new hernias. Plan: - Advise patient to avoid heavy lifting, especially from the floor, for 3-4 months post-surgery - Educate on proper lifting techniques to reduce abdominal pressure - Encourage weight loss through dietary modifications to reduce pressure on the abdominal wall - Monitor for signs of hernia recurrence or new hernia development ORDERS: Order # Description [id number] Comprehensive Metabolic Panel - 12 + CBC with Auto Diff + [facility] + [id number] Follow Up 4 Week [id number] CBC + Comprehensive Metabolic Panel + [facility] [id number] Lab Appointment [id number] Follow Up Appointment [id number] CBC + Comprehensive Metabolic Panel + [facility] [id number] Lab Appointment [id number] Follow Up Appointment [id number] CBC + Comprehensive Metabolic Panel + [facility] [id number] Lab Appointment [id number] Follow Up Appointment RETURN TO CLINIC: I reviewed the diagnosis, prognosis, and recommended treatment/procedure options with the patient (and/or their legal sales representative sales manager), including the potential benefits, risks, side effects and alternative therapies. We also discussed the option of no treatment and the possibility of clinical trial participation, if applicable. All questions were addressed, and they demonstrated understanding. They provided informed consent to proceed with the proposed plan of care. BILLING AND COMPLIANCE: I reviewed external records from providers outside my specialty as summarized above. I spent a total of 50 minutes on this patient?s care on the day of their visit excluding time spent related to any billed procedures. This time includes time spent with the patient as well as time spent documenting in the medical record, reviewing patients records and tests, obtaining history, placing orders, communicating with other healthcare professionals, counseling the patient, family or caregiver, and/or care coordination for the diagnoses above. Electronically Signed by: Isaiah Sue MD T: 12:45 PM CC: Marisol?Alberto? PCP: Marisol Dominguez Referring: Marisol Dominguez This document was completed utilizing speech recognition software. Grammatical errors, random word insertions, pronoun errors, and incomplete sentences are an occasional consequence of this system due to software limitations, ambient noise, and hardware issues. Any formal questions or concerns about the content, text or information contained within the body of this dictation should be directly addressed to the provider for clarification.
== END 2024-10-06 23:59 | disposition home or self-care (01) ==
LOC: SCTC 11:37
PROVIDERS: PCP Nurse Practitioner Primary Care; Referring Provider Nurse Practitioner Primary Care; Visit Provider Internal Medicine Hematology & Oncology
DX: Z51.11 Encounter for antineoplastic chemotherapy (principal); C18.7 Malignant neoplasm of sigmoid colon; Z90.49 Acquired absence of other specified parts of digestive tract
CPT/HCPCS: 36591; 80053; 82378; 84450; 85025; 96367; 96413; 96415; 99212; 99424; 99425; A4216; J1100; J1453; J1642; J2405; J7050; J7060; J9263; G0463

== ENCOUNTER → 2024-11-07 | Outpatient (BNVA) | payer MEDICARE, MEDICAID, SELFPAY | END | disposition home or self-care (01) | PROVIDERS: PCP Nurse Practitioner Primary Care; Referring Provider Nurse Practitioner Primary Care; Visit Provider Urology | DX: N40.1 Benign prostatic hyperplasia with lower urinary tract symptoms (principal); N13.8 Other obstructive and reflux uropathy; I10 Essential (primary) hypertension; E66.01 Morbid (severe) obesity due to excess calories; Z71.3 Dietary counseling and surveillance; Z68.41 Body mass index [BMI] 40.0-44.9, adult; C18.9 Malignant neoplasm of colon, unspecified; Z90.49 Acquired absence of other specified parts of digestive tract; E78.00 Pure hypercholesterolemia, unspecified | CPT/HCPCS: 81003; 99212; G0463 ==

== ENCOUNTER 2024-12-04 04:03 | Emergency (ER) | payer MEDICARE, MEDICAID, SELFPAY ==
[2024-12-04 04:03] VITALS: BMI 43.0
[2024-12-04 04:06] VITALS: BP 164/101; BP 179/114; PULSE 64; RESP 20; TEMP 36.8; O2SAT 95
--- NOTE | 2024-12-04 04:25 | XR_ITS ---
Examination: CT brain head without contrast. 2-D sagittal coronal reconstructions Date and time of exam:November 26, 2024, 0543 hours INDICATIONS: Headaches nausea vomiting and fever chills beginning 2 days ago, recent diagnosis malignant neoplasm of the colon, undergoing chemotherapy CTDI: vol (mGy):50.4 DLP: (mGycm):7 Technique: Multiple CT axial sections of the brain have been obtained, 5 mm slice thickness. Contrast has not been administered. 2-D sagittal, coronal reconstructions have been obtained Low dose protocols were performed. One or more of the following dose reduction techniques were used; automated exposure control, adjustment of the mA and/or KV according to patient size, use of iterative reconstruction technique. Findings: No significant ventricular enlargement. Intra-axial or extra-axial hemorrhage density is not seen. No mass effect or midline shift Basal cisterns are not remarkable. Fourth ventricle is midline. Cranial vault diffusely sclerotic Impression: Negative for acute hemorrhage, mass effect or midline shift Cranial vault diffusely sclerotic, clinical correlation advised If osseous metastatic disease is a clinical consideration, suggest full body bone scan follow-up
--- NOTE | 2024-12-04 04:26 | EDRME_ITS ---
Rapid Medical Screening Exam [facility], [facility] Arrival date/time: 12/04/24 04:03 54M with recently diagnosis of colon cancer (chemo last week) presents to ED with 2 days of MONROY, N/V, and light sensitivity. with him denies abnormal behavior and speech. Patient also has some fevers/chills. Chief Complaint: Headache Vital signs: Vital Signs Temperature 98.2 F 12/04/24 04:06 Pulse Rate 64 12/04/24 04:06 Respiratory Rate 20 12/04/24 04:06 Blood Pressure 179/114 H 12/04/24 04:06 Pulse Oximetry (%) 95 12/04/24 04:06
[2024-12-04] MEDS: SUMAtriptan INJ 6 MG/0.5 ML VIAL SC (05:07)
[2024-12-04] MEDS: METOCLOPRAMIDE 5 MG TABLET 10 MG PO (05:07)
[2024-12-04 05:22] LABS: Lactate (Lactic Acid) 1.4 mMol/L (0.4-2.0)
[2024-12-04 05:24] LABS: Basophils # (Auto) 0.0 Thou/mm3 (0.0-0.2); Basophils % (Auto) 0 % (0-2.5); Eosinophils # (Auto) 0.1 Thou/mm3 (0.0-0.5); Eosinophils % (Auto) 2 % (0-10); Hematocrit 40.2 % (41.0-53.0); Hemoglobin 13.4 g/dL (13.5-16.0); Immature Granulocytes Auto 0.04 Thou/mm3 (0.00-0.00); Lymphocytes # (Auto) 1.9 Thou/mm3 (1.0-4.8); Lymphocytes % (Auto) 24 % (10-50); Mean Corpuscular HGB Conc 33.3 g/dl (31.0-37.0); Mean Corpuscular Hemoglobin 30.9 pg (25.0-35.0); Mean Corpuscular Volume 93 fL (80-100); Monocytes # (Auto) 1.1 Thou/mm3 (0.0-0.8); Monocytes % (Auto) 14 % (0-12); Neutrophils # (Auto) 4.5 Thou/mm3 (1.8-7.7); Neutrophils % (Auto) 59 % (37-80); Nucleated Red Blood Cell # 0.00 Thou/mm3 (0.00-0.00); Nucleated Red Blood Cell % 0 /100 WBC (0); Platelet Count 184 Thou/mm3 (140-440); RDW Standard Deviation 56.3 fL (35.1-43.9); Red Blood Count 4.34 Miln/mm3 (4.50-5.90); White Blood Count 7.6 Thou/mm3 (3.8-10.6)
[2024-12-04 06:16] LABS: Alanine Aminotransferase 19 U/L (10-49); Albumin, Serum 4.3 gm/dL (3.5-5.0); Albumin/Globulin Ratio 1.7 (1.2-2.2); Alkaline Phosphatase 109 U/L (46-116); Anion Gap 11 (7-16); Aspartate Amino Transferase 19 U/L (0-34); BUN/Creatinine Ratio 13 Ratio (12-20); Bilirubin,Total 0.7 mg/dL (0.3-1.2); Blood Urea Nitrogen 10 mg/dL (9-23); Calcium 9.8 mg/dL (8.3-10.6); Calcium (Corrected) 9.8 mg/dL (8.5-10.1); Carbon Dioxide 24.8 mMol/L (20.0-31.0); Chloride 103 mMol/L (98-107); Creatinine (Component) 0.8 mg/dL (0.6-1.3); Estimated Creatinine Clearance 143.3 mL/min (>60); Globulin 2.5 gm/dL (2.3-3.5); Glucose 176 mg/dL (74-106); Osmolality,Calculated 280 (275-295); Potassium 3.7 mMol/L (3.4-5.1); Procalcitonin < 0.04 ng/ml (0.0-0.49); Sodium 139 mMol/L (136-145); Total Protein 6.8 gm/dL (5.7-8.2); eGFR > 60 See Note
[2024-12-04 08:05] VITALS: BP 149/74; BP 179/114; PULSE 57; RESP 16; TEMP 36.7; O2SAT 95
[2024-12-04] MEDS: ONDANSETRON ODT 4 MG TABRAP PO (08:07)
[2024-12-04] MEDS: KETOROLAC INJ 60 MG/2 ML VIAL IM (08:08)
--- NOTE | 2024-12-04 08:34 | PD.EDHA ---
ED Headache RME/HPI General Chief Complaint: Headache Stated Complaint: HEADACHE Time Seen by Provider: 12/04/24 08:34 Arrival date/time: 12/04/24 04:03 54M with recently diagnosis of colon cancer (chemo last week) presents to ED with 2 days of MONROY, N/V, and light sensitivity. with him denies abnormal behavior and speech. Limitations: no limitations RME / HPI RME / HPI Narrative: 12/04/24 04:03 54M with recently diagnosis of colon cancer (chemo last week) presents to ED with 2 days of MONROY, N/V, and light sensitivity. with him denies abnormal behavior and speech. Patient also has some fevers/chills. Related Data Home Medications ?Medication ?Instructions ?Recorded ?Confirmed valsartan 160 1 tab PO QDAY 04/26/23 11/07/24 mg-hydrochlorothiazide 12.5 mg tablet tamsulosin 0.4 mg capsule 0.4 mg PO QHS 06/20/24 11/07/24 acyclovir 400 mg tablet 400 mg PO BID 07/08/24 11/07/24 amlodipine 5 mg tablet 5 mg PO QDAY 07/08/24 11/07/24 atorvastatin 20 mg tablet 20 mg PO HS 07/08/24 11/07/24 empagliflozin 12.5 mg-metformin 1 tab PO QDAY 07/08/24 11/07/24 500 mg tablet (Synjardy) brimonidine 0.2 %-timolol 0.5 % 1 drp ophthalmic (eye) BID 07/09/24 11/07/24 eye drops latanoprost 0.005 % eye drops 1 drp ophthalmic (eye) HS 07/09/24 11/07/24 prednisolone acetate 1 % eye 1 drp ophthalmic (eye) Q12H 07/09/24 11/07/24 drops,suspension Previous Rx's ?Medication ?Instructions ?Recorded hydrocodone 10 mg-acetaminophen 1 tab PO Q6H PRN pain #14 tabs 08/22/24 325 mg tablet hydrocodone 5 mg-acetaminophen 325 1 tab PO BID PRN pain #10 tabs 12/04/24 mg tablet ibuprofen 800 mg tablet 800 mg PO TID PRN pain #30 tabs 12/04/24 Allergies Allergy/AdvReac Type Severity Reaction Status Date / Time No Known Allergies Allergy Verified 12/04/24 04:05 Review of Systems Review of Systems Systems Reviewed: All systems reviewed, normal except as documented Constitutional Constitutional: Reports system reviewed and no additional complaints, except as documented, Denies fever(s) and Reports headache(s) Eyes Eyes: Reports system reviewed and no additional complaints, except as documented and Denies blurry vision ENT Ears, Nose, Mouth, and Throat: Reports system reviewed and no additional complaints, except as documented, Reports headache(s), Denies nasal congestion and Denies nasal discharge Cardiovascular Cardiovascular: Reports system reviewed and no additional complaints, except as documented, Denies chest pain and Denies dyspnea Respiratory Respiratory: Reports system reviewed and no additional complaints, except as documented, Denies chest congestion, Denies cough and Denies dyspnea Gastrointestinal Gastrointestinal: Reports system reviewed and no additional complaints, except as documented and Denies abdominal pain Integumentary/Breasts Skin/Breast: Reports system reviewed and no additional complaints, except as documented and Denies rash Neurologic Neurologic: Reports system reviewed and no additional complaints, except as documented, Reports as per HPI and Reports headache(s) Past Medical History Past Medical History NEUROLOGIC: Negative Neurological Disorders or Seizures CARDIAC: Positive Hypercholesterolemia and Hypertension; Negative Cardiac Disorders or Congestive Heart Failure RESPIRATORY: Negative Chronic Obstructive Pulmonary Disease (COPD) or Asthma GASTROINTESTINAL: Positive Colorectal Cancer and Obesity; Negative Gastrointestinal Disorders or Hepatitis GENITOURINARY: Positive Benign Prostatic Hyperplasia; Negative Genitourinary Disorders or Renal Disease REPRODUCTIVE: Negative Breast Cancer MUSCULOSKELETAL: Negative Musculoskeletal Disorders ENDOCRINE: Positive Endocrine Disorders (diabetes); Negative Diabetes Mellitus Type 1 or Diabetes Mellitus Type 2 HEMATOLOGIC: Negative Blood Disorders or Sickle Cell Disease OTHER HISTORY: Positive Hospitalization (colon resection) and Colorectal Cancer; Negative Autoimmune Disease, Blood Transfusions, Blood Transfusion Reaction, Anesthesia Reactions, Clostridium Difficile or Breast Cancer Family History FAMILY HISTORY: Positive Family Cardiac Disorders (hypertension mother) and Family Surgery; Negative Family Psychiatric Problems, Family Respiratory Disorders, Family Gastrointestinal Problems, Family Cancer or Family Anesthesia Reaction Surgical History SURGICAL: Positive Eye Surgery and Bowel Surgery (colon resection); Negative Cardiac Surgery, Endocrine Surgery, Abdominal Surgery, Nephrectomy, Joint Replacement, Neurologic Surgery or Mastectomy Social History SMOKING STATUS: Never smoker SECOND HAND EXPOSURE: No ED Exam General Limitations: Present no limitations General appearance: Present alert and in no apparent distress Head Head exam: Present atraumatic, normocephalic and normal inspection Eye Eye exam: Present normal appearance, PERRL and EOMI; Absent conjunctival injection or nystagmus ENT ENT exam: Present normal exam, normal oropharynx and mucous membranes moist Neck Neck exam: Present normal inspection, full ROM and trachea midline Chest Chest inspection: Present normal inspection and symmetric chest wall rise Respiratory Respiratory exam: Present normal lung sounds bilaterally; Absent respiratory distress or wheezes Cardiovascular Cardiovascular exam: Present regular rate, normal rhythm and normal heart sounds Abdominal Exam Abdominal exam: Present soft and normal bowel sounds; Absent distention, tenderness, guarding, rebound or rigidity Extremities Exam Extremities exam: Present normal inspection and full ROM Back Exam Back exam: Present normal inspection and full ROM Neurological Exam Neurological exam: Present alert, oriented X3, CN II-XII intact, normal gait, reflexes normal and other (No abnormal neurological findings); Absent motor sensory deficit Psychiatric Psychiatric exam: Present normal affect and normal mood Skin Skin exam: Present warm, dry, intact and normal color; Absent rash Course Quality Measures none Orders Category Date Time Status Bedside COVID-19 Antigen Test NOW Care 12/04/24 04:27 Completed Bedside Influenza A&B Antigen Test NOW Care 12/04/24 04:[address] head/brain wo con Stat Exams 12/04/24 04:25 Completed CBC Stat Lab 12/04/24 05:04 Completed CMP [Comprehensive Metabolic Panel] Stat Lab 12/04/24 05:04 Completed Lactate (Lactic Acid) Stat Lab 12/04/24 05:04 Completed Procalcitonin Stat Lab 12/04/24 05:04 Completed Ketorolac Inj [Toradol Inj] Med 12/04/24 07:53 Discontinued 60 mg IM X1 ONE Metoclopramide [Reglan] Med 12/04/24 04:25 Discontinued 10 mg PO X1 ONE Ondansetron Odt [Zofran Odt] Med 12/04/24 07:53 Discontinued 4 mg PO X1 ONE SUMAtriptan INJ [Imitrex Inj] Med 12/04/24 04:25 Discontinued 6 mg SC X1 ONE oxyCODONE/APAP 5/325 [Percocet 5/325] Med 12/04/24 07:53 Discontinued 1 tab PO X1 ONE Vital Signs Vital signs: Vital Signs Temperature 98.2 F 12/04/24 04:06 Pulse Rate 64 12/04/24 04:06 Respiratory Rate 20 12/04/24 04:06 Blood Pressure 179/114 H 12/04/24 04:06 Pulse Oximetry (%) 95 12/04/24 04:06 O2 saturation 95% room air within the limits Headache MDM Narrative MDM Narrative:: 54M with recently diagnosis of colon cancer (chemo last week) presents to ED with 2 days of MONROY, N/V, and light sensitivity. with him denies abnormal behavior and speech. On exam patient well-appearing patient does not appear ill or toxic patient hemodynamically stable At time my evaluation patient lab work and imaging has been completed The patient and his are currently in the conference room they have been there for some time and they report they would like to go home patient reports he would like some pain medication to go home with and some more pain medication here and like to go home Patient given pain meds here per the patient he does not want a wait any longer and he wants to leave now Patient is discharged home in no distress. Lab work and CT scan unremarkable 1725 PM patient has already ready been discharged I did call the patient to see how he is feeling patient reports that symptoms have significantly improved Patient data External records reviewed:: [facility] previous records Clinical information provided by:: patient Social determinants that could affect healthcare access:: none Patient has the following chronic illnesses:: See history How is presenting disease/condition affected by chronic disease/condition?: uneffected by Evaluation data The following diagnostics were reviewed and interpreted by me:: lab results and radiology exam(s) Lab and/or radiology exams considered but not ordered:: Labs radiology obtained Interpretation Summary: Reviewed by me Medications / Prescriptions Medications or Prescriptions considered but not ordered:: Given Medication administrations:: Medication Administration History Discontinued Medications Ketorolac Tromethamine (Ketorolac Inj 60 Mg/2 Ml Vial) 60 mg IM X1 ONE Stop: 12/04/24 07:54 Last Admin: 12/04/24 08:08 Dose: 60 mg Documented By: ED Metoclopramide HCl (Metoclopramide 5 Mg Tablet) 10 mg PO X1 ONE Stop: 12/04/24 04:26 Last Admin: 12/04/24 05:07 Dose: 10 mg Documented By: GB Ondansetron HCl (Ondansetron Odt 4 Mg Tabrap) 4 mg PO X1 ONE; Protocol Stop: 12/04/24 07:54 Last Admin: 12/04/24 08:07 Dose: 4 mg Documented By: ED Oxycodone/Acetaminophen (Oxycodone/Apap 5/325 Tablet) 1 tab PO X1 ONE Stop: 12/04/24 07:54 Last Admin: 12/04/24 08:07 Dose: 1 tab Documented By: ED Sumatriptan Succinate (Sumatriptan Inj 6 Mg/0.5 Ml Vial) 6 mg SC X1 ONE Stop: 12/04/24 04:26 Last Admin: 12/04/24 05:07 Dose: 6 mg Documented By: GB Given Consultations Consultation(s) initiated? (list below): No Diagnosis Differential diagnosis headache: migraine, tension headache and subarachnoid hemorrhage Most likely diagnosis given after review of the tests above:: Headache Admission Indicated Admission indicated?: not indicated Admission Request Was there a request for admission?: No Disposition Plan Disposition Plan: Discharge Discharge Attestation Discharge Attestation: The patient and all family members were given an opportunity to ask questions and understood the discharge instructions. Discharge instructions specifically effects, indications for sooner follow up or return to the emergency department, and the expected course of current diagnosis. Patient condition: Stable Discharge Plan Plan Patient Disposition: HOME (Self Care) Discharge Disposition comment: Stable Prescriptions/Referrals Prescriptions/Med Rec: New ibuprofen 800 mg tablet 800 mg PO TID PRN (Reason: pain) Qty: 30 0RF hydrocodone-acetaminophen 5-325 mg tablet 1 tab PO BID MDD 10 PRN (Reason: pain) Qty: 10 0RF No Action valsartan-hydrochlorothiazide 160-12.5 mg tablet 1 tab PO QDAY tamsulosin 0.4 mg capsule 0.4 mg PO QHS amlodipine 5 mg tablet 5 mg PO QDAY Patient Comments: TAKE ONE TABLET BY MOUTH EVERY DAY FOR BLOOD PRESSURE acyclovir 400 mg tablet 400 mg PO BID Patient Comments: TAKE ONE TABLET BY MOUTH TWICE DAILY atorvastatin 20 mg tablet 20 mg PO HS Patient Comments: TAKE ONE TABLET BY MOUTH EVERY DAY FOR CHOLESTEROL Synjardy 12.5-500 mg tablet 1 tab PO QDAY Patient Comments: TAKE ONE TABLET BY MOUTH TWICE DAILY FOR DIABETES hydrocodone-acetaminophen 10-325 mg tablet 1 tab PO Q6H MDD 4 PRN (Reason: pain) Qty: 14 0RF prednisolone acetate 1 % drops,suspension 1 drp OPHTHALMIC (EYE) Q12H Patient Comments: USE 1 DROP IN THE RIGHT EYE TWICE A DAY brimonidine-timolol 0.2-0.5 % drops 1 drp OPHTHALMIC (EYE) BID Patient Comments: USE 1 DROP IN THE RIGHT EYE TWICE DAILY latanoprost 0.005 % drops 1 drp OPHTHALMIC (EYE) HS Patient Comments: USE 1 DROP IN THE RIGHT EYE AT BEDTIME Referrals: Alberto (DARNELL),TERESA Damon [Primary Care Provider] - In 1 week Problem List Clinical Impression: Headache Patient/Caregiver Discharge Instructions Education Materials: Self-Care for Headaches Additional Instructions: Please follow up with your primary care doctor in the next 24-48hrs for any worsening symptoms return here immediately I encourage you to return for any worsening of symptoms Print Language: Yemeni Stand Alone Forms: Sudha Award Info., Patient Portal Info Letter RIAZ/TERESA Supervising Physician RIAZ/TERESA Supervising Physician: Dr. odell
== END 2024-12-04 09:00 | disposition home or self-care (01) ==
PROVIDERS: Physician Assistant; Emergency Provider Family Medicine; PCP Nurse Practitioner Primary Care
DX: R51.9 Headache, unspecified (principal)
CPT/HCPCS: 36415; 70450; 80053; 83605; 84145; 85025; 96372; 99283; J1885; J3030; Q0162; A9270

== ENCOUNTER → 2024-12-10 | Outpatient (CLI) | payer MEDICARE, MEDICAID, SELFPAY ==
--- NOTE | 2024-12-10 10:31 | XR_ITS ---
Examination: CT abdomen, without intravenous contrast. CT pelvis, without intravenous contrast. CT abdomen, with intravenous contrast. CT pelvis, with intravenous contrast. 2-D sagittal coronal reconstructions. Date and time of exam:March 11, 2025 1138 hours, comparison July 11, 2024 CT chest, CT abdomen June 21, 2019 INDICATIONS: Diagnosis malignant neoplasm sigmoid colon, restaging CTDI: vol (mGy) 51.9 DLP: (mGycm) 2641 Technique: Multiple 3.0 axial images of the abdomen and pelvis without intravenous contrast, 3.0 mm slice thickness. Multiple 3.0 postcontrast images abdomen and pelvis also obtained, post intravenous injection 60 cc [id number] 2-D sagittal and coronal reconstructions. Low dose protocols were performed. One or more of the following dose reduction techniques were used; automated exposure control, adjustment of the mA and/or KV according to patient size, use of iterative reconstruction technique. Findings: Mild enlargement cardiac contour. No interval liver lesions Cholelithiasis Spleen not enlarged No pancreatic mass. The adrenal glands are normal. Mild renal scar formation. Abdominal aorta normal size. No abdominal lymphadenopathy. Normal appendix. No pathologic pelvic lymphadenopathy Sutures in the sigmoid colon region No prostatomegaly Contracted urinary bladder Prominent osteopenia IMPRESSION: No interval metastatic disease
== END | disposition home or self-care (01) ==
LOC: SCAT 10:08
PROVIDERS: PCP Nurse Practitioner Primary Care; Referring Provider Internal Medicine Hematology & Oncology; Visit Provider Internal Medicine Hematology & Oncology
DX: C18.7 Malignant neoplasm of sigmoid colon (principal)
CPT/HCPCS: 74178; A4649; Q9967

== ENCOUNTER 2024-12-17 10:07 | Outpatient (RCR) | payer MEDICARE, MEDICAID, SELFPAY ==
[2024-12-11 12:02] LABS: Basophils # (Auto) 0.1 Thou/mm3 (0.0-0.2); Basophils % (Auto) 1 % (0-2.5); Eosinophils # (Auto) 0.1 Thou/mm3 (0.0-0.5); Eosinophils % (Auto) 2 % (0-10); Hematocrit 41.5 % (41.0-53.0); Hemoglobin 14.0 g/dL (13.5-16.0); Immature Granulocytes Auto 0.02 Thou/mm3 (0.00-0.00); Lymphocytes # (Auto) 1.9 Thou/mm3 (1.0-4.8); Lymphocytes % (Auto) 31 % (10-50); Mean Corpuscular HGB Conc 33.7 g/dl (31.0-37.0); Mean Corpuscular Hemoglobin 31.8 pg (25.0-35.0); Mean Corpuscular Volume 94 fL (80-100); Monocytes # (Auto) 0.8 Thou/mm3 (0.0-0.8); Monocytes % (Auto) 13 % (0-12); Neutrophils # (Auto) 3.4 Thou/mm3 (1.8-7.7); Neutrophils % (Auto) 54 % (37-80); Nucleated Red Blood Cell # 0.00 Thou/mm3 (0.00-0.00); Nucleated Red Blood Cell % 0 /100 WBC (0); Platelet Count 216 Thou/mm3 (140-440); RDW Standard Deviation 56.0 fL (35.1-43.9); Red Blood Count 4.40 Miln/mm3 (4.50-5.90); White Blood Count 6.2 Thou/mm3 (3.8-10.6)
[2024-12-11 12:25] LABS: Alanine Aminotransferase 23 U/L (10-49); Albumin, Serum 4.1 gm/dL (3.5-5.0); Albumin/Globulin Ratio 1.8 (1.2-2.2); Alkaline Phosphatase 94 U/L (46-116); Anion Gap 14 (7-16); Aspartate Amino Transferase 24 U/L (0-34); BUN/Creatinine Ratio 10 Ratio (12-20); Bilirubin,Total 0.8 mg/dL (0.3-1.2); Blood Urea Nitrogen 10 mg/dL (9-23); Calcium 9.6 mg/dL (8.3-10.6); Calcium (Corrected) 9.6 mg/dL (8.5-10.1); Carbon Dioxide 25.5 mMol/L (20.0-31.0); Carcinoembryonic Antigen 1.7 ng/mL (0.0-5.0); Chloride 102 mMol/L (98-107); Creatinine (Component) 1.0 mg/dL (0.6-1.3); Globulin 2.3 gm/dL (2.3-3.5); Glucose 173 mg/dL (74-106); Osmolality,Calculated 284 (275-295); Potassium 3.8 mMol/L (3.4-5.1); Sodium 141 mMol/L (136-145); Total Protein 6.4 gm/dL (5.7-8.2); eGFR > 60 See Note
--- NOTE | 2024-12-17 12:48 | CTCFLWUP_ITS ---
Patient: DONNA CONRAD : 1970 Page 3 of 5 FOLLOW UP NOTE DATE OF SERVICE: 12/17/2024 NAME: DONNA CONRAD ACCOUNT: [id number] : 1970 AGE: 54 INTERVAL HISTORY: Patient completed 3 months of treatment with [facility]. Tolerated treatment well. 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 He follows with ophthalmology. ONCOLOGY HISTORY: ONCOLOGY HISTORY: DIAGNOSIS: Malignant neoplasm of sigmoid colon [ICD10] C18.7 Malignant neoplasm of sigmoid colon [ICD10] C18.7 DATE OF DIAGNOSIS: 07/10/2024 STAGE/TNM: Stage IIIa TREATMENT HISTORY: Care?Plan Start?Date Cycle Day Intent CapOX?adj?T3N1?3mon?4?cycles 08/26/2024 1 21 Curative?(primary) HISTORY OF PRESENT ILLNESS: Subjective: Chief Complaint Blood in stool for 3 months, fatigue, constipation, dizziness, change in stool caliber 5-6 months ago History of Present Illness Osmin Leggett is a 54-year-old male presenting for follow-up of recently diagnosed and treated colon cancer. The patient reports a history of blood in the stool, fatigue, constipation, and dizziness starting approximately 3 months ago. The patient first noticed changes in his stool caliber about 5-6 months ago. This was followed by the onset of blood in the stool approximately 3 months ago, accompanied by fatigue, constipation, and occasional dizziness. A lower GI colonoscopy performed on 07-08-2024 revealed colon cancer in the rectosigmoid junction, along with 3 polyps in the sigmoid colon. Biopsies confirmed invasive adenocarcinoma in the rectal area. On 07-10-2024, the patient underwent sigmoid colectomy and umbilical hernia repair. Pathology revealed a 3.1 x 3 x 0.7 cm well-differentiated grade one tumor with lymphovascular invasion and one positive lymph node out of 22 removed. The final staging was T2N1M0, stage 3A cancer. The patient is now preparing to start chemotherapy, with a preference for taking tablets at home and receiving infusions every two weeks. A port has already been placed for this purpose. He has been advised to make significant lifestyle changes, including dietary modifications, increased hydration, and avoiding heavy lifting. The patient owns a small store and has been instructed to remain active but avoid prolonged sitting and heavy lifting to prevent complications such as blood clots and hernia recurrence. Medications and Supplements - Magic mouthwash - Used to prevent mouth pain during chemotherapy. - Expensive. Review of Systems General: Positive for fatigue. Gastrointestinal: Positive for constipation, blood in stool, change in stool caliber. Neurological: Positive for dizziness. Objective: Laboratory, Imaging, and Diagnostic Test Results - Lower GI colonoscopy (07/08/2024): - Colon cancer in rectosigmoid junction - 3 polyps in sigmoid colon - Inflammation in stomach - Biopsies: - Rectal area: Invasive adenocarcinoma, well-differentiated, no loss of expression - Stomach: Negative - Colon polyps: Adenoma, non-cancerous, negative for high-grade dysplasia malignancy - No cancer in colon - Chest, abdomen, pelvis imaging: No interval metastatic disease - Hemoglobin: Good (specific value not provided) - Bile: Normal - Sigmoid colectomy pathology (07/10/2024): - Invasive adenocarcinoma in sigmoid region - Negative margins - Tumor size: 3.1 x 3 x 0.7 cm - No macroscopic tumor perforation - Well-differentiated grade one tumor - Lymphovascular invasion present - No perineural invasion - 1 of 22 lymph nodes positive for cancer - Final stage: T2N1M0 (stage 3A cancer) OTHER MEDICAL HISTORY/CONDITIONS: Invasive adenocarcinoma - dx 07/08/24 Diabetes HTN Hyperlipidemia BPH Port placement - 08/22/24 Exp Lap Sigmoid colectomy and coloproctostomy and umbilical hernia repair - 07/10/24 - Dr. 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 Tobacco Use:?Quit 20yrs ago - Smoked 1-2yrs 3 cigarettes/day ETOH Use:?Stopped recenlty- Drank 4 beers 2-3x/week for 40yrs Drug?Note:?Denies Social?History?Note:?Lives?with? MEDICATIONS: 1. acyclovir - 400 mg Twice a Day 2. atorvastatin - 20 mg Daily 3. capecitabine - 500 mg 4 tab Twice a Day 4. Compazine - 5 mg 1 tab as needed 5. empagliflozin-metformin - 12.5-500 mg 1 tab Daily 6. Flomax - 0.4 mg Daily 7. Lidocaine Viscous - 2 % 10 mL as needed 8. Maalox Advanced - 200-200-20 mg/5 mL 20 mL as needed 9. Norvasc - 5 mg Daily 10. nystatin - 100,000 unit/mL 10 mL as needed 11. ondansetron - 8 mg 1 tab as needed 12. valsartan-hydrochlorothiazide - 160-25 mg 1 tab Daily Medications Last Reconciled by Ana Rosa Dominguez MD on 12/17/2024 ALLERGIES: No Known Drug Allergies; No Known Allergies REVIEW OF SYSTEMS: A complete 14-point review of systems was performed and is negative except as noted in interval history. PHYSICAL EXAMINATION: VITAL SIGNS: Temperature?98.1, B/P?145/69, Oxygen?Saturation?99% Weight?322?lbs (Change?since?12/11/24:?3.4?lbs) PAIN: 0 - No pain ECOG Performance Status: 0 - Asymptomatic and fully active GENERAL APPEARANCE: Appears well, in no apparent distress, appropriately interactive. HEENT: Normocephalic, no temporal wasting, normal conjunctiva, no scleral icterus, normal hearing, lips without lesions, neck normal range of motion. CARDIOVASCULAR: Not assessed. PULMONARY: Normal respiratory effort, no respiratory distress or use of accessory muscles, speaking in full sentences, no tachypnea. EXTREMITIES: No pedal edema or cyanosis. SKIN: Normal skin appearance. NEUROLOGIC: Alert and oriented x4. PSHYCHIATRIC: Appropriate affect, mood normal, behavior normal, intact thought and speech. LABORATORY DATA: I have personally reviewed and interpreted each of the patient?s relevant lab tests, abnormal findings are below: Date 12/04/24 12/11/24 ??WHITE?BLOOD?COUNT?(Thou/mm3) ? 6.2 ??RED?BLOOD?COUNT?(Miln/mm3) ? 4.40?L ??HEMOGLOBIN?(gm/dl) ? 14.0 ??HEMATOCRIT?(%) ? 41.5 ??PLATELET?COUNT?(Thou/mm3) ? 216 ??NEUTROPHILS?%,?AUTO?(%) ? 54 ??LYMPH?%,?AUTO?(%) ? 31 ??NEUTROPHILS,?AUTO?(Thou/mm3) ? 3.4 ??GLUCOSE,RANDOM?(mg/dL) 176?H 173?H ??BLOOD?UREA?NITROGEN?(mg/dL) 10 10 ??CREATININE?(mg/dL) 0.80 1.00 ??SODIUM?(mmol/L) 139 141 ??POTASSIUM?(mmol/L) 3.7 3.8 ??CHLORIDE?(mmol/L) 103 102 ??CrCl?(CandG)?(ml/min) 145.69 117.14 ??AST/SGOT?(Unit/L) 19 24 ??ALT/SGPT?(Unit/L) 19 23 ??ALKALINE?PHOSPHATASE?(Unit/L) 109 94 ??BILIRUBIN,?TOTAL?(mg/dL) 0.7 0.8 ??PROTEIN?TOTAL?(gm/dl) 6.8 6.4 ??ALBUMIN,?SERUM?(gm/dl) 4.3 4.1 ??GLOBULIN?(gm/dl) 2.5 2.3 ??ALBUMIN/GLOBULIN?RATIO 1.7 1.8 ??CALCIUM,?SERUM?(mg/dL) 9.8 9.6 ??CALCIUM?SERUM?(CORRECTED)?(mg/dL) 9.8 9.6 ??CEA?(O*)?(ng/ml) ? 1.7 ASSESSMENT/PLAN: Assessment and Plan: Osmin Leggett, a 54-year-old male, presents with stage 3A colon cancer (T2N1M0) diagnosed via colonoscopy and confirmed by sigmoid colectomy, with a history of rectal bleeding, fatigue, and constipation. Stage 3A Colon Cancer (T2N1M0) Assessment: Patient was diagnosed with colon cancer following a lower GI colonoscopy on 07-08-2024, which revealed a tumor in the rectosigmoid junction. Biopsies confirmed invasive adenocarcinoma, well-differentiated, with no loss of expression. Sigmoid colectomy performed on 07-10-2024 showed a 3.1 x 3 x 0.7 cm invasive adenocarcinoma in the sigmoid region, with negative margins. Pathology revealed a well-differentiated grade one tumor with lymphovascular invasion present, no perineural invasion, and 1 of 22 lymph nodes positive for cancer. Chest, abdomen, and pelvis imaging showed no interval metastatic disease. Final staging is T2N1M0, classified as stage 3A cancer. Completed [facility] for [address] scan with Mr. Conrad and is negative for metastatic disease Advised to continue following with GI for colonoscopies Plant-based diet advised RTC in 6 months CBC CEA eli testing ORDERS: Order # Description [id number] Comprehensive Metabolic Panel - 12 + CBC with Auto Diff + CEA [id number] Follow Up 6 Month RETURN TO CLINIC: I reviewed the diagnosis, prognosis, and recommended treatment/procedure options with the patient (and/or their legal access representative), including the potential benefits, risks, side effects and alternative therapies. We also discussed the option of no treatment and the possibility of clinical trial participation, if applicable. All questions were addressed, and they demonstrated understanding. They provided informed consent to proceed with the proposed plan of care. BILLING AND COMPLIANCE: I reviewed external records from providers outside my specialty as summarized above. I spent a total of 50 minutes on this patient?s care on the day of their visit excluding time spent related to any billed procedures. This time includes time spent with the patient as well as time spent documenting in the medical record, reviewing patients records and tests, obtaining history, placing orders, communicating with other healthcare professionals, counseling the patient, family or caregiver, and/or care coordination for the diagnoses above. Electronically Signed by: Isaiah Sue MD T: 12:46 PM CC: Lila? PCP: Isaiah Sue Referring: Isaiah Sue This document was completed utilizing speech recognition software. Grammatical errors, random word insertions, pronoun errors, and incomplete sentences are an occasional consequence of this system due to software limitations, ambient noise, and hardware issues. Any formal questions or concerns about the content, text or information contained within the body of this dictation should be directly addressed to the provider for clarification.
== END 2025-01-06 23:59 | disposition home or self-care (01) ==
LOC: SCTC 10:07
PROVIDERS: PCP Nurse Practitioner Primary Care; Referring Provider Internal Medicine Hematology & Oncology; Visit Provider Internal Medicine Hematology & Oncology
DX: C18.7 Malignant neoplasm of sigmoid colon (principal); Z90.49 Acquired absence of other specified parts of digestive tract
CPT/HCPCS: 36591; 80053; 82378; 85025; 99212; A4216; J1642; G0463

== ENCOUNTER 2025-02-19 07:50 | Outpatient (RCR) | payer MEDICARE, MEDICAID, SELFPAY | END 2025-03-08 23:59 | disposition home or self-care (01) | LOC: SCTC 07:50 | PROVIDERS: PCP Nurse Practitioner Primary Care; Referring Provider Nurse Practitioner Primary Care; Visit Provider Internal Medicine Hematology & Oncology | DX: C18.7 Malignant neoplasm of sigmoid colon (principal); Z90.49 Acquired absence of other specified parts of digestive tract | CPT/HCPCS: 36591; A4216; J1642 ==

== ENCOUNTER 2025-04-04 20:42 | Emergency (ER) | payer MEDICARE, MEDICAID, SELFPAY ==
--- NOTE | 2025-04-04 20:45 | EKG_ITS ---
[facility] (Formerly [facility]) Test Date: 2025-04-04 Pat Name: DONNA ROSALES Department: Room: - Gender: Male [employer]: : 1970 Requested By: ED Temporary Provider Order Number: [id number] Reading MD: ED Temporary Provider Measurements Intervals Corrigan Rate: 91 P: 15 AL: 163 QRS: -28 QRSD: 98 T: 49 QT: 345 QTc: 424 Interpretive Statements SINUS RHYTHM WITH FREQUENT VENTRICULAR PREMATURE COMPLEXES BORDERLINE LEFT AXIS DEVIATION [QRS AXIS < -20] NONSPECIFIC T-WAVE ABNORMALITY ABNORMAL RHYTHM ECG Compared to ECG 07/09/2024 16:46:25 Ventricular premature complex(es) now present T-wave abnormality now present Myocardial infarct finding no longer present /store/S0/[id number]/[id number].pdf
[2025-04-04 21:07] VITALS: BP 135/78; PULSE 78; RESP 22; TEMP 37.3; O2SAT 97
--- NOTE | 2025-04-04 21:17 | XR_ITS ---
EXAMINATION: AP chest single view TECHNIQUE: AP sitting chest single view Date and time: April 04, 2025, 2121 hours, comparison August 22, 2024 INDICATIONS: Shortness of breath chest pain today FINDINGS: Mild enlargement cardiac contour Mild prominence pulmonary vasculature Left subclavian Port-A-Cath tip satisfactory position No pneumonia or pulmonary edema IMPRESSION: Mild prominence pulmonary vasculature
[2025-04-04 21:46] LABS: Lactate (Lactic Acid) 2.1 mMol/L (0.4-2.0)
[2025-04-04 21:51] LABS: Basophils # (Auto) 0.0 Thou/mm3 (0.0-0.2); Basophils % (Auto) 0 % (0-2.5); Eosinophils # (Auto) 0.1 Thou/mm3 (0.0-0.5); Eosinophils % (Auto) 1 % (0-10); Hematocrit 46.7 % (41.0-53.0); Hemoglobin 15.6 g/dL (13.5-16.0); Immature Granulocytes Auto 0.03 Thou/mm3 (0.00-0.00); Lymphocytes # (Auto) 2.3 Thou/mm3 (1.0-4.8); Lymphocytes % (Auto) 27 % (10-50); Mean Corpuscular HGB Conc 33.4 g/dl (31.0-37.0); Mean Corpuscular Hemoglobin 31.6 pg (25.0-35.0); Mean Corpuscular Volume 95 fL (80-100); Monocytes # (Auto) 0.9 Thou/mm3 (0.0-0.8); Monocytes % (Auto) 10 % (0-12); Neutrophils # (Auto) 5.0 Thou/mm3 (1.8-7.7); Neutrophils % (Auto) 61 % (37-80); Nucleated Red Blood Cell # 0.00 Thou/mm3 (0.00-0.00); Nucleated Red Blood Cell % 0 /100 WBC (0); Platelet Count 209 Thou/mm3 (140-440); RDW Standard Deviation 47.5 fL (35.1-43.9); Red Blood Count 4.94 Miln/mm3 (4.50-5.90); White Blood Count 8.3 Thou/mm3 (3.8-10.6)
[2025-04-04 22:12] LABS: Alanine Aminotransferase 23 U/L (10-49); Albumin, Serum 4.4 gm/dL (3.5-5.0); Albumin/Globulin Ratio 1.5 (1.2-2.2); Alcohol, Blood Medical < 3.0 mg/dL (0-10.0); Alkaline Phosphatase 88 U/L (46-116); Anion Gap 10 (7-16); Aspartate Amino Transferase 23 U/L (0-34); BUN/Creatinine Ratio 21 Ratio (12-20); Bilirubin,Total 0.9 mg/dL (0.3-1.2); Blood Urea Nitrogen 19 mg/dL (9-23); Calcium 9.5 mg/dL (8.3-10.6); Calcium (Corrected) 9.5 mg/dL (8.5-10.1); Carbon Dioxide 26.3 mMol/L (20.0-31.0); Chloride 103 mMol/L (98-107); Creatinine (Component) 0.9 mg/dL (0.6-1.3); Globulin 2.9 gm/dL (2.3-3.5); Glucose 136 mg/dL (74-106); Lipase 48 U/L (12-53); Osmolality,Calculated 281 (275-295); Potassium 3.8 mMol/L (3.4-5.1); Sodium 139 mMol/L (136-145); Total Protein 7.3 gm/dL (5.7-8.2); Troponin I < 0.020 ng/mL (0.0-0.045); eGFR > 60 See Note
[2025-04-04 23:22] VITALS: BP 144/94; PULSE 81; RESP 21; TEMP 37; O2SAT 93
[2025-04-04 23:23] VITALS: BP 144/94; PULSE 79
[2025-04-04] MEDS: NITROGLYCERIN 0.4 MG SUBL BTL #25 SL (23:23)
--- NOTE | 2025-04-05 | PD.EDCHEST ---
ED Chest Pain RME/HPI General Chief Complaint: General Adult/Misc Complain Stated Complaint: COUGHING SINCE YESTERDAY, CHEST AREA PAIN Time Seen by Provider: 04/04/25 21:08 Arrival date/time: 04/04/25 20:42 RME / HPI RME / HPI narrative: DR. 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 Denies recent strenuous activity. No recent URI or cough. Denies ? lower extremity pain or swelling. PMH: Hypercholesterolemia, Hypertension, Colorectal Cancer, Obesity, Benign Prostatic Hyperplasia PSH: Partial colectomy Allergies: NKDA Social: Ocassional alcohol, No tobacco, No illicit drug abuse Related Data Home Medications ?Medication ?Instructions ?Recorded ?Confirmed valsartan 160 1 tab PO QDAY 04/26/23 11/07/24 mg-hydrochlorothiazide 12.5 mg tablet tamsulosin 0.4 mg capsule 0.4 mg PO QHS 06/20/24 11/07/24 acyclovir 400 mg tablet 400 mg PO BID 07/08/24 11/07/24 amlodipine 5 mg tablet 5 mg PO QDAY 07/08/24 11/07/24 atorvastatin 20 mg tablet 20 mg PO HS 07/08/24 11/07/24 empagliflozin 12.5 mg-metformin 1 tab PO QDAY 07/08/24 11/07/24 500 mg tablet (Synjardy) brimonidine 0.2 %-timolol 0.5 % 1 drp ophthalmic (eye) BID 07/09/24 11/07/24 eye drops latanoprost 0.005 % eye drops 1 drp ophthalmic (eye) HS 07/09/24 11/07/24 prednisolone acetate 1 % eye 1 drp ophthalmic (eye) Q12H 07/09/24 11/07/24 drops,suspension Previous Rx's ?Medication ?Instructions ?Recorded hydrocodone 10 mg-acetaminophen 1 tab PO Q6H PRN pain #14 tabs 08/22/24 325 mg tablet hydrocodone 5 mg-acetaminophen 325 1 tab PO BID PRN pain #10 tabs 12/04/24 mg tablet ibuprofen 800 mg tablet 800 mg PO TID PRN pain #30 tabs 12/04/24 hydrocodone 5 mg-acetaminophen 325 1 tab PO Q8H PRN pain #24 tabs 04/05/25 mg tablet naproxen 250 mg tablet 250 mg PO BID PRN pain #10 tabs 04/05/25 Allergies Allergy/AdvReac Type Severity Reaction Status Date / Time No Known Allergies Allergy Verified 12/04/24 04:05 Review of Systems Review of Systems Systems Reviewed: All systems reviewed, normal except as documented Past Medical History Past Medical History CARDIAC: Positive Hypercholesterolemia and Hypertension GASTROINTESTINAL: Positive Colorectal Cancer and Obesity GENITOURINARY: Positive Benign Prostatic Hyperplasia OTHER HISTORY: Positive Hospitalization and Colorectal Cancer Family History FAMILY HISTORY: Positive Family Cardiac Disorders and Family Surgery Surgical History SURGICAL: Positive Eye Surgery and Bowel Surgery ED Exam Narrative Physical exam: GEN. APPEARANCE: The patient is alert awake oriented X-3 experienced paroxysms of intense chest pain, lying down comfortably, severe pain upon assuming upright position, does not look ill/toxic. Patient has good eye contact. Patient is cooperative. VITALS: All vitals were reviewed and the pulse ox is 96%, which is normal according to my interpretation HEENT: Normocephalic, atraumatic and nontender. Pupils are equal and reactive. Oral mucosa is moist. NECK: Supple, nontender, no meningismus, no JVD. There is no thyromegaly and no lymphadenopathy. CHEST: Diffusely tender on palpation at costochondral junction, parasternal limited excursion, no deformity and no crepitus. CARDIOVASCULAR: Heart regular rhythm, no murmur or gallop rub or extra beats. LUNGS: Clear to auscultation bilaterally with symmetrical chest rise. Diminished breath sounds. No laboring tachypnea or wheezing. No intercostal subcostal retraction. No rales and no rhonchi. ABDOMEN: Soft, flat, nontender to palpation, no guarding or rebound tenderness. There are no abnormal masses palpated. No pulsatile masses or bruits. Active and normal bowel sounds. EXTREMITIES: Normal inspection and palpation. No edema. No cyanosis. Patient is able to move all 4 extremities well SKIN: Warm and dry, no rashes noted. MUSCULOSKELETAL: No lumbar or midline bony tenderness. There is no CVA tenderness. No paraspinal muscle spasm or tenderness. NEURO: Cranial nerves II through XII grossly intact. There are no focal neurologic deficits noted. GCS is 15 PSYCHIATRIC: Patient is in normal mood and affect, cooperative. LYMPHATICS: No major lymphadenopathy noted. Course Quality Measures none Orders Category Date Time Status CT Screening NOW Care 04/05/25 00:08 Active EKG (ED ONLY) *Do not use* NOW Care 04/04/25 20:[address] angio chest Stat Exams 04/05/25 00:06 Taken EKG (ED Only) Stat Exams 04/04/25 20:45 Draft XR chest 1V portable Stat Exams 04/04/25 21:17 Completed Alcohol, Blood Medical Stat Lab 04/04/25 21:32 Completed CBC Stat Lab 04/04/25 21:32 Completed CMP [Comprehensive Metabolic Panel] Stat Lab 04/04/25 21:32 Completed Lactate (Lactic Acid) Stat Lab 04/04/25 21:32 Completed Lactic Acid, 3 HR Stat Lab 04/05/25 01:27 Completed Lipase Stat Lab 04/04/25 21:32 Completed Troponin I Stat Lab 04/04/25 21:32 Completed Troponin I Stat Lab 04/05/25 03:14 Completed Ketorolac Inj [Toradol Inj] Med 04/05/25 00:06 Discontinued 30 mg IVP X1 ONE Morphine* Inj Med 04/05/25 00:07 Discontinued 4 mg IVP X1 ONE Nitroglycerin [Nitrostat 1/150] Med 04/04/25 21:16 Discontinued 0.4 mg SL X1 ONE Prochlorperazine Inj [Compazine Inj] Med 04/05/25 00:06 Discontinued 5 mg IV X1 ONE Vital Signs Vital signs: Vital Signs Temperature 99.1 F 04/04/25 21:07 Pulse Rate 78 04/04/25 21:07 Respiratory Rate 22 H 04/04/25 21:07 Blood Pressure 135/78 H 04/04/25 21:07 Pulse Oximetry (%) 97 04/04/25 21:07 Oxygen Delivery Method Room Air 04/04/25 21:07 Chest Pain MDM Narrative MDM Narrative:: Scribe Attestation: Venita Chaudhari, harpreet scribing for and in the presence of Dr. Fairbanks. Provider Notation: Although this document has been carefully reviewed, there may still be some phonetic and other typographical errors. These errors are purely grammatical due to imperfections in the software program and should not be construed in any way to compromise the substance of the patient's medical care during this visit. 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 Denies recent strenuous activity. Please see PE findings. Laboratory markers, including CBC, serum chemistries, and seral Troponin analysis were unremarkable. Patient referred for CTA of the chest which failed to demonstrate pulmonary embolism, but did demonstrate evidence of atelectasis. Patient was treated with low-dose narcotic analgesics/anti-emetics in addition to NSAIDS with mild to moderate relief. Reports no relief with Nitroglycerin at presentation. Patient has pleuritic chest pain secondary to atelectasis. Will be provided with incentive spirometer, narcotic analgesics, and NSAIDS with close f/u anticipated. Precautionary instructions issued. Final diagnoses include pleurisy and atelectasis. Patient data External records reviewed:: [facility] previous records (Reviewed prior ED records from 12/04/24. Patient was seen for Headache.) Clinical information provided by:: patient Social determinants that could affect healthcare access:: alcohol use Patient has the following chronic illnesses:: Hypercholesterolemia, Hypertension, Colorectal Cancer, Obesity, Benign Prostatic Hyperplasia How is presenting disease/condition affected by chronic disease/condition?: exacerbated by Evaluation data The following diagnostics were reviewed and interpreted by me:: lab results, radiology exam(s) and EKG tracing(s) (EKG at 21:05 shows normal sinus rhythm at 91, leftward axis, no ectopy, no signs of acute ischemia, per my interpretation.) Lab and/or radiology exams considered but not ordered:: None Interpretation Summary: RADIOLOGY Chest X-Ray: FINDINGS: Mild enlargement cardiac contour Mild prominence pulmonary vasculature Left subclavian Port-A-Cath tip satisfactory position No pneumonia or pulmonary edema IMPRESSION: Mild prominence pulmonary vasculature Chest CTA: Findings: There is no filling defect within the pulmonary artery divisions to suggest pulmonary thromboembolism. The mediastinum demonstrates no evidence of mass or lymphadenopathy. The thoracic aorta is unremarkable. Mild bilateral lower lobes atelectasis. ial effusion. The lungs are clear. No evidence of pleural effusion or pneumothorax. The osseous structures are unremarkable. Mild irregular liver margins. Left anterior chest wall Port-A-Cath with the distal tip at the superior cavoatrial junction. Coronary arteries calcifications. Dilated left atrium. Impression: 1. No CT evidence of pulmonary thromboembolism or other acute intrathoracic pathology. 2. Coronary arteries calcifications. If acute myocardial infarction is clinically suspected, consider correlation with troponin. 3. Possible cirrhosis. 4. Dilated left atrium. Medications / Prescriptions Medications or Prescriptions considered but not ordered:: None Medication administrations:: Medication Administration History Discontinued Medications Ketorolac Tromethamine (Ketorolac Inj 30 Mg/Ml Vial) 30 mg IVP X1 ONE Stop: 04/05/25 00:07 Last Admin: 04/05/25 00:17 Dose: 30 mg Documented By: FEDERICO Morphine Sulfate (Morphine Sulf Inj 4 Mg/Ml Vial) 4 mg IVP X1 ONE Stop: 04/05/25 00:08 Last Admin: 04/05/25 00:17 Dose: 4 mg Documented By: FEDERICO Nitroglycerin (Nitroglycerin 0.4 Mg Subl Btl #25) 0.4 mg SL X1 ONE Stop: 04/04/25 21:17 Last Admin: 04/04/25 23:23 Dose: 0.4 tab Documented By: FEDERICO Prochlorperazine Edisylate (Prochlorperazine Inj 5 Mg/Ml Vial 2 Ml) 5 mg IV X1 ONE; Protocol Stop: 04/05/25 00:07 Last Admin: 04/05/25 00:17 Dose: 5 mg Documented By: FEDERICO See above if any. Consultations Consultation(s) initiated? (list below): No Diagnosis Chest Pain Differential Diagnosis: fracture of rib, pneumothorax, stable angina, unstable angina pectoris, atypical chest pain, st elevation myocardial infarction, costochondritis, chest pain and biliary colic Most likely diagnosis given after review of the tests above:: Pleurisy and Atelectasis Admission Indicated Admission indicated?: not indicated Explain why admission is indicated or not indicated:: Patient does not meet admission criteria. Admission Request Was there a request for admission?: No Disposition Plan Disposition Plan: Discharge Discharge Attestation Discharge Attestation: The patient and all family members were given an opportunity to ask questions and understood the discharge instructions. Discharge instructions specifically effects, indications for sooner follow up or return to the emergency department, and the expected course of current diagnosis. Patient condition: Stable Discharge Plan Plan Patient Disposition: HOME (Self Care) Prescriptions/Referrals Prescriptions/Med Rec: No Action valsartan-hydrochlorothiazide 160-12.5 mg tablet 1 tab PO QDAY tamsulosin 0.4 mg capsule 0.4 mg PO QHS amlodipine 5 mg tablet 5 mg PO QDAY Patient Comments: TAKE ONE TABLET BY MOUTH EVERY DAY FOR BLOOD PRESSURE acyclovir 400 mg tablet 400 mg PO BID Patient Comments: TAKE ONE TABLET BY MOUTH TWICE DAILY atorvastatin 20 mg tablet 20 mg PO HS Patient Comments: TAKE ONE TABLET BY MOUTH EVERY DAY FOR CHOLESTEROL Synjardy 12.5-500 mg tablet 1 tab PO QDAY Patient Comments: TAKE ONE TABLET BY MOUTH TWICE DAILY FOR DIABETES hydrocodone-acetaminophen 10-325 mg tablet 1 tab PO Q6H MDD 4 PRN (Reason: pain) Qty: 14 0RF ibuprofen 800 mg tablet 800 mg PO TID PRN (Reason: pain) Qty: 30 0RF hydrocodone-acetaminophen 5-325 mg tablet 1 tab PO BID MDD 10 PRN (Reason: pain) Qty: 10 0RF prednisolone acetate 1 % drops,suspension 1 drp OPHTHALMIC (EYE) Q12H Patient Comments: USE 1 DROP IN THE RIGHT EYE TWICE A DAY brimonidine-timolol 0.2-0.5 % drops 1 drp OPHTHALMIC (EYE) BID Patient Comments: USE 1 DROP IN THE RIGHT EYE TWICE DAILY latanoprost 0.005 % drops 1 drp OPHTHALMIC (EYE) HS Patient Comments: USE 1 DROP IN THE RIGHT EYE AT BEDTIME Referrals: No Primary/Family,Physician [Primary Care Provider] - In 1 week Problem List Clinical Impression: Atelectasis, Pleurisy Patient/Caregiver Discharge Instructions Print Language: Norwegian Stand Alone Forms: Sudha Award Info., Patient Portal Info Letter
--- NOTE | 2025-04-05 00:06 | XR_ITS ---
Examination: CTA chest with intravenous contrast 2-D reconstructions 3-D reconstructions, vascular Date and time of exam: April 05, 2025, 0114 hours INDICATIONS: Chest pain shortness of breath today, clinical diagnosis pulmonary emboli, coughing 2 days CTDI: vol (mGy) 42 DLP: (mGycm) 704 Technique: Multiple axial sections of the thorax have been obtained. 3 mm slice thickness, from below the hemidiaphragms to above the apices of the lungs. Mediastinal and lung density settings have been obtained. 2-D sagittal and coronal reconstructions. 3-D angiographic renderings, 3-D volume renderings, 3D post processing, vascular maximum intensity projections obtained. Contrast administered is 100 cc [id number]. Low dose protocols were performed. One or more of the following dose reduction techniques were used; automated exposure control, adjustment of the mA and/or KV according to patient size, use of iterative reconstruction technique. 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
[2025-04-05 00:14] VITALS: BP 135/85; PULSE 78; RESP 20; TEMP 36.8; O2SAT 96
[2025-04-05] MEDS: MORPHINE SULF INJ 4 MG/ML VIAL IVP (00:17)
[2025-04-05] MEDS: KETOROLAC INJ 30 MG/ML VIAL IVP (00:17)
[2025-04-05] MEDS: PROCHLORPERAZINE INJ 5 MG/ML VIAL 2 ML IV (00:17)
[2025-04-05 00:44] LABS: Reflex Lactate? Y
[2025-04-05 01:47] LABS: Lactic Acid, 3 HR 1.1 mMol/L (0.4-2.0)
--- NOTE | 2025-04-05 03:00 | PRELIM_ITS ---
CT angiogram of the chest with intravenous contrast (axial sections with sagittal and coronal reformats) April 05, 2025 0114 hours Clinical History: Rule out pulmonary thromboembolism. Technique:Helical axial sections with sagittal and coronal reformats of the chest were obtained with intravenous contrast. Iterative reconstruction technique was employed to reduce patient radiation exposure. 3D/MIP reconstructed images were also provided. Comparison: None available at the time of this report. Findings: There is no filling defect within the pulmonary artery divisions to suggest pulmonary thromboembolism. The mediastinum demonstrates no evidence of mass or lymphadenopathy. The thoracic aorta is unremarkable. Mild bilateral lower lobes atelectasis. ial effusion. The lungs are clear. No evidence of pleural effusion or pneumothorax. The osseous structures are unremarkable. Mild irregular liver margins. Left anterior chest wall Port-A-Cath with the distal tip at the superior cavoatrial junction. Coronary arteries calcifications. Dilated left atrium. Impression: 1. No CT evidence of pulmonary thromboembolism or other acute intrathoracic pathology. 2. Coronary arteries calcifications. If acute myocardial infarction is clinically suspected, consider correlation with troponin. 3. Possible cirrhosis. 4. Dilated left atrium. Report Electronically Signed By: Umair Esteban 04/05/2025 3:00:04 AM [EST]
[2025-04-05 03:37] LABS: Troponin I < 0.020 ng/mL (0.0-0.045)
[2025-04-05 04:10] VITALS: BP 113/75; PULSE 66; RESP 16; TEMP 37.1; O2SAT 93
== END 2025-04-05 04:51 | disposition home or self-care (01) ==
PROVIDERS: Physician Assistant; Emergency Provider Emergency Medicine
DX: R09.1 Pleurisy (principal); J98.11 Atelectasis; I49.3 Ventricular premature depolarization
CPT/HCPCS: 36415; 71045; 71275; 80053; 80320; 83605; 83690; 84484; 85025; 93005; 96374; 96375; 99284; A4649; J0780; J1885; J2270; Q9967; A9270; G0480